=== PATIENT | male | born 1960 | race Caucasian/White ===

== ENCOUNTER 2020-06-18 01:13 | Outpatient (CLI) | payer BC, SELFPAY ==
[2020-06-18 18:11] LABS: SARS-CoV-2 RNA PCR Negative
== END 2020-06-18 01:14 | disposition home or self-care (01) ==
LOC: ANHCOVIDDT 01:14
PROVIDERS: PCP Internal Medicine; Visit Provider Otolaryngology
DX: Z01.812 Encounter for preprocedural laboratory examination (principal); Z11.59 Encounter for screening for other viral diseases
CPT/HCPCS: 87635; C9803; U0003

== ENCOUNTER 2020-06-18 09:10 | Outpatient (CLI) | payer BC, SELFPAY ==
--- NOTE | 2020-06-18 09:20 | ECG_ITS ---
Measurements Intervals Catherine Rate: 89 P: 84 NJ: 152 QRS: 43 QRSD: 92 T: 60 QT: 353 QTc: 432 Interpretive Statements SINUS RHYTHM INCOMPLETE RIGHT BUNDLE BRANCH BLOCK BASELINE ARTIFACT- I, II, III BORDERLINE ECG Electronically Signed On 06-18-2020 10:27:20 CDT by Alireza Hill D.O.
[2020-06-18 09:58] LABS: Anion Gap 9 mmol/L (8-16); Blood Urea Nitrogen 8 mg/dL (9-20); Calcium 9.2 mg/dL (8.4-10.2); Carbon Dioxide 26 mmol/L (22-30); Chloride 100 mmol/L (98-107); Estimated Glomerular Filt Rate > 60; Glucose 115 mg/dL (75-110); Potassium 4.3 mmol/L (3.4-5.0); Sodium 135 mmol/L (137-145)
== END 2020-06-18 09:11 | disposition home or self-care (01) ==
PROVIDERS: PCP Internal Medicine; Visit Provider Anesthesiology
DX: Z01.818 Encounter for other preprocedural examination (principal); I10 Essential (primary) hypertension; Z79.899 Other long term (current) drug therapy
CPT/HCPCS: 36415; 80048; 93005

== ENCOUNTER 2020-06-21 01:46 | Day surgery (SDC) | payer BC, SELFPAY ==
[2020-06-13 11:32] VITALS: BMI 35.7
--- NOTE | 2020-06-20 10:11 | WPDANESEPP ---
Anes - Eval Pre Procedure Procedure: Operation Date: 06/21/20 07:30 Proposed Procedures p Removal Left Myringotomy Tube - Reilly Reyes MD Date/Time: 06/20/20 10:11 Pre Op Diagnosis: left chronic otitis media Patient Data Age: 60 Gender: M Height: 1.65 m Weight: 97.52 kg Allergies Allergy/AdvReac Type Severity Reaction Status Date / Time No Known Allergies Allergy Verified 06/13/20 11:33 Home Medications Medication Instructions Recorded Confirmed Type acetaminophen 300 mg-codeine 30 mg 1 tablet PO Q4-6H PRN #30 tablet 06/13/20 06/13/20 Rx tablet atorvastatin 20 mg PO DAILY 06/13/20 06/13/20 History clindamycin HCl 300 mg capsule 300 mg PO Q8H #30 cap 06/13/20 06/13/20 Rx furosemide 40 mg PO DAILY PRN 06/13/20 06/13/20 History lisinopril 20 mg PO DAILY 06/13/20 06/13/20 History ofloxacin 0.3 % ear drops 5 drop EACH EAR BID 10 Days #10 ml 06/13/20 06/13/20 Rx Patient hx anesthesia problems: none Family hx anesthesia problems: none PMFSH Past Medical History Medical History (Updated 06/20/20 @ 10:13 by Aaliyah Pimentel CRNA) COPD (chronic obstructive pulmonary disease) H/O opioid abuse Hyperlipidemia Hypertension Surgical History Surgical History (Updated 06/20/20 @ 10:13 by Aaliyah Pimentel CRNA) H/O knee surgery H/O shoulder surgery Social History Social History Smoking packs per day: 1 Smoking cigarettes per day: 20.0 Years smoked: 47 Smoking pack-years: 47.00 Smoking status: Current some day smoker Tobacco type: cigarettes Alcohol intake: current Drinks per week: 12 Substance use: former Substance use type: former substance user Other substance usage details: PER EMR- PATIENT HAS FORMER HISTORY OF COCAINE/NARCOTIC ABUSE Spiritual care concerns: No Exam Day of Procedure 06/20/20 10:11
--- NOTE | 2020-06-21 06:04 | PM.HPGS ---
History of Present Illness History of Present Illness Consent: Risks, benefits, and alternatives have been discussed and questions answered. Patient agrees to proceed with procedure. Chief complaint: left chronic otitis media Narrative: Baljit Green is a 60 year old male He has a persistent left tube has been persistently draining unresponsive to antibiotics and drops he is admitted now for elective removal left t Review of Systems Review of Systems: All systems reviewed & are unremarkable except as noted in HPI and below PMFSH Past Medical History Medical History (Updated 06/20/20 @ 10:13 by Aaliyah Pimentel CRNA) COPD (chronic obstructive pulmonary disease) H/O opioid abuse Hyperlipidemia Hypertension Surgical History Surgical History (Updated 06/20/20 @ 10:13 by Aaliyah Pimentel CRNA) H/O knee surgery H/O shoulder surgery Social History Social History Smoking packs per day: 1 Smoking cigarettes per day: 20.0 Years smoked: 47 Smoking pack-years: 47.00 Smoking status: Current some day smoker Tobacco type: cigarettes Alcohol intake: current Drinks per week: 12 Alcohol use details: PER EMR- PATIENT HAS HISTORY OF ALCOHOL ABUSE- 12-16 DRINKS/DAY Substance use: former Substance use type: former substance user Other substance usage details: PER EMR- PATIENT HAS FORMER HISTORY OF COCAINE/NARCOTIC ABUSE Spiritual care concerns: No Meds Home Medications and Allergies Home Medications Medication Instructions Recorded Confirmed Type acetaminophen 300 mg-codeine 30 mg 1 tablet PO Q4-6H PRN #30 tablet 06/13/20 06/13/20 Rx tablet atorvastatin 20 mg PO DAILY 06/13/20 06/13/20 History clindamycin HCl 300 mg capsule 300 mg PO Q8H #30 cap 06/13/20 06/13/20 Rx furosemide 40 mg PO DAILY PRN 06/13/20 06/13/20 History lisinopril 20 mg PO DAILY 06/13/20 06/13/20 History ofloxacin 0.3 % ear drops 5 drop EACH EAR BID 10 Days #10 ml 06/13/20 06/13/20 Rx Allergies Allergy/AdvReac Type Severity Reaction Status Date / Time No Known Allergies Allergy Verified 06/13/20 11:33
--- NOTE | 2020-06-21 06:06 | WPDHPUPDATE1 ---
History and Physical Update Update Date/Time: 06/21/20 06:06 History and Physical has been reviewed, including an updated exam of the patient. There are NO changes in the patient's condition. Risks, benefits, and alternatives have been discussed and questions answered. Patient agrees to proceed with procedure.
[2020-06-21] MEDS: ACETAMINOPHEN 500 MG TABLET 1000 MG PO (06:11)
[2020-06-21 06:12] VITALS: BP 141/105; PULSE 97; RESP 24; TEMP 36.2; O2SAT 98
[2020-06-21] MEDS: LACTATED RINGERS 1,000 ML 30 ML IV CONT (06:20)
--- NOTE | 2020-06-21 06:27 | WPDANESEFPP ---
Anes - Eval Final PreProcedure Day of Procedure 06/21/20 06:27 Patient weight: obese Heart: regular rate and rhythm Lungs: clear to auscultation Airway: Mallampati scale class III Neurological: alert and oriented ASA classification: III Emergent: no Anesthetic plan: proceed Anesthesia type and monitoring: general and standard monitoring Informed Consent: The patient's anesthetic plan and its attendant risks and benefits were discussed with the patient/family/POA. Questions were solicited and answers provided to the satisfaction of the patient/family/POA.
[2020-06-21] MEDS: CIPROFLOXACIN HCL 0.3% OP SOLN 2.5 ML BTL 4 DROP EACH EAR (07:22)
[2020-06-21 07:24] VITALS: BP 110/65; PULSE 96; RESP 12; O2SAT 96
--- NOTE | 2020-06-21 07:24 | PM.PROC ---
Procedure Note - Detailed Date of procedure: 06/21/20 Pre-op diagnosis: left chronic otitis media Post-op diagnosis: same Procedure performed: Removal left T-tube Description of procedure: patient prepped and draped in fashion all seizure the left ear was inspected debris suctioned from the ear canal a T-tube was removed drops placed in ear canal procedure terminated anesthesia general postop diagnosis same Anesthesia: GLMA Surgeon: Reilly Reyes MD Estimated blood loss (mL): 0 Drains: No Packing: No Pathology: none sent Complications: No immediate complications Condition: stable Disposition: PACU Findings: left myringotomy tube removed
[2020-06-21 07:45] VITALS: BP 114/67; PULSE 79; RESP 12
[2020-06-21 08:10] VITALS: BP 141/94; PULSE 81; RESP 12
== END 2020-06-21 08:28 | disposition home or self-care (01) ==
PROVIDERS: PCP Internal Medicine; Visit Provider Otolaryngology
PROC: (CPT 69424; principal; 2020-06-21 07:30)
DX: Z45.82 Encounter for adjustment or removal of myringotomy device (stent) (tube) (principal); H66.92 Otitis media, unspecified, left ear; I10 Essential (primary) hypertension; E78.5 Hyperlipidemia, unspecified; J44.9 Chronic obstructive pulmonary disease, unspecified; F17.210 Nicotine dependence, cigarettes, uncomplicated; F10.10 Alcohol abuse, uncomplicated
CPT/HCPCS: 69424; A9270; J2704; J7120

== ENCOUNTER 2022-04-19 03:38 | Observation (INO) | payer SELFPAY ==
[2022-04-19] VITALS (19 sets, daily range): BP systolic 121–189; BP diastolic 72–147; PULSE 75–100; RESP 16–25; TEMP 36.1–36.7; O2SAT 96–100; BMI 31.0
--- NOTE | ~2022-04-19 | US_ITS ---
EXAMINATION: US carotid duplex BI DATE: 04/19/2022 15:00 INDICATION: Syncope TECHNIQUE: Grayscale, color Doppler, and pulsed Doppler images of the cervical carotid arteries were obtained. The degree of vessel stenosis is placed in one of the following categories: normal, <50%, 5 0-69%, >=70% but less than near-occlusion, near-occlusion, or total occlusion. Note that percent sten osis relative to normal distal artery lumen diameter is indirectly measured from velocity measurement s as described by Gregory, et al. Radiology 2003; 229:340-346. Notes: Normal: Peak systolic velocity <125 centimeters/sec and no plaque <50%. Peak systolic velocity <125 ( EDV <40; ICA/CCA PSV ratio <2.0; used these factors only a tandem lesions or low cardiac output or co ntralateral disease) 50-69 %: PSV 125-230 (EDV 40-100; ratio 2-4) >= 70% but less than near occlusion: PSV greater than 230 (EDV > 100; ratio> 4.0) Near Occlusion: PSV that is variable; markedly narrowed lumen Occlusion: Absent flow on color/spectral Doppler and no lumen on rea scale. COMPARISON: None. FINDINGS: RIGHT: The right common carotid artery (CCA) peak systolic velocity (PSV) is 79 cm/s. The right internal car otid artery (ICA) PSV is 68 cm/s. The right ICA end-diastolic velocity (EDV) is 14 cm/s. The right IC A/CCA PSV ratio is 0.9. The external carotid artery (ECA) PSV is 114 cm/s. There is antegrade flow in the right vertebral artery. LEFT: The left CCA PSV is 81 cm/s. The left ICA PSV is 52 cm/s. The left ICA EDV is 17 cm/s. The left ICA/C CA PSV ratio is 0.6. The ECA PSV is 119 cm/s. There is antegrade flow in the left vertebral artery. IMPRESSION: 1. Less than 50% stenosis in the right internal carotid artery by sonographic criteria. 2. Less than 50% stenosis in the left internal carotid artery by sonographic criteria. Reviewed, dictated and finalized at location B. IMPRESSION: 1. Less than 50% stenosis in the right internal carotid artery by sonographic anthony ferrer. 2. Less than 50% stenosis in the left internal carotid artery by sonographic malcolm lucas.
--- NOTE | ~2022-04-19 | US_ITS ---
US abdomen limited INDICATION: Elevated liver function tests PROCEDURE: Realtime right upper abdominal ultrasound. COMPARISON: No prior studies for comparison. FINDINGS: The pancreas is normal without focal mass or pancreatic ductal dilation. Liver echotexture is increased, consistent with fatty infiltration. There is normal directional flow in the portal ve in. The gallbladder is normal without stones, gallbladder wall thickening or pericholecystic fluid. Comm on bile duct measures 4 mm. No sonographic Rivera's sign. IMPRESSION: 1: Hepatic steatosis. Reviewed, dictated and finalized at location B. IMPRESSION: 1: Hepatic steatosis.
--- NOTE | ~2022-04-19 | CT_ITS ---
EXAMINATION: CT brain wo con DATE: 04/19/2022 05:44 INDICATION: Transient alteration of awareness. Visual change in right eye. TECHNIQUE: Computed tomography (CT) of the head was performed without intravenous contrast. The mA wa s adjusted according to patient size. Iterative reconstruction technique was employed. The dose-lengt h product was 681.00 mGy-cm. COMPARISON: None FINDINGS: There are scattered areas of low attenuation in the cerebral white matter. There is no intr acranial hemorrhage, acute infarction, or abnormal intracranial mass lesion. The ventricles are lani l in size. There is mild mucosal thickening in the paranasal sinuses. There are small bilateral masto id effusions. The orbits are normal. IMPRESSION: 1. Mild nonspecific cerebral white matter disease, which likely represents chronic small vessel ische cat disease. Reviewed, dictated and finalized at location A. IMPRESSION: 1. Mild nonspecific cerebral white matter disease, which likely represents senior major gifts officer ricardo small vessel ischemic disease.
--- NOTE | ~2022-04-19 | XR_ITS ---
EXAMINATION: XR chest 1V portable DATE: 04/19/2022 04:18 INDICATION: Cough. TECHNIQUE: A single frontal view of the chest was obtained. COMPARISON: Chest single view 05/18/2019, chest CT 05/18/2019 FINDINGS: There is mild atelectasis in left lower lung zone. No pleural effusion or pneumothorax. The heart size is normal. There are suture anchors in right scapula. IMPRESSION: 1. Mild atelectasis in left lower lung zone. Reviewed, dictated and finalized at location A.
--- NOTE | 2022-04-19 03:46 | ECG_ITS ---
Measurements Intervals Echo Rate: 94 P: 82 UT: 149 QRS: 30 QRSD: 100 T: 59 QT: 357 QTc: 448 Interpretive Statements SINUS RHYTHM COMPARED TO ECG 06/18/2020 09:27:29 NO SIGNIFICANT CHANGES Electronically Signed On 04-19-2022 20:32:20 CDT by Sarah Lechuga M.D.
[2022-04-19] MEDS: predniSONE 20 MG TABLET 40 MG PO (03:58)
--- NOTE | 2022-04-19 04:01 | ED.SOB ---
HPI - SOB/Dyspnea General Chief Complaint: Shortness of Breath/Dyspnea Stated Complaint: SOB Time Seen by Provider: 04/19/22 03:46 History of Present Illness HPI Narrative: 61-year-old male presents here with increasing difficulty breathing over the last few weeks to months, worse on exertion. Per she has also found him slumped over most recently in his car yesterday, drooling and unresponsive, and when he wakes up seems as in confused for about 1 to 2 minutes before being completely back to baseline. She has also found him in this state slumped in the bathroom over the past few months but he didn't want to come to the hospital. She also states that this morning when he woke up he thought he saw something filmy over his right eye, and when he rubbed his eye he could see again. He is denying any chest pain or difficulty breathing. states that over the past few years he seems to be getting more forgetful, and will have bursts of emotion/crying. Denies any chest pain at this time, nausea or vomiting. No headache. No focal numbness or weakness. Related Data Home Medications Medication Instructions Recorded Confirmed furosemide 40 mg tablet 40 mg PO DAILY PRN Edema 06/13/20 06/21/20 lisinopril 20 mg tablet 20 mg PO DAILY 06/13/20 06/21/20 Allergies Allergy/AdvReac Type Severity Reaction Status Date / Time No Known Allergies Allergy Verified 04/19/22 03:53 Review of Systems Review of Systems: CONST: No fever. HEENT: No sore throat C/V: No chest pain RESP: Difficulty breathing GI: No nausea or vomiting : No dysuria. M/S: No joint pain. SKIN: No rash. NEURO: [No headache or focal numbness or weakness] PSYCH: Increased forgetfulness PMFSH Past Medical History Medical History COPD (chronic obstructive pulmonary disease) H/O opioid abuse Hyperlipidemia Hypertension Surgical History Surgical History H/O knee surgery H/O shoulder surgery Social History Social History Smoking packs per day: 1 Smoking cigarettes per day: 20.0 Years smoked: 47 Smoking pack-years: 47.00 Smoking status: Current some day smoker Tobacco type: cigarettes Alcohol intake: current Drinks per week: 12 Alcohol use details: PER EMR- PATIENT HAS HISTORY OF ALCOHOL ABUSE- 12-16 DRINKS/DAY Substance use: former Substance use type: former substance user Other substance usage details: PER EMR- PATIENT HAS FORMER HISTORY OF COCAINE/NARCOTIC ABUSE Spiritual care concerns: No Exam Narrative: EXAMINATION OF ORGAN SYSTEMS/BODY AREAS: Constitutional: Vital signs per nursing GENERAL: Dyspneic HEAD: Normal with no signs of head trauma. EYES: EOMI, conjunctiva normal, VA 20/30 OD and 20/25 OS, dried crust/discharge around right eye ENT: Hearing grossly intact LUNGS: Tachypneic, prolonged end expiratory phase with wheezing HEART: [Regular rate and rhythm] ABD: [Soft], [nontender to palpation] EXT: Normal range of motion SKIN: [No rashes or lesions.] NEURO: [Alert and oriented x 3. No gross focal sensory or strength deficits.] PSYCH: Slightly anxious/labile affect Course Vital Signs Vital signs: Vital Signs Temperature 98.1 F 04/19/22 03:48 Pulse Rate 98 04/19/22 03:48 Respiratory Rate 25 H 04/19/22 03:48 Blood Pressure 189/108 H 04/19/22 03:48 Pulse Oximetry 97 04/19/22 03:48 Oxygen Delivery Room Air 04/19/22 03:48 Temperature 98.1 F 04/19/22 03:48 Pulse Rate 99 04/19/22 05:20 Respiratory Rate 20 04/19/22 05:16 Blood Pressure 143/97 H 04/19/22 05:16 Pulse Oximetry 100 04/19/22 05:17 Oxygen Delivery Room Air 04/19/22 05:17 MDM - SOB/Dyspnea MDM Narrative Medical decision making narrative: 61-year-old male presents with multiple episodes of syncope, dyspnea on exertion, which has been worsening over the last
[2022-04-19] MEDS: ALBUTEROL SULFATE NEB 2.5 MG/3 ML INH 15 MG INHALATION (04:04)
[2022-04-19] MEDS: IPRATROPIUM BR 0.02% INH SOLN 0.5 MG/2.5 ML VIAL 1 MG INHALATION (04:04)
[2022-04-19 04:09] LABS: Basophils Absolute Auto 0.1 K/mm3 (0.0-0.1); Basophils Percent Auto 0.9 % (0.2-1.2); Eosinophils Absolute Auto 0.1 K/mm3 (0-0.3); Immature Granulocyte Absolute 0.02 K/mm3 (0.00-0.031); Immature Granulocyte Percent A 0.3 % (0-0.5); Lymphocytes Absolute Auto 2.23 K/mm3 (0.9-3.2); Lymphocytes Percent Auto 38.6 % (18.3-44.2); Mean Corpuscular HGB Conc 34.1 g/dl (32-36); Mean Corpuscular Hemoglobin 34.2 pg (26-34); Mean Corpuscular Volume 100.5 fl (80-100); Monocytes Absolute Auto 0.8 K/mm3 (0.1-0.6); Neutrophils Absolute Auto 2.7 K/mm3 (1.3-6.7); Neutrophils Percent Auto 46.2 % (45.5-73.1); Platelet Count Result 209 k/mm3 (150-375); Red Blood Count 4.38 M/mm3 (4.6-6.20); Red Cell Distribution Width 12.2 % (11.5-14.5); White Blood Count 5.8 K/mm3 (4.5-10.0)
[2022-04-19] MEDS: ONDANSETRON INJ 4 MG/2 ML VIAL IV PUSH (04:28)
[2022-04-19 04:31] LABS: NT Pro B Type Natriuretic Pept 104 pg/mL (5-100); Troponin I < 0.012 ng/mL (0.000-0.034)
[2022-04-19 04:35] LABS: Alanine Aminotransferase 161 U/L (6-50); Alkaline Phosphatase 117 U/L (38-126); Anion Gap 5 mmol/L (8-16); Aspartate Amino Transferase 123 U/L (17-59); Bilirubin,Total 0.4 mg/dL (0.2-1.3); Blood Urea Nitrogen 3 mg/dL (9-20); Calcium 9.1 mg/dL (8.4-10.2); Carbon Dioxide 27 mmol/L (22-30); Chloride 99 mmol/L (98-107); Estimated CRCL calculation 121 ml/min; Estimated Glomerular Filt Rate > 60; Glucose 114 mg/dL (65-110); Magnesium 2.1 mg/dL (1.6-2.3); Potassium 3.8 mmol/L (3.4-5.0); Sodium 131 mmol/L (137-145)
[2022-04-19 04:42] LABS: SARS-CoV-2 RNA PCR Negative
[2022-04-19] MEDS: LACTATED RINGERS 1,000 ML 999 ML IV CONT (04:49)
[2022-04-19] MEDS: chlordiazePOXIDE (*CRX) 25 MG CAPSULE PO ×4 (04:50→23:03)
[2022-04-19] MEDS: THIAMINE HCL 100 MG TABLET PO (05:07)
[2022-04-19 05:19] LABS: Ethanol < 10 mg/dL (<10)
[2022-04-19 05:23] LABS: Alveolar/Arterial O2 Gradient 37.6 mmHg; Base Excess ABG 1.4 mEq/l (+/-2.0); Fractional Inspired Oxygen 21 %; Oxygen Content ABG 19.8 %vol (16.0-22.0); Oxygen Saturation ABG 94.6 % (95.0-100.0); Oxyhemoglobin 92.3 % THb (90.0-100.0); PCO2 ABG 36.4 mmHg (35.0-45.0); PO2 ABG 68.5 mmHg (80.0-100.0); PO2 FiO2 Ratio Arterial Blood 3.26 %; Total Hemoglobin 15.3 g/dL (12.0-18.0); pH ABG 7.454 (7.350-7.450)
[2022-04-19] MEDS: FOLIC ACID 1 MG TABLET PO (05:23)
[2022-04-19 05:24] LABS: Device ROOM AIR; Modified Allen's Test Pass; Site Drawn RIGHT RADIAL
[2022-04-19 06:22] LABS: Amphetamine Screen Urine Negative (Negative); Barbiturate Screen Urine Negative (Negative); Benzodiazepines Screen Urine Negative (Negative); Cannabinoid Screen Urine Negative (Negative); Cocaine Screen Urine Positive (Negative); Methadone Screen Urine Negative (Negative); Opiate Screen Urine Negative (Negative); Phencyclidine Screen Urine Negative (Negative)
--- NOTE | 2022-04-19 06:40 | ADMGEN ---
This patient, Baljit Green, was admitted to [facility] Surg Room 331-01. Patient/family oriented to hospital policies and general routines including ID bracelet, bed and alarms, visiting hours, pain management, procedures, bathroom and other care routines, personal items, smoking policy, room service/diet, and visiting hours. Information on how to activate the Rapid Response Team has been discussed. Patient/Family are encouraged to report perceived risks to care and to ask questions if they do not understand what they are told or what they should do.
--- NOTE | 2022-04-19 09:12 | PM.IMHP ---
H&P: HPI History of Present Illness Date/Time: 04/19/22 09:12 Chief Complaint: Syncope Narrative: 61yo male with HTN, alcoholism, untreated MICHELL and COPD with continued tobacco abuse here for syncopal episodes. Patient has had 3 episodes of syncope over the past 2-3 months. Twice occurred in the bathroom. Patient states he is confused for few seconds when he comes around before becoming oriented. He is weak all over which lasts about 10-15 minutes. No urine incontinence. It occurs when he is having bowel movements. He denies constipation or diarrhea. He denies that he bears down. He denies abdominal pain. Patient does drink 8-9 alcohol drinks per day. He has a sedentary lifestyle where he ?sits all day outside?.Patient has a history of opioid abuse that he was taking for chronic back shoulder pain. He was weaned off opioids about 2 years ago. He denies any history of other drug use and no history of IV drug use. His urine is positive for cocaine but patient states he has no idea how this be positive since he never leaves the house. He does smoke tobacco 1 pack per day the past 50 years. Patient has sleep apnea that is untreated. He wear the CPAP for about a month but stopped using it because he could not tolerated greater than 2 years ago. He also has a history of nausea vomiting with dry heaves every morning around 4:00 a.m.. He wakes up gagging. He denies that his has told he has apneic spells. He denies any hematemesis or coffee-ground emesis. No fever or chills. He has a chronic headache. He denies any odynophagia or dysphagia. He has a nonproductive cough use a worse in the morning. He denies any chest pain or palpitations. He does state that he flunked a stress test about 5 years ago. He never had a heart catheterization for unclear reasons. He has dyspnea on exertion with even minimal exertion. He has not seen his primary care doctor for about a year due to insurance. He has nocturia 3-4 times a night which is chronic. He sleeps flat in the bed. No orthopnea or PND. He does void and she was in small volumes. Denies any prostate problems. He has never had DTs or withdrawal symptoms but has only stop drinking at most for a day. Did have seizures as a baby. He has never been in alcohol rehab. Patient drove his to the pharmacy to steel pickler the medication and when she returned to the car she found the patient drooling and unresponsive. He was confused for 1-2 minutes before return to baseline. He refused to come to the hospital at that time. Around 3:00 a.m. this morning, patient complain of right eye blurriness that was better when he rub the eye. Due to his vision change, patient presented emergency room for evaluation. In the emergency room, blood pressure was 189/108. Sodium is 131, AST 123 and ALT 161. Urine drug screen was positive for cocaine. Alcohol level was less than 10. COVID test was negative. ABG 7.45/36/68 on room air. EKG was normal. Brain CT showed mild nonspecific cerebral white matter disease which. No acute findings. Chest x-ray showed mild atelectasis in left lower lung. There was crusting noted by the ED physician and the area was cleaned and patient states his vision has returned to normal. Patient was admitted for further care. Patient gave permission to speak to his significant other but no answer at phone number listed. Review of Systems Review of Systems: All systems reviewed & are unremarkable except as noted in HPI and below PMFSH Past Medical History Medical History (Updated 04/19/22 @ 10:46 by Davonte Godwin MD) COPD (chronic obstructive pulmonary disease) H/O opioid abuse Hyperlipidemia Hypertension MICHELL (obstructive sleep apnea) Surgical History Surgical History H/O knee surgery H/O shoulder surgery Family History Family History (Updated 04/19/22 @ 10:40 by Davonte Godwin MD) Father
[2022-04-19] MEDS: ENOXAPARIN 40 MG/0.4 ML SYRINGE SUB-Q (12:14)
[2022-04-19] MEDS: lisinopriL 20 MG TABLET PO (12:15)
[2022-04-19] MEDS: PANTOPRAZOLE 40 MG TABLET PO (12:15)
[2022-04-19] MEDS: THIAMINE HCL 200 MG/2 ML VIAL 100 MG IV PUSH (12:15)
[2022-04-19] MEDS: FOLIC ACID 1 MG/0.2 ML INJ IV PUSH (12:18)
[2022-04-19] MEDS: IPRATROPIUM BR 0.02% INH SOLN 0.5 MG/2.5 ML VIAL INHALATION ×2 (13:09→20:42)
[2022-04-19] MEDS: ALBUTEROL SULFATE NEB 2.5 MG/3 ML INH 5 MG INHALATION ×2 (13:09→20:42)
[2022-04-19] MEDS: LORazepam INJ (*CRX) 2 MG/ML VIAL 1 MG IV PUSH (14:06)
[2022-04-19] MEDS: ACETAMINOPHEN 325 MG TABLET 650 MG PO (23:03)
[2022-04-20] VITALS (8 sets, daily range): BP systolic 115; BP diastolic 85; PULSE 67–97; RESP 16–18; TEMP 36.6; O2SAT 97–98
[2022-04-20] MEDS: ALBUTEROL SULFATE NEB 2.5 MG/3 ML INH 5 MG INHALATION ×2 (03:06→07:41)
[2022-04-20] MEDS: IPRATROPIUM BR 0.02% INH SOLN 0.5 MG/2.5 ML VIAL INHALATION ×2 (03:06→07:40)
[2022-04-20] MEDS: ACETAMINOPHEN 325 MG TABLET 650 MG PO (04:59)
[2022-04-20] MEDS: chlordiazePOXIDE (*CRX) 25 MG CAPSULE PO (05:00)
[2022-04-20 05:40] LABS: Ammonia < 9 umol/L (9-30)
[2022-04-20 05:53] LABS: Alanine Aminotransferase 99 U/L (6-50); Albumin Level 3.4 g/dL (3.5-5.1); Alkaline Phosphatase 75 U/L (38-126); Anion Gap 4 mmol/L (8-16); Aspartate Amino Transferase 58 U/L (17-59); Bilirubin,Total 0.4 mg/dL (0.2-1.3); Blood Urea Nitrogen 3 mg/dL (9-20); Calcium 8.7 mg/dL (8.4-10.2); Carbon Dioxide 26 mmol/L (22-30); Chloride 104 mmol/L (98-107); Estimated CRCL calculation 121 ml/min; Estimated Glomerular Filt Rate > 60; Glucose 136 mg/dL (65-110); Magnesium 2.2 mg/dL (1.6-2.3); Phosphorus 3.7 mg/dL (2.5-4.5); Potassium 3.3 mmol/L (3.4-5.0); Sodium 134 mmol/L (137-145)
--- NOTE | 2022-04-20 06:00 | ECHO_ITS ---
Patient Info Name: Baljit Green Age: 61 years : 1960 Gender: Male Ht: 68 in Wt: 204 lbs BSA: 2.13 m2 HR: 97 bpm BP: 115 / 85 mmHg Heart Rhythm: Sinus Rhythm Technical Quality: Fair Exam Date: 04/20/2022 8:52 AM Exam Location: [facility] Pulmonary Patient Status: Outpatient Admit Date: 04/19/2022 Staff Ordering Physician: Madina Rosario MD Soft Work Wrapper Examiner: Yanelis Noonan RDCS Attending Provider: Jes Sanchez DO Exam Type: CA echo doppler color flow Study Info Indications - syncope, rosas Complete two-dimensional, color flow and Doppler transthoracic echocardiogram is performed. Summary 1. Complete two-dimensional, color flow and Doppler transthoracic echocardiogram is performed. 2. Left ventricular systolic function is hyperdynamic, estimated at >70%. 3. Left ventricular chamber dimension is normal. 4. No significant valve abnormality. Left Ventricle Left ventricular chamber dimension is normal. Left ventricular systolic function is hyperdynamic, estimated at >70%. The left ventricular diastolic function is normal. Right Ventricle Right ventricular chamber dimension is normal. Left Atria Left atrial chamber dimension is normal. Right Atria Right atrial chamber dimension is normal. Aortic Valve The aortic valve is normal. Pulmonic Valve The pulmonic valve is not well visualized. Mitral Valve The mitral valve has normal leaflets. Tricuspid Valve The tricuspid valve leaflets are normal. Pericardium/Pleural The pericardium appears normal. Aorta The aortic root size at the sinus of Valsalva is normal. Left Ventricular Outflow Tract Name Value Normal LVOT 2D LVOT Diameter 2.0 cm LVOT Doppler LVOT Peak Gradient 9 mmHg LVOT Mean Gradient 4 mmHg LVOT VTI 24 cm LVOT VTI/AV VTI Ratio 0.8 LVOT Stroke Volume 72 ml LVOT CO 6.1 l/min LVOT CI 2.8 l/min/m2 Pulmonic Valve Name Value Normal RVOT Doppler RVOT Peak Gradient 4 mmHg PV Doppler PV Peak Gradient 6 mmHg Mitral Valve Name Value Normal MV Doppler MV Decel Callahan 430 cm/s2 MV PHT 63 ms MV Area (PHT) 3.5 cm2 4.0-5.0 MV Diastolic Function
[2022-04-20 06:18] LABS: Basophils Percent Auto 0.6 % (0.2-1.2); Eosinophils Percent Auto 0.6 % (0-4.4); Hematocrit 40.8 % (42.0-52.0); Hemoglobin 13.3 g/dL (14.0-18.0); Immature Granulocyte Absolute 0.02 K/mm3 (0.00-0.031); Immature Granulocyte Percent A 0.4 % (0-0.5); Lymphocytes Absolute Auto 2.21 K/mm3 (0.9-3.2); Lymphocytes Percent Auto 40.8 % (18.3-44.2); Mean Corpuscular HGB Conc 32.6 g/dl (32-36); Mean Corpuscular Hemoglobin 34.4 pg (26-34); Mean Corpuscular Volume 105.4 fl (80-100); Mean Platelet Volume 10.5 fl (7.4-10.4); Monocytes Absolute Auto 0.4 K/mm3 (0.1-0.6); Monocytes Percent Auto 6.8 % (2.6-8.5); Neutrophils Absolute Auto 2.8 K/mm3 (1.3-6.7); Neutrophils Percent Auto 50.8 % (45.5-73.1); Platelet Count Result 201 k/mm3 (150-375); Red Blood Count 3.87 M/mm3 (4.6-6.20); Red Cell Distribution Width 12.4 % (11.5-14.5); White Blood Count 5.4 K/mm3 (4.5-10.0)
[2022-04-20 07:29] LABS: Iron 104 ug/dL (49-181)
[2022-04-20 07:39] LABS: Percent Iron Saturation 57 % (20-50)
[2022-04-20 07:57] LABS: HIV 1/2 Ab P24 Ag Result Negative (Negative)
--- NOTE | 2022-04-20 09:31 | PCPTNOTE ---
Spoke with Dr. Godwin, per nursing staff pt has been IND in his room. Dr. Godwin agreed for orders to be cancelled.
--- NOTE | 2022-04-20 09:31 | WPDNEURCNPN ---
Assessment and Plan Assessment and plan (1) Syncope: Code(s): R55 - Syncope and collapse Status: Acute Plan recurrent episodes of passing out as per the history with normal gross neurological examination will benefit from the EEG to rule out the possibility of seizures echocardiogram is being done further recommendation will be accordingly consideration to the possibility of use of drugs should be kept in mind Consult date: 04/20/22 Time Seen: 09:00 HPI: Baljit Green is a 61 year old male Admitted to the hospital through the emergency room for the complaints of increasing difficulties in breathing over the last several weeks patient's found him slumped over in his car yesterday drooling and unresponsive and when he woke up he appeared somewhat confused for about couple of minutes before being completely back to baseline she has also found him in this state slumped in the bathroom over the past few months but he was reluctant to come to the hospital he gave no history of any other associated symptoms such as chest pain or difficulties in breathing and his mention in the emergency room that he is becoming increasingly forgetful and he will have the burst of emotional crying he has been taking furosemide 40 mg daily lisinopril 20 mg daily he is not allergic to any medication. He carries the diagnosis of COPD in addition to history of hypertension hyperlipidemia and opioid abuse and has also undergone knee surgery and shoulder surgery, he has smoked for 47 years his smoking pack-years 47 currently some day smoker and drinks at least 12 drinks per week his initial vital signs were stable except his blood pressure was 189/108 he was admitted to the hospital with these particular complaints and initial lab was normal so as the EKG without evidence of atrial fibrillation, routine lab was normal, initial CT scan was normal except the chronic small-vessel ischemic changes carotid study was normal so as the x-ray of the chest except mild atelectasis in the left lower lung zones hepatic ultrasound documented steatosis carotid study was with less than 50% stenosis bilaterally Review of Systems Review of Systems: All systems reviewed & are unremarkable except as noted in HPI and below [facility] Past Medical History Medical History (Updated 04/20/22 @ 09:46 by Abiel Bazzi MD) COPD (chronic obstructive pulmonary disease) H/O opioid abuse Hyperlipidemia Hypertension MICHELL (obstructive sleep apnea) Surgical History Surgical History H/O knee surgery H/O shoulder surgery Family History Family History Father Diverticulitis Father from complications Social History Social History Social History: patient drinks 8-9 alcohol drinks per day. He smokes a pack a day for past 50 years. History of opioid use in the past. Positive drug screen this admission. Lives at home with his signif other. He is a full code. He nominates his significant other to be the individual would make medical decisions for him if he is unable Smoking packs per day: 1 Smoking cigarettes per day: 20.0 Years smoked: 47 Smoking pack-years: 47.00 Smoking status: Current some day smoker Alcohol intake: current Drinks per week: 12 Alcohol use details: PER EMR- PATIENT HAS HISTORY OF ALCOHOL ABUSE- 12-16 DRINKS/DAY Substance use: former Substance use type: former substance user Spiritual care concerns: No Meds Home Medications and Allergies Home Medications Medication Instructions Recorded Confirmed Type furosemide 40 mg tablet 40 mg PO DAILY PRN Edema 06/13/20 04/19/22 History lisinopril 20 mg tablet 20 mg PO DAILY 06/13/20 04/19/22 History Allergies Allergy/AdvReac Type Severity Reaction Status Date / Time No Known Allergies Allergy Verified 04/19/22 03:53 Karina
--- NOTE | 2022-04-20 09:40 | PCOTNOTE ---
Addendum entered by Marilee Ricketts, OT 04/20/22 09:42: Canceled orders for evaluation Original Note: Spoke with hospitalist, Dr. Godwin, who agreed that pt. is not appropriate for therapy services, as he has been ambulating and participating without assist from nursing while in room
[2022-04-20] MEDS: POTASSIUM CHLORIDE 20 MEQ TABLET 40 MEQ PO (10:16)
[2022-04-20] MEDS: lisinopriL 20 MG TABLET PO (10:16)
[2022-04-20] MEDS: THIAMINE HCL 200 MG/2 ML VIAL 100 MG IV PUSH (10:16)
[2022-04-20] MEDS: FOLIC ACID 1 MG/0.2 ML INJ IV PUSH (10:16)
[2022-04-20] MEDS: PANTOPRAZOLE 40 MG TABLET PO (10:16)
[2022-04-20 10:42] LABS: Hepatitis B Surface Antigen Negative (Negative)
[2022-04-20 10:47] LABS: HAV RESULT Negative (Negative)
--- NOTE | 2022-04-20 10:56 | PM.DS ---
DS: Admitting Diagnosis Discharge Date 04/20/22 Admitting Diagnosis Syncope DS: Discharge Diagnosis Discharge Diagnosis (1) Syncope: Code(s): R55 - Syncope and collapse Status: Acute (2) Alcohol use disorder: Status: Acute (3) Positive urine drug screen: Code(s): R82.5 - Elevated urine levels of drugs, medicaments and biological substances Status: Acute (4) Elevated LFTs: Code(s): R79.89 - Other specified abnormal findings of blood chemistry Status: Acute (5) MICHELL (obstructive sleep apnea): Code(s): G47.33 - Obstructive sleep apnea (adult) (pediatric) Status: Acute (6) Hypertension: Code(s): I10 - Essential (primary) hypertension Status: Acute (7) COPD (chronic obstructive pulmonary disease): Code(s): J44.9 - Chronic obstructive pulmonary disease, unspecified Status: Acute DS: Summary Hospital Course Reason for hospitalization: 61yo male Hospital Course: Patient presents with complaints of syncopal episode. ABG 7.45/36/68. LFTs mildly elevated felt related to alcohol use. This improved with abstaining from alcohol. Alcohol level was negative. Hepatitis panel was negative except for hepatitis B surface antibody probably related to a vaccine. COVID was negative. Brain CT showed mild nonspecific cerebral white matter disease. Chest x-ray was consistent with atelectasis. No fevers here. White count remained normal making pneumonia less likely. Carotid Doppler showed less than 50% stenosis in the bilateral internal carotid arteries. Abdominal ultrasound showed hepatic steatosis. Patient is having syncopal episodes that is concerning for withdrawal seizures. He also is an alcoholic and had a positive drug screen so consider patient passing out. He did state he eats very little and can go days without eating contributing to his symptoms. Urine drug screen is positive for cocaine. He denied drug use but later states he smokes marijuana with a friend that may have been laced with cocaine. Abstaining from alcohol and drug use is a must. Patient was educated about the benefits of abstain from alcohol, drug and tobacco use. Care coordination provided information about alcohol/drug rehab. He was started on thiamine, folate and Librium. He ws monitored with CIWA protocol. Ativan was available as needed for elevated CIWA score. Neuro consulted and appreciate their input. Echocardiogram performed and is pending. Patient up ambulating in the room without difficulty. He feels much better. Eating normally. He is requesting discharge. Neurology felt patient could be discharged home. No driving. Patient did well was able to discharge home on 04/20/2022. Status at Discharge Cognitive/behavioral status at discharge: Stable Time Spent with Patient Time attestation: Total time spent providing and/or coordinating discharge services: 35 minutes Time spent: Greater than 30 minutes Exam Narrative: AF 97.8 115/85 72 18 98% ra Gen - NARD Chest - CTA bilaterally CV - RRR S1/S2 Abd - abdomen was soft. Obese. Nontender. Positive bowel sounds. Ext - no pedal edema. Neuro - nonfocal Psych - normal mood and affect. no tremors Skin - warm and dry. No diaphoresis DS: Data Data Completed and Pending Labs on day of discharge: Labs from last 24 hours 04/20/22 04/20/22 04/20/22 05:22 05:22 05:22 WBC RBC Hgb Hct MCV MCH MCHC RDW Plt Count MPV Immature Gran % (Auto) Neut % (Auto) Lymph % (Auto) Dickson % (Auto) Eos % (Auto) Baso % (Auto) Lymph # (Auto) Dickson # (Auto) Eos # (Auto) Baso # (Auto) Abs Immat Gran (auto) Absolute Neuts (auto) Absolute Nucleated RBC Nucleated RBC % Sodium Potassium Chloride Carbon Dioxide Anion Gap BUN Creatinine Estim Creat Clear Calc Estimated GFR Glucose Calcium Phosphorus
[2022-04-20 11:00] LABS: Hepatitis B Surface Anti Res Positive; Hepatitis C Virus Antibody Negative (Negative)
[2022-04-24 03:09] LABS: Hepatitis B Core Ab Total Nonreactive (Nonreactive)
--- NOTE | 2022-04-24 08:18 | PC.NURSE ---
HEP B core is non-reactive. Dr. Tato ivory.
== END 2022-04-20 11:49 | disposition home or self-care (01) ==
LOC: ANHED 04:05 → ANH3MEDSUR 05:58
PROVIDERS: Internal Medicine; Admitting Provider Internal Medicine; Emergency Provider Emergency Medicine; PCP Internal Medicine; Visit Provider Internal Medicine
DX: R55 Syncope and collapse (principal); R06.02 Shortness of breath; R82.5 Elevated urine levels of drugs, medicaments and biological substances; R79.89 Other specified abnormal findings of blood chemistry; J44.9 Chronic obstructive pulmonary disease, unspecified; I65.23 Occlusion and stenosis of bilateral carotid arteries; I10 Essential (primary) hypertension; E78.5 Hyperlipidemia, unspecified; F17.210 Nicotine dependence, cigarettes, uncomplicated; G47.33 Obstructive sleep apnea (adult) (pediatric); F10.20 Alcohol dependence, uncomplicated; Z11.4 Encounter for screening for human immunodeficiency virus [HIV]; Z20.822 Contact with and (suspected) exposure to COVID-19
CPT/HCPCS: 36415; 36600; 70450; 71045; 76705; 80053; 80307; 82140; 82607; 82728; 82746; 82805; 83540; 83550; 83735; 83880; 84100; 84443; 84484; 85025; 86703; 86704; 86706; 86709; 86803; 87340; 93005; 93306; 93880; 94640; 96361; 96372; 96374; 96375; 99285; A9270; C9803; G0378; G0379; G0432; J1650; J2060; J2405; J3411; J7120; J7512; U0003; U0005

== ENCOUNTER 2023-07-28 17:22 | Emergency (ER) | payer SELFPAY ==
[2023-07-28] VITALS (23 sets, daily range): BP systolic 126–178; BP diastolic 77–126; PULSE 95–115; RESP 12–33; TEMP 36.4; O2SAT 94–100
--- NOTE | ~2023-07-28 | XR_ITS ---
EXAMINATION: XR chest 2V DATE: 07/28/2023 17:53 INDICATION: Left sided chest pain and abdominal pain with weakness TECHNIQUE: frontal and lateral views of the chest were obtained. COMPARISON: Chest radiograph dated 04/29/[address] dated 05/18/2019 FINDINGS: Chronic pleural parenchymal scarring at the lingula along side a small left paracardial fat pad. Michael tional chronic pleural thickening at the posterior left mid and lower lung zone. No new airspace opac ities, pulmonary edema, pleural effusion or pneumothorax. The cardiomediastinal silhouette is normal. Chronic T6 compression fracture with 40% anterior vertebral body height loss and with minimal anteri or wedging at a few lower thoracic levels. Postoperative change at the right glenoid. IMPRESSION: 1. Chronic pleural parenchymal scarring at the left mid and lower lung zones. No acute cardiopulmonar y disease. Reviewed, dictated and finalized at location A. IMPRESSION: 1. Chronic pleural parenchymal scarring at the left mid and lower lung zones. N o acute cardiopulmonary disease.
--- NOTE | 2023-07-28 17:23 | ECG_ITS ---
Measurements Intervals [place] Rate: 108 P: 90 KS: 133 QRS: 45 QRSD: 92 T: 87 QT: 336 QTc: 452 Interpretive Statements SINUS TACHYCARDIA BORDERLINE ST-T WAVE ABNORMALITY- ANTEROLAT/INF LEADS BASELINE ARTIFACT- I, II, III, AVR, AVL, AVF, V1-V6 ABNORMAL ECG COMPARED TO ECG 04/19/2022 03:53:[address] NOW PRESENT [address] (T WAVE) DEVIATION NOW PRESENT Electronically Signed On 07-28-2023 19:56:04 CDT by Alireza Hill D.O.
[2023-07-28 17:43] LABS: Basophils Percent Auto 0.5 % (0.2-1.2); Eosinophils Percent Auto 0.2 % (0-4.4); Hematocrit 44.3 % (42.0-52.0); Hemoglobin 15.3 g/dL (14.0-18.0); Immature Granulocyte Absolute 0.03 K/mm3 (0.00-0.031); Immature Granulocyte Percent A 0.3 % (0-0.5); Lymphocytes Absolute Auto 4.79 K/mm3 (0.9-3.2); Lymphocytes Percent Auto 54.7 % (18.3-44.2); Mean Corpuscular HGB Conc 34.5 g/dl (32-36); Mean Corpuscular Hemoglobin 35.7 pg (26-34); Mean Corpuscular Volume 103.5 fl (80-100); Mean Platelet Volume 9.8 fl (7.4-10.4); Monocytes Absolute Auto 0.8 K/mm3 (0.1-0.6); Monocytes Percent Auto 9.5 % (2.6-8.5); Neutrophils Absolute Auto 3.1 K/mm3 (1.3-6.7); Neutrophils Percent Auto 34.8 % (45.5-73.1); Platelet Count Result 243 k/mm3 (150-375); Red Blood Count 4.28 M/mm3 (4.6-6.20); Red Cell Distribution Width 12.3 % (11.5-14.5); White Blood Count 8.8 K/mm3 (4.5-10.0)
[2023-07-28 17:53] LABS: Alanine Aminotransferase 52 U/L (6-50); Albumin Level 3.8 g/dL (3.5-5.1); Alkaline Phosphatase 151 U/L (38-126); Anion Gap 10 mmol/L (8-16); Aspartate Amino Transferase 104 U/L (17-59); Bilirubin,Total 0.6 mg/dL (0.2-1.3); Calcium 8.7 mg/dL (8.4-10.2); Carbon Dioxide 22 mmol/L (22-30); Chloride 98 mmol/L (98-107); Estimated CRCL calculation 122 ml/min; Estimated Glomerular Filt Rate > 60; Glucose 104 mg/dL (65-110); Lipase 82 U/L (23-300); Potassium 4.2 mmol/L (3.4-5.0); Sodium 130 mmol/L (137-145)
[2023-07-28 17:55] LABS: Prothrombin Time 13.7 Seconds (11.1-14.7)
[2023-07-28 17:56] LABS: Partial Thromboplastin Time 34.4 SECONDS (22.3-36.8)
[2023-07-28 18:04] LABS: Troponin I < 0.012 ng/mL (0.000-0.034)
[2023-07-28 18:38] LABS: Blood Urea Nitrogen < 2 mg/dL (9-20)
--- NOTE | 2023-07-28 19:38 | ED.CHESTPAIN ---
HPI - Chest Pain General Chief Complaint: Chest Pain Stated Complaint: CP/abd pain Time Seen by Provider: 07/28/23 19:02 History of Present Illness HPI narrative: Patient is a 63-year-old male presenting with chest pain, abdominal pain, shortness of breath, fatigue. States the symptoms are chronic. States that all he does is drinks alcohol and smokes cigarettes. His is at bedside and confirms. States that he has had increasingly decreased appetite and barely eats anymore. Patient states that he cannot stop drinking because when he starts to shake. He has not seen his primary in many years due to insurance problems. States that today he felt lightheaded so he came in for evaluation. He complains of chronic lower abdominal pain. Also complains of intermittent chest pain that is unchanged. States that it is hard for him to breathe but he continues to smoke. No fevers or chills, headache, focal numbness or weakness, palpitations, vomiting, diarrhea, dysuria, leg swelling. Related Data Home Medications Medication Instructions Recorded Confirmed furosemide 40 mg tablet 40 mg PO DAILY PRN Edema 06/13/20 04/19/22 lisinopril 20 mg tablet 20 mg PO DAILY 06/13/20 04/19/22 Allergies Allergy/AdvReac Type Severity Reaction Status Date / Time No Known Allergies Allergy Verified 04/19/22 03:53 Review of Systems Review of Systems: All systems reviewed & are unremarkable except as noted in HPI and below PMFSH Past Medical History Medical History COPD (chronic obstructive pulmonary disease) H/O opioid abuse Hyperlipidemia Hypertension MICHELL (obstructive sleep apnea) Surgical History Surgical History H/O knee surgery H/O shoulder surgery Family History Family History Father Diverticulitis Father from complications Social History Social History Social History: patient drinks 8-9 alcohol drinks per day. He smokes a pack a day for past 50 years. History of opioid use in the past. Positive drug screen this admission. Lives at home with his signif other. He is a full code. He nominates his significant other to be the individual would make medical decisions for him if he is unable Smoking packs per day: 1 Smoking cigarettes per day: 20.0 Years smoked: 47 Smoking pack-years: 47.00 Smoking status: Current some day smoker Alcohol intake: current Drinks per week: 12 Alcohol use details: PER EMR- PATIENT HAS HISTORY OF ALCOHOL ABUSE- 12-16 DRINKS/DAY Substance use: former Substance use type: former substance user Spiritual care concerns: No Exam Narrative: GENERAL: Chronically ill-appearing, nontoxic, no acute distress HEAD: Normocephalic, atraumatic. EYES: PERRLA and EOMI. ENT: Mucous membranes moist. NECK: Supple. CHEST: Diminished breath sounds bilaterally, no respiratory distress HEART: Regular rate and rhythm ABDOMEN: Soft, very mild tenderness with palpation in lower abdomen, no focal tenderness, no guarding or rebound EXTREMITIES: Normal range of motion. No edema. SKIN: Warm, dry, scattered ecchymoses on extremities NEURO: No focal deficits. Alert and oriented x3. PSYCH: Normal mood and affect. Course Vital Signs Vital signs: Vital Signs Temperature 97.6 F 07/28/23 17:24 Pulse Rate 115 H 07/28/23 17:24 Respiratory Rate 22 H 07/28/23 17:24 Blood Pressure 164/96 H 07/28/23 17:24 Pulse Oximetry 100 07/28/23 17:24 Oxygen Delivery Room Air 07/28/23 17:24 Temperature 97.6 F 07/28/23 17:24 Pulse Rate 97 07/28/23 22:17 Respiratory Rate 17 07/28/23 22:17 Blood Pressure 126/89 07/28/23 22:31 Pulse Oximetry 97 07/28/23 22:17 Oxygen Delivery Room Air 07/28/23 17:24 MDM - Chest Pain MDM Narrative Med
[2023-07-28 19:55] LABS: Appearance Urine Clear (Clear); Bilirubin Urine Negative (Negative); Blood Urine Negative (Negative); Color Urine Yellow (Yellow); Glucose Urine UA Negative (Negative); Ketones Urine Negative (Negative); Leukocyte Esterase Ur Negative LEU/UL (Negative); Nitrate Urine Negative (Negative); Protein Urine Negative (Negative); Specific Grav Ur 1.005 (1.001-1.035); Urobilinogen Urine 0.2 mg/dL (<2.0)
[2023-07-28] MEDS: ASPIRIN 81 MG CHEWABLE TABLET 324 MG PO (19:58)
[2023-07-28] MEDS: MORPHINE SULFATE (*CRX) 4 MG/ML INJ IV PUSH (19:58)
[2023-07-28] MEDS: SODIUM CHLORIDE 0.9% IV 1,000 ML 999 ML IV CONT ×2 (19:58)
[2023-07-28] MEDS: FAMOTIDINE 20 MG/2 ML VIAL IV PUSH (19:58)
[2023-07-28 20:02] LABS: Add Urine Microscopic? NO
[2023-07-28] MEDS: ALBUTEROL SULFATE NEB 2.5 MG/3 ML INH 5 MG INHALATION (20:06)
[2023-07-28] MEDS: IPRATROPIUM BR 0.02% INH SOLN 0.5 MG/2.5 ML VIAL INHALATION (20:06)
[2023-07-28] MEDS: LORazepam INJ (*CRX) 2 MG/ML VIAL 1 MG IV PUSH (20:54)
[2023-07-28 21:03] LABS: Troponin I < 0.012 ng/mL (0.000-0.034)
== END 2023-07-28 22:41 | disposition home or self-care (01) ==
PROVIDERS: Emergency Provider Emergency Medicine; PCP Internal Medicine
DX: R07.89 Other chest pain (principal); F10.10 Alcohol abuse, uncomplicated; R10.9 Unspecified abdominal pain; J44.9 Chronic obstructive pulmonary disease, unspecified; I10 Essential (primary) hypertension; E78.5 Hyperlipidemia, unspecified; G47.33 Obstructive sleep apnea (adult) (pediatric); F17.210 Nicotine dependence, cigarettes, uncomplicated
CPT/HCPCS: 36415; 71046; 80053; 81003; 83690; 84484; 85025; 85610; 85730; 93005; 94640; 96361; 96374; 96375; 99284; A9270; J2060; J2270; J7030

== ENCOUNTER 2023-08-16 13:58 | Observation (INO) | payer SELFPAY ==
[2023-08-16] VITALS (21 sets, daily range): BP systolic 90–113; BP diastolic 50–84; PULSE 84–118; RESP 14–28; TEMP 36.1–36.8; O2SAT 97–99; BMI 27.0
--- NOTE | ~2023-08-16 | US_ITS ---
EXAMINATION: US carotid duplex BI DATE: 08/17/2023 09:23 INDICATION: Syncope TECHNIQUE: Grayscale, color Doppler, and pulsed Doppler images of the cervical carotid arteries were obtained. The degree of vessel stenosis is placed in one of the following categories: normal, <50%, 5 0-69%, >=70% but less than near-occlusion, near-occlusion, or total occlusion. Note that percent sten osis relative to normal distal artery lumen diameter is indirectly measured from velocity measurement s as described by Gregory, et al. Radiology 2003; 229:340-346. COMPARISON: 04/19/2022 carotid duplex examination FINDINGS: RIGHT: The right common carotid artery (CCA) peak systolic velocity (PSV) is 61.7 cm/s. The right internal c arotid artery (ICA) PSV is 41.0 cm/s. The right ICA end-diastolic velocity (EDV) is 15.9 cm/s. The ri ght ICA/CCA PSV ratio is 0.7. Grayscale and color Doppler images yield an estimate of less than 50% d iameter reduction from plaque in the ICA. The external carotid artery (ECA) PSV is 90.9 cm/s. There i s antegrade flow in the right vertebral artery. LEFT: The left CCA PSV is 59.4 cm/s. The left ICA PSV is 56.8 cm/s. The left ICA EDV is 19.2 cm/s. The left ICA/CCA PSV ratio is 1.0. Grayscale and color Doppler images yield an estimate of less than 50% diam eter reduction from plaque in the ICA. The ECA PSV is 51.4 cm/s. There is antegrade flow in the left vertebral artery. IMPRESSION: 1. Less than 50% stenosis in the right internal carotid artery. 2. Less than 50% stenosis in the left internal carotid artery. Reviewed, dictated and finalized at [facility]. Reviewed, dictated and finalized at location [facility].
--- NOTE | ~2023-08-16 | XR_ITS ---
EXAMINATION: XR chest 1V portable INDICATION: Shortness of breath and weakness TECHNIQUE: Portable AP chest at 1430 hours COMPARISON: 07/28/2023 FINDINGS: Chronic scarring is again noted at the left costophrenic angle. The lungs are free of acute opacities. No pleural effusion or pneumothorax. The cardiomediastinal silhouette is normal. IMPRESSION: 1. No acute cardiopulmonary abnormality. Reviewed, dictated and finalized at location A.
--- NOTE | ~2023-08-16 | CT_ITS ---
EXAMINATION: CTA chest abdomen pelvis DATE: 08/16/2023 14:59 INDICATION: Chest and back pain. Shortness of breath. TECHNIQUE: Computed tomographic angiography (CTA) of the chest, abdomen, and pelvis was performed wit h 100 mL Omnipaque-350 intravenous contrast. Automated exposure control and iterative reconstruction technique were employed. The dose-length product was 1185.84 mGy-cm. Maximum intensity projection 3D- reconstructions of the aorta and other arteries were constructed by the technologist on a separate wo rkstation. COMPARISON: Chest CT 05/18/2019 FINDINGS: CHEST CTA: There is mild emphysema. There is mild atelectasis bilaterally. There is chronic pleural thickening w ith pleural calcifications on the left. No pleural effusion. The heart size is normal. There are danny nary artery calcifications. No pericardial effusion. There is ectasia of ascending aorta measuring 4. 0 cm. There is mild aortic atherosclerosis. There is no pulmonary embolus. There is a chronic burst f racture of T6. There is mild chronic wedging of multiple vertebral bodies. ABDOMEN AND PELVIS CTA: There is diffuse hepatic steatosis. There are gallstones in the gallbladder, which is normal in size. There is a small sliding hiatal hernia. The spleen, pancreas, and adrenal glands are normal. There i s mild atrophy of the kidneys. There is mild aortic atherosclerosis. There are bilateral inguinal her nias containing fat. The prostate is mildly enlarged. There is diverticulosis of the colon without ev idence of diverticulitis. The appendix is normal. There are no pathologically enlarged lymph nodes. T here is no free intraperitoneal fluid. There is mild lumbar spondylosis. IMPRESSION: 1. Ectasia of ascending aorta measuring 4.0 cm. 2. Mild emphysema. 3. Small sliding hiatal hernia. Reviewed, dictated and finalized at location E.
--- NOTE | ~2023-08-16 | CT_ITS ---
EXAMINATION: CT brain wo con DATE: 08/16/2023 14:57 INDICATION: Unresponsive. TECHNIQUE: Computed tomography (CT) of the head was performed without intravenous contrast. Sagittal and coronal reconstructions were performed. The mA was adjusted according to patient size. Iterative reconstruction technique was employed. The dose-length product was 681.00 mGy-cm. COMPARISON: head CT dated 04/19/2022 FINDINGS: No acute intracranial hemorrhage, acute infarction or abnormal extra axial fluid collection. There is mild scattered white matter hypoattenuation consistent with chronic small vessel ischemic disease. V entricles are normal and symmetric. No mass/mass effect. Small right mastoid effusion. The orbits are normal. Mild mucosal thickening in the anterior left ethmoid sinus. IMPRESSION: 1. Stable appearance of mild nonstenotic cerebral white matter hypoattenuation consistent with chroni c small vessel ischemic disease. No acute intracranial process. Reviewed, dictated and finalized at location A. IMPRESSION: 1. Stable appearance of mild nonstenotic cerebral white matter hypoattenuation consistent with chronic small vessel ischemic disease. No acute intracranial pr ocess.
--- NOTE | 2023-08-16 13:59 | ECG_ITS ---
Measurements Intervals [place] Rate: 116 P: 68 TN: 145 QRS: 49 QRSD: 82 T: 64 QT: 334 QTc: 465 Interpretive Statements SINUS TACHYCARDIA MINIMAL ST DEPRESSION [0.025+ mV ST DEPRESSION] ABNORMAL RHYTHM ECG COMPARED TO ECG 07/28/2023 17:35:26 NO SIGNIFICANT CHANGES Electronically Signed On 08-16-2023 14:36:55 CDT by Elisha Hayden M.D.
[2023-08-16 14:19] LABS: Basophils Percent Auto 0.4 % (0.2-1.2); Eosinophils Percent Auto 0.1 % (0-4.4); Hematocrit 44.1 % (42.0-52.0); Hemoglobin 15.8 g/dL (14.0-18.0); Immature Granulocyte Absolute 0.04 K/mm3 (0.00-0.031); Immature Granulocyte Percent A 0.5 % (0-0.5); Lymphocytes Absolute Auto 3.03 K/mm3 (0.9-3.2); Mean Corpuscular HGB Conc 35.8 g/dl (32-36); Mean Corpuscular Hemoglobin 36.1 pg (26-34); Mean Corpuscular Volume 100.7 fl (80-100); Mean Platelet Volume 10.2 fl (7.4-10.4); Monocytes Absolute Auto 0.7 K/mm3 (0.1-0.6); Monocytes Percent Auto 9.5 % (2.6-8.5); Neutrophils Absolute Auto 3.9 K/mm3 (1.3-6.7); Neutrophils Percent Auto 50.5 % (45.5-73.1); Platelet Count Result 177 k/mm3 (150-375); Red Blood Count 4.38 M/mm3 (4.6-6.20); Red Cell Distribution Width 11.7 % (11.5-14.5); White Blood Count 7.8 K/mm3 (4.5-10.0)
--- NOTE | 2023-08-16 14:19 | ED.CHESTPAIN ---
HPI - Chest Pain General Chief Complaint: Chest Pain Stated Complaint: cp Time Seen by Provider: 08/16/23 14:04 Source: patient, RN notes reviewed and old records reviewed Mode of arrival: ambulatory Limitations: no limitations History of Present Illness HPI narrative: This is a 63 year old male with history of alcohol abuse, smoking, cOPD who presents for evaluation of weakness and chest pain. PAtient states he has been laying in bed for 4 days due to weakness. He reports diffuse abdominal pain, back pain, nausea, vomiting and diarrhea for 4 days. He states 2 days ago he was weak and this caused him to fall . He reports he was stuck in between bed and wall for 2 hours. He thinks he passed out. He reports he developed pain across his lower chest around noon today. Related Data Home Medications Medication Instructions Recorded Confirmed furosemide 40 mg tablet 40 mg PO DAILY PRN Edema 06/13/20 08/16/23 lisinopril 20 mg tablet 20 mg PO DAILY 06/13/20 08/16/23 buspirone 15 mg tablet 15 mg PO BID 08/16/23 08/16/23 Allergies Allergy/AdvReac Type Severity Reaction Status Date / Time No Known Allergies Allergy Verified 08/16/23 14:39 Review of Systems Constitutional: Constitutional: Reports weakness Cardiovascular: Cardiovascular: Reports chest pain, Reports syncope, Denies rapid heart rate, Denies irregular heart rhythm, Denies leg edema and Reports dyspnea Respiratory: Respiratory: Denies chest congestion, Denies hemoptysis, Denies excessive phlegm production and Reports dyspnea Gastrointestinal: Gastrointestinal: Reports abdominal pain, Denies hematochezia, Reports diarrhea, Reports nausea and Reports vomiting Genitourinary: Genitourinary: Denies hematuria, Denies dysuria, Denies penile discharge and Denies testicular pain Musculoskeletal: Musculoskeletal: Reports back pain, Denies joint swelling, Denies loss of height and Denies muscle weakness Neurologic: Denies syncope, Denies focal weakness and Reports weakness PMFSH Past Medical History Medical History (Updated 08/17/23 @ 08:15 by Asia Garcia MD) Alcohol abuse COPD (chronic obstructive pulmonary disease) H/O opioid abuse Hyperlipidemia Hypertension Nicotine dependence MICHELL (obstructive sleep apnea) Surgical History Surgical History H/O knee surgery H/O shoulder surgery Family History Family History Father Diverticulitis Father from complications Social History Social History Social History: patient drinks 8-9 alcohol drinks per day. He smokes a pack a day for past 50 years. History of opioid use in the past. Positive drug screen this admission. Lives at home with his signif other. He is a full code. He nominates his significant other to be the individual would make medical decisions for him if he is unable Smoking packs per day: 2 Smoking cigarettes per day: 40.0 Years smoked: 40 Smoking pack-years: 80.00 Smoking status: Current every day smoker Alcohol intake: current Drinks per week: 70 Alcohol use details: PER EMR- PATIENT HAS HISTORY OF ALCOHOL ABUSE- 12-16 DRINKS/DAY Substance use: never Substance use type: former substance user Lack of Transportation: No Lack of Food: Never True Current Housing: I Have Housing Concerned About Future Housing: No Difficulty Paying Gas/Electric Bills: No Difficulty Paying for Meds: No Currently Unemployed: No Education: Trade/Vocational Certificate Difficulty w/ Childcare or Family Care: No Spiritual care concerns: No Exam Const: General: alert and ill appearing Orientation/consciousness: patient oriented x3 HENMT: Head: normal to inspection Mouth: Yes Normal oral and palatal mucosa present, Yes lip normal and Yes moist mucous membranes Throat: posterior oropharynx lani
[2023-08-16] MEDS: SODIUM CHLORIDE 0.9% IV 1,000 ML 999 ML IV CONT ×3 (14:23→15:50)
[2023-08-16] MEDS: ONDANSETRON INJ 4 MG/2 ML VIAL IV PUSH ×2 (14:24→16:35)
[2023-08-16 14:26] LABS: Alanine Aminotransferase 80 U/L (6-50); Albumin Level 3.8 g/dL (3.5-5.1); Alkaline Phosphatase 147 U/L (38-126); Anion Gap 14 mmol/L (8-16); Aspartate Amino Transferase 161 U/L (17-59); Bilirubin,Total 1.1 mg/dL (0.2-1.3); Blood Urea Nitrogen 3 mg/dL (9-20); Calcium 8.6 mg/dL (8.4-10.2); Carbon Dioxide 20 mmol/L (22-30); Chloride 91 mmol/L (98-107); Estimated CRCL calculation 100 ml/min; Estimated Glomerular Filt Rate > 60; Glucose 121 mg/dL (65-110); Lipase 90 U/L (23-300); Potassium 3.8 mmol/L (3.4-5.0); Sodium 125 mmol/L (137-145)
[2023-08-16 14:29] LABS: Partial Thromboplastin Time 34.4 SECONDS (22.3-36.8)
[2023-08-16 14:33] LABS: Glucose Point of Care 111 mg/dl (65-105)
[2023-08-16 14:38] LABS: Troponin I 0.012 ng/mL (0.000-0.034)
--- NOTE | 2023-08-16 14:41 | PC.NURSE ---
Pt to CT via stretcher at this time on monitor
[2023-08-16 14:53] LABS: Lactic Acid Reflex 4.6 mmol/L (0.7-2.0)
[2023-08-16 14:59] LABS: NT Pro B Type Natriuretic Pept 260 pg/mL (19.9-100)
[2023-08-16 16:05] LABS: Appearance Urine Clear (Clear); Bilirubin Urine Negative (Negative); Blood Urine Negative (Negative); Color Urine Yellow (Yellow); Glucose Urine UA Negative (Negative); Ketones Urine Negative (Negative); Leukocyte Esterase Ur Negative LEU/UL (Negative); Nitrate Urine Negative (Negative); Protein Urine Negative (Negative); Specific Grav Ur 1.027 (1.001-1.035); Urobilinogen Urine 0.2 mg/dL (<2.0); pH Urine 7.5 (5.0-9.0)
[2023-08-16 16:23] LABS: Add Urine Microscopic? NO
[2023-08-16] MEDS: MORPHINE SULFATE (*CRX) 2 MG/ML INJ IV PUSH (16:35)
[2023-08-16 17:31] LABS: Troponin I < 0.012 ng/mL (0.000-0.034)
[2023-08-16 17:31] LABS: Reflex Lactic Acid Yes or No Add Lactic
--- NOTE | 2023-08-16 18:10 | ADMGEN ---
This patient, Baljit Green, was admitted to IMU Room 211-01. Patient/family oriented to hospital policies and general routines including ID bracelet, bed and alarms, visiting hours, pain management, procedures, bathroom and other care routines, personal items, smoking policy, room service/diet, and visiting hours. Information on how to activate the Rapid Response Team has been discussed. Patient/Family are encouraged to report perceived risks to care and to ask questions if they do not understand what they are told or what they should do.
[2023-08-16] MEDS: SODIUM CHLORIDE 0.9% IV 1,000 ML 150 ML IV CONT (18:12)
[2023-08-16 18:15] LABS: Lactic Acid 2.5 mmol/L (0.7-2.0)
--- NOTE | 2023-08-16 18:44 | PM.IMHP ---
H&P: HPI History of Present Illness Date/Time: 08/16/23 18:30 Chief Complaint: Multiple complaints. Narrative: This is a 63-year-old male smoker with longstanding history of alcohol abuse who presented to the emergency department via private vehicle from home for evaluation of multiple complaints. The patient provides the following history. His Jennifer provides additional information, with the patient's permission. He is retired and he admits that he does not do much and his tells me that he just ?lays around all day.? He has apparently been in bed for the last 4 days due to weakness and any time he tries to get up he feels weak and lightheaded and he has had several falls recently. Today he got a bit to try to turn the light on when he fell onto the ground between the bed and the wall and was unable to get himself up. He remained there for couple of hours before his found him. He thinks he may have lost consciousness but cannot say for sure. He complained of some nondescript chest and abdominal pain in the ED however is not having discomfort at the time my evaluation. He also reports poor oral intake and admits that most of his calories come in the form of alcohol. He gets hungry however feels nauseated a time he eats and he frequently vomits thereafter. He has had diarrhea and occasionally notices small amounts of bright red blood in his underwear. He denies fever, chills, sweats vertigo, focal weakness, paresthesias sinus congestion, sore throat, cough sensations of racing heart resting shortness of breath, melena, hematochezia, hematemesis, and dysuria. Last beer was about 10:00. He does have some mild anxiety and tremors at this time. He denies history of alcohol withdrawal seizures. In the ED: He was afebrile on arrival. Blood pressures have been soft at the low end of normal. Heart rate has been anywhere between the 90s to low 100s, sinus tachycardia. Labs were significant for a WBC count of 7.8, hemoglobin 15.8, MCV 100.7, platelets 177, INR 1.0, sodium 125, potassium 3.8, chloride 91, carbon dioxide 20, BUN 3, creatinine 0.60, lactic acid 4.6, AST 161, ALT 80, alk phosphatase 147, total bilirubin 1.1, troponin 0.012, proBNP 260. Urine was unremarkable. Brain CT showed no acute findings. CT of the chest, abdomen, and pelvis showed diffuse hepatic steatosis, ectasia of the ascending aorta measuring 4.0 cm, mild emphysema, and small sliding hiatal hernia. EKG did not show any acute ST segment changes or changes compared to prior tracings. While in the emergency department he had a near syncopal or syncopal episode. ED physician found him bradycardic, diaphoretic, and pale. He was hypotensive and responded to IV fluids. He is being admitted in this setting for close monitoring. Review of Systems Review of Systems: Twelve systems were reviewed and are negative except for as per HPI. [facility] Past Medical History Medical History (Updated 08/18/23 @ 14:17 by Lana Figueroa PA-C) Alcohol abuse Chronic obstructive pulmonary disease Hyperlipidemia Hypertension Nicotine dependence Obstructive sleep apnea Surgical History Surgical History (Updated 08/18/23 @ 14:17 by Lana Figueroa PA-C) History of orthopedic surgery Bilateral shoulder arthroscopy. Bilateral knee arthroscopy. Wrist surgery. Family History Family History Father Diverticulitis Father from complications Social History Social History (Updated 08/18/23 @ 14:18 by Lana Figueroa PA-C) Social History: Surrogate medical decision maker: Jennifer Jj, spouse. Code status: Full code. Smoking packs per day: 2 Smoking cigarettes per day: 40.0 Years smoked: 40 Smoking pack-years: 80.00 Smoking status: Current every day smoker Alcohol intake: current Drinks per week: 70 Alcohol use details: Drinks at least 10 to 12 beers a day. Substance use: never Substan
[2023-08-16 20:13] LABS: Troponin I < 0.012 ng/mL (0.000-0.034)
[2023-08-16 20:37] LABS: Glucose Point of Care 129 mg/dl (65-105)
[2023-08-16] MEDS: LORazepam INJ (*CRX) 2 MG/ML VIAL 1 MG IV PUSH (20:38)
[2023-08-17] VITALS (15 sets, daily range): BP systolic 102–151; BP diastolic 70–104; PULSE 75–98; RESP 16–20; TEMP 36.2–36.7; O2SAT 95–100
[2023-08-17] MEDS: busPIRone HCL 5 MG TABLET 15 MG PO ×3 (00:17→17:34)
[2023-08-17] MEDS: chlordiazePOXIDE (*CRX) 25 MG CAPSULE PO ×4 (00:17→17:34)
[2023-08-17] MEDS: THIAMINE HCL 200 MG/2 ML VIAL 100 MG IV PUSH (00:19)
[2023-08-17 00:27] LABS: Anion Gap 1 mmol/L (8-16); Blood Urea Nitrogen 3 mg/dL (9-20); Calcium 7.7 mg/dL (8.4-10.2); Carbon Dioxide 26 mmol/L (22-30); Chloride 101 mmol/L (98-107); Estimated CRCL calculation 114 ml/min; Estimated Glomerular Filt Rate > 60; Glucose 103 mg/dL (65-110); Magnesium 1.7 mg/dL (1.6-2.3); Potassium 3.5 mmol/L (3.4-5.0); Sodium 128 mmol/L (137-145)
--- NOTE | 2023-08-17 01:25 | ECHO_ITS ---
Patient Info Name: Baljit Green Age: 63 years : 1960 Gender: Male Ht: 65 in Wt: 167 lbs BSA: 1.88 m2 HR: 76 bpm BP: 102 / 78 mmHg Heart Rhythm: Sinus Rhythm Technical Quality: Good Exam Date: 08/17/2023 10:18 AM Exam Location: [facility] Pulmonary Patient Status: Outpatient Admit Date: 08/16/2023 Staff Ordering Physician: Lana Figueroa PA-C Kitchen Bath Designer: Molly Ortega RDCS Attending Provider: Karen Mosley DO Referring Physician: Henry LEBLANC; Exam Type: CA echo doppler color flow Study Info Complete two-dimensional, color flow and Doppler transthoracic echocardiogram is performed. Summary 1. Complete two-dimensional, color flow and Doppler transthoracic echocardiogram is performed. 2. Left ventricular chamber dimension is normal. 3. Left ventricular systolic function is normal, estimated at 65-70%. 4. There is moderately increased left ventricular wall thickness with more severe basal septal hypertrophy. 5. The left ventricular diastolic function is grade I diastolic dysfunction. 6. The aortic root size at the sinus of Valsalva is borderline dilated. Left Ventricle Left ventricular chamber dimension is normal. Left ventricular systolic function is normal, estimated at 65-70%. There is moderately increased left ventricular wall thickness with more severe basal septal hypertrophy. The left ventricular diastolic function is grade I diastolic dysfunction. Right Ventricle Right ventricular chamber dimension is normal. Right ventricular systolic function is normal. Left Atria Left atrial chamber dimension is normal. Right Atria Right atrial chamber dimension is normal. Atrial Septum Intact interatrial septum visualized by color flow imaging. Aortic Valve The aortic valve is trileaflet. There is mild aortic valve sclerosis. There is no aortic valve stenosis. There is trace aortic valve regurgitation. Pulmonic Valve The pulmonic valve is normal. There is no pulmonic valve stenosis. There is trace pulmonic regurgitation. Mitral Valve The mitral valve has normal leaflets. There is no mitral valve stenosis. There is trace mitral valve regurgitation. Tricuspid Valve The tricuspid valve leaflets are normal. There is no significant tricuspid valve stenosis. There is trace tricuspid valve regurgitation. No pulmonary hypertension, estimated pulmonary arterial systolic pressure is 12 mmHg. Pericardium/Pleural The pericardium appears normal. There is no pericardial effusion. Inferior Vena Cava Normal inferior vena cava with >50% collapse upon inspiration consistent with normal right atrial pressure, 8 mmHg. Aorta The aortic root size at the sinus of Valsalva is borderline dilated. Left Ventricular Outflow Tract Name Value Normal LVOT 2D LVOT Diameter 2.3 cm LVOT Doppler LVOT Peak Gradient 4 mmHg LVOT Mean Gradient 2 mmHg LVOT VTI 26 cm LVOT VTI/AV VTI Ratio 0.8 LVOT Stroke Volume 110 ml LVOT CO 6.6 l/min LVOT CI 3.5 l/min/m2 Pulmonic Valve
[2023-08-17 05:10] LABS: Basophils Percent Auto 0.6 % (0.2-1.2); Eosinophils Percent Auto 0.2 % (0-4.4); Hematocrit 36.2 % (42.0-52.0); Hemoglobin 12.6 g/dL (14.0-18.0); Immature Granulocyte Absolute 0.01 K/mm3 (0.00-0.031); Immature Granulocyte Percent A 0.2 % (0-0.5); Lymphocytes Absolute Auto 2.04 K/mm3 (0.9-3.2); Lymphocytes Percent Auto 42.9 % (18.3-44.2); Mean Corpuscular HGB Conc 34.8 g/dl (32-36); Mean Corpuscular Hemoglobin 36.4 pg (26-34); Mean Corpuscular Volume 104.6 fl (80-100); Mean Platelet Volume 10.3 fl (7.4-10.4); Monocytes Absolute Auto 0.5 K/mm3 (0.1-0.6); Monocytes Percent Auto 10.1 % (2.6-8.5); Neutrophils Absolute Auto 2.2 K/mm3 (1.3-6.7); Platelet Count Result 144 k/mm3 (150-375); Red Blood Count 3.46 M/mm3 (4.6-6.20); White Blood Count 4.8 K/mm3 (4.5-10.0)
[2023-08-17 05:27] LABS: Alanine Aminotransferase 57 U/L (6-50); Albumin Level 2.8 g/dL (3.5-5.1); Alkaline Phosphatase 110 U/L (38-126); Anion Gap 3 mmol/L (8-16); Aspartate Amino Transferase 107 U/L (17-59); Bilirubin,Total 1.5 mg/dL (0.2-1.3); Blood Urea Nitrogen 3 mg/dL (9-20); Calcium 8.3 mg/dL (8.4-10.2); Carbon Dioxide 26 mmol/L (22-30); Chloride 101 mmol/L (98-107); Estimated CRCL calculation 114 ml/min; Estimated Glomerular Filt Rate > 60; Glucose 93 mg/dL (65-110); Lactic Acid Reflex 0.8 mmol/L (0.7-2.0); Magnesium 1.9 mg/dL (1.6-2.3); Potassium 3.5 mmol/L (3.4-5.0); Sodium 130 mmol/L (137-145)
[2023-08-17 09:10] LABS: Glucose Point of Care 93 mg/dl (65-105)
[2023-08-17] MEDS: NICOTINE (*PBKC) 21 MG PATCH 1 PATCH TRANSDERM (10:28)
[2023-08-17] MEDS: PANTOPRAZOLE SODIUM IV 40 MG VIAL IV PUSH (10:30)
[2023-08-17] MEDS: THIAMINE HCL 100 MG TABLET PO (10:30)
[2023-08-17] MEDS: FOLIC ACID 1 MG TABLET PO (10:30)
--- NOTE | 2023-08-17 12:35 | PM.IMPN ---
Progress Note: A&P Assessment and Plan (1) Syncope: Code(s): R55 - Syncope and collapse Status: Acute (2) Hyponatremia: Code(s): E87.1 - Hypo-osmolality and hyponatremia Status: Acute (3) Alcoholic hepatitis: Code(s): K70.10 - Alcoholic hepatitis without ascites Status: Acute (4) Lactic acidosis: Code(s): E87.20 - Acidosis, unspecified Status: Acute (5) Alcohol abuse: Code(s): F10.10 - Alcohol abuse, uncomplicated Status: Acute (6) Nicotine dependence: Code(s): F17.200 - Nicotine dependence, unspecified, uncomplicated Status: Acute Plan The patient presented to the emergency department for evaluation of multiple complaints including chest and abdominal pain (not currently having issues at this time my evaluation), fall, and syncope/near-syncope as detailed in HPI. Labs, imaging, EKG, and all reports were personally reviewed. Syncope is most likely related to either orthostatic hypotension or vasovagal response. He will be monitored on telemetry to rule out cardiac dysrhythmia. Echocardiogram has been ordered and is pending. Monitor orthostatic vital signs. Initiate fall precautions. Sodium was 125 but has improved to 128 with IV fluids. Likely due to a combination of dehydration and low solute intake as he drinks a majority of his calories. Lactic acid was 4.6 on arrival but has almost normalized with fluids. He does not appear toxic and sepsis and infection seem less likely by history. It is likely that the lactic acid level as elevated in the setting of episodes of hypotension and probably poor hepatic clearance given alcoholic hepatitis. Blood cultures have been ordered. Repeat lactic acid in a.m.. No indication for antibiotics at this time. Initiate CIWA protocol. He has been started on scheduled Librium. Nicotine patch available if needed. His home medications will be reviewed and resumed as appropriate. Subjective Date/time seen: 08/17/23 12:35 Interval history: No new complaints. Exam Const: Other: Chronically ill-appearing gentleman in the semi-Wiley position in bed. Weight: 76 kg. BMI: 27.0. HENMT: Other: Normocephalic, atraumatic. Nares patent. Tacky mucous membranes. Crowded oropharynx. Eyes: Other: Pupils are reactive. Extraocular motions intact. Sclerae anicteric. Conjunctiva moderately injected. Neck: Other: Supple. No JVD. No cervical spine tenderness. Chest: Other: No tenderness to palpation over the chest wall. Resp: Other: Respirations are nonlabored. Lung sounds are a bit diminished but are otherwise clear to auscultation. Cardio: Other: Tachycardic with normal S1-S2. Monitor shows sinus tachycardia. GI: Other: Abdomen is soft, protuberant, and nontender with positive bowel sounds. No CVA tenderness. Skin: Other: Warm and dry. Scattered bruising on the upper extremities. Neuro: Other: Alert and oriented x4. Cranial nerves 2-12 are grossly intact. Faint tremors of the hands. Generalized weakness without focal deficits. Psych: Other: Cooperative. Appropriate mood and flat affect. Objective Data Vital Signs Vital Signs: Vital Signs - 24 hr 08/16/23 14:05 08/16/23 14:39 08/16/23 14:44 Temperature 97.5 F L Pulse Rate 118 H 89 95 Pulse Rate [Monitor] Respiratory Rate 15 19 17 Blood Pressure 100/70 96/84 L 103/81 Pulse Oximetry 99 99 97 Oxygen Delivery Room Air 08/16/23 15:23 08/16/23 14:11 08/16/23 14:15 Temperature Pulse Rate 96 112 H 110 H Pulse Rate [Monitor] Respiratory Rate 17 24 H 28 H Blood Pressure 111/83 Pulse Oximetry 98 98 98 Oxygen Delivery 08/16/23 14:35 08/16/23 14:39 08/16/23 14:55 Temperature Pulse Rate 94 93 87 Pulse Rate [Monitor] Respiratory Rate 23 H 14 24 H Blood Pressure 96/84 L Pulse Oximetry 97 Oxygen Delivery 08/16/23 15:51 08/16/23 16:00 08/16/23 16:0
--- NOTE | 2023-08-17 14:44 | PCPTNOTE ---
Attempted PT evaluation. Pt transferring rooms at this time. Will follow.
[2023-08-17] MEDS: IBUPROFEN 400 MG TABLET PO (17:34)
[2023-08-17] MEDS: ONDANSETRON INJ 4 MG/2 ML VIAL IV PUSH (18:31)
[2023-08-17 21:03] LABS: Glucose Point of Care 102 mg/dl (65-105)
[2023-08-18] MEDS: chlordiazePOXIDE (*CRX) 25 MG CAPSULE PO ×3 (00:41→11:34)
[2023-08-18] MEDS: IBUPROFEN 400 MG TABLET PO (04:23)
[2023-08-18 06:00] VITALS: BP 142/85; PULSE 83; RESP 16; TEMP 36.4; O2SAT 98
[2023-08-18 07:00] LABS: Basophils Percent Auto 0.5 % (0.2-1.2); Eosinophils Percent Auto 0.2 % (0-4.4); Hematocrit 37.1 % (42.0-52.0); Hemoglobin 12.7 g/dL (14.0-18.0); Immature Platelet Fraction Pct 4.8 % (0.9-11.2); Lymphocytes Absolute Auto 1.87 K/mm3 (0.9-3.2); Lymphocytes Percent Auto 46.1 % (18.3-44.2); Mean Corpuscular HGB Conc 34.2 g/dl (32-36); Mean Corpuscular Hemoglobin 35.9 pg (26-34); Mean Corpuscular Volume 104.8 fl (80-100); Mean Platelet Volume 10.9 fl (7.4-10.4); Monocytes Absolute Auto 0.4 K/mm3 (0.1-0.6); Monocytes Percent Auto 10.8 % (2.6-8.5); Neutrophils Absolute Auto 1.7 K/mm3 (1.3-6.7); Neutrophils Percent Auto 42.4 % (45.5-73.1); Platelet Count Result 119 k/mm3 (150-375); Red Blood Count 3.54 M/mm3 (4.6-6.20); Red Cell Distribution Width 11.5 % (11.5-14.5); White Blood Count 4.1 K/mm3 (4.5-10.0)
[2023-08-18 07:12] LABS: Anion Gap 3 mmol/L (8-16); Blood Urea Nitrogen 3 mg/dL (9-20); Calcium 8.4 mg/dL (8.4-10.2); Carbon Dioxide 27 mmol/L (22-30); Chloride 102 mmol/L (98-107); Estimated CRCL calculation 114 ml/min; Estimated Glomerular Filt Rate > 60; Glucose 96 mg/dL (65-110); Potassium 3.4 mmol/L (3.4-5.0); Sodium 132 mmol/L (137-145)
[2023-08-18] MEDS: NICOTINE (*PBKC) 21 MG PATCH 1 PATCH TRANSDERM (10:30)
[2023-08-18] MEDS: FOLIC ACID 1 MG TABLET PO (10:31)
[2023-08-18] MEDS: THIAMINE HCL 100 MG TABLET PO (10:31)
[2023-08-18] MEDS: PANTOPRAZOLE SODIUM IV 40 MG VIAL IV PUSH (10:31)
[2023-08-18] MEDS: busPIRone HCL 5 MG TABLET 15 MG PO (10:31)
--- NOTE | 2023-08-18 10:40 | PM.DS ---
DS: Admitting Diagnosis Discharge Date August 18, 2023 Admitting Diagnosis Syncope DS: Discharge Diagnosis Discharge Diagnosis (1) Syncope: Code(s): R55 - Syncope and collapse Status: Acute (2) Hyponatremia: Code(s): E87.1 - Hypo-osmolality and hyponatremia Status: Acute (3) Alcoholic hepatitis: Code(s): K70.10 - Alcoholic hepatitis without ascites Status: Acute (4) Lactic acidosis: Code(s): E87.20 - Acidosis, unspecified Status: Acute (5) Alcohol abuse: Code(s): F10.10 - Alcohol abuse, uncomplicated Status: Acute (6) Nicotine dependence: Code(s): F17.200 - Nicotine dependence, unspecified, uncomplicated Status: Acute DS: Summary Hospital Course Hospital Course: 63-year-old history of chronic alcohol abuse and came in with diagnosis of syncope. Likely vasovagal. Workup was unrevealing. Patient can be discharged home. Time Spent with Patient Time attestation: Total time spent providing and/or coordinating discharge services: Exam Const: Other: Chronically ill-appearing gentleman in the semi-Wiley position in bed. Weight: 76 kg. BMI: 27.0. HENMT: Other: Normocephalic, atraumatic. Nares patent. Tacky mucous membranes. Crowded oropharynx. Eyes: Other: Pupils are reactive. Extraocular motions intact. Sclerae anicteric. Conjunctiva moderately injected. Neck: Other: Supple. No JVD. No cervical spine tenderness. Chest: Other: No tenderness to palpation over the chest wall. Resp: Other: Respirations are nonlabored. Lung sounds are a bit diminished but are otherwise clear to auscultation. Cardio: Other: Tachycardic with normal S1-S2. Monitor shows sinus tachycardia. GI: Other: Abdomen is soft, protuberant, and nontender with positive bowel sounds. No CVA tenderness. Skin: Other: Warm and dry. Scattered bruising on the upper extremities. Neuro: Other: Alert and oriented x4. Cranial nerves 2-12 are grossly intact. Faint tremors of the hands. Generalized weakness without focal deficits. Psych: Other: Cooperative. Appropriate mood and flat affect. DS: Data Data Completed and Pending Labs on day of discharge: Labs from last 24 hours 08/18/23 08/17/23 06:27 20:23 WBC 4.1 L RBC 3.54 L Hgb 12.7 L Hct 37.1 L MCV 104.8 H MCH 35.9 H MCHC 34.2 RDW 11.5 Plt Count 119 L MPV 10.9 H Immature Gran % (Auto) 0.0 Neut % (Auto) 42.4 L Lymph % (Auto) 46.1 H [place] % (Auto) 10.8 H Eos % (Auto) 0.2 Baso % (Auto) 0.5 Lymph # (Auto) 1.87 [place] # (Auto) 0.4 Eos # (Auto) 0.0 Baso # (Auto) 0.0 Abs Immat Gran (auto) 0.00 Absolute Neuts (auto) 1.7 Absolute Nucleated RBC 0.0 Nucleated RBC % 0.0 % Immature Plt Fraction 4.8 Sodium 132 L Potassium 3.4 Chloride 102 Carbon Dioxide 27 Anion Gap 3 L BUN 3 L Creatinine 0.50 L Estim Creat Clear Calc 114 Estimated GFR > 60 Glucose 96 POC Capillary Glucose 102 Calcium 8.4 Preliminary micro results at discharge 08/17/23 05:02 Blood Culture - Preliminary Blood 08/17/23 05:02 Blood Culture - Preliminary Blood Discharge Plan Discharge Attending physician on discharge: Kingsley Reilly Discharging Clinician: Kingsley Reilly Patient Disposition: Home, Self-Care Activity: as tolerated Diet: as tolerated Patient Instructions: Antibiotic Form, How to Stop Smoking (DC) Stand Alone Forms: General Discharge Information Follow-up/Referrals: Jonathan,Kam Handy MD [Primary Care Provider] - Discharge Medications: Continued furosemide 40 mg tablet 40 mg PO DAILY PRN (Reason: Edema) lisinopril 20 mg tablet 20 mg PO DAILY thiamine HCl (vitamin B1) 100 mg tablet 100 mg PO DAILY Qty: 30 0RF buspirone 15 mg tablet 15 mg PO BID Date of admission: 08/16/23 17:05 Primary Ca
== END 2023-08-18 12:23 | disposition home or self-care (01) ==
LOC: ANHED 14:20 → ANHIMU 19:01 → ANH3MEDSUR 08-18 10:40 → ANHIMU 08-19 07:47
PROVIDERS: Physician Assistant; Preventive Medicine Aerospace Medicine; Admitting Provider Student in an Organized Health Care Education/Training Program; Emergency Provider General Practice; PCP Internal Medicine; Visit Provider Chiropractor
DX: R55 Syncope and collapse (principal); E87.1 Hypo-osmolality and hyponatremia; K70.10 Alcoholic hepatitis without ascites; E87.20 Acidosis, unspecified; R07.9 Chest pain, unspecified; E86.0 Dehydration; R00.0 Tachycardia, unspecified; R29.6 Repeated falls; J43.9 Emphysema, unspecified; K44.9 Diaphragmatic hernia without obstruction or gangrene; I77.819 Aortic ectasia, unspecified site; G47.33 Obstructive sleep apnea (adult) (pediatric); R45.1 Restlessness and agitation; I08.3 Combined rheumatic disorders of mitral, aortic and tricuspid valves; I95.9 Hypotension, unspecified; J44.9 Chronic obstructive pulmonary disease, unspecified; R10.9 Unspecified abdominal pain; M54.9 Dorsalgia, unspecified; E78.5 Hyperlipidemia, unspecified; I11.9 Hypertensive heart disease without heart failure; R11.2 Nausea with vomiting, unspecified; F10.10 Alcohol abuse, uncomplicated; R19.7 Diarrhea, unspecified; F11.11 Opioid abuse, in remission; F17.210 Nicotine dependence, cigarettes, uncomplicated; Z79.899 Other long term (current) drug therapy
CPT/HCPCS: 36415; 70450; 71045; 71275; 74174; 80048; 80053; 81003; 82948; 83605; 83690; 83735; 83880; 84484; 85025; 85055; 85610; 85730; 87040; 93005; 93306; 93880; 96361; 96374; 96375; 97161; 97165; 99285; A9270; C9113; G0378; J2060; J2270; J2405; J3411; J7030; Q9967

== ENCOUNTER 2023-12-27 19:58 | Observation (INO) | payer SELFPAY ==
--- NOTE | ~2023-12-27 | CT_ITS ---
EXAMINATION: CT brain wo con DATE: 12/27/2023 21:35 INDICATION: AMS . TECHNIQUE: Computed tomography (CT) of the head was performed without intravenous contrast. The mA wa s adjusted according to patient size. Iterative reconstruction technique was employed. The dose-lengt h product was 681.00 mGy-cm. COMPARISON: 08/16/2023. FINDINGS: No acute intracranial hemorrhage or extra-axial fluid collection. No hydrocephalus, mass, or herniation. No acute ischemic infarct. Unremarkable dural venous sinus attenuation. No acute osseous abnormality. Bilateral mastoid fluid, greater on the left, with middle ear fluid on the left. Moderate mucosal thi ckening affecting all paranasal sinuses. Mild atrophy and chronic white matter change. Atherosclerotic intracranial calcification. IMPRESSION: No acute intracranial process. Left mastoid air cell and middle ear space opacification, correlate for clinical findings of otomasto iditis. Pansinus mucoperiosteal disease. Reviewed, dictated and finalized at location K. LEWARE ARCHITECT IMPRESSION: No acute intracranial process. Left mastoid air cell and middle ear space opacification, correlate for clinica l findings of otomastoiditis. Pansinus mucoperiosteal disease.
--- NOTE | ~2023-12-27 | CT_ITS ---
EXAMINATION: CTA chest abdomen pelvis DATE: 12/27/2023 23:06 INDICATION: Chest/Abdomen/Back pain . TECHNIQUE: Computed tomography (CT) of the chest, abdomen, and pelvis was performed with 100 mL Omnip aque-350 intravenous contrast in the arterial phase. Automated exposure control and iterative reconst ruction technique were employed. The dose-length product was 500.17 mGy-cm. COMPARISON: 08/16/2023 FINDINGS: CHEST: Thoracic aorta: Mild arch ectasia. Mild atherosclerotic calcification. No dissection. Lung parenchyma and airways: Mild emphysematous change. Bibasilar atelectasis. Bibasilar scar. Thoracic inlet, axillae and chest wall: Symmetric bilateral gynecomastia. No thyroid mass. No axillar y lymphadenopathy. Mediastinum: No mass or lymphadenopathy. Heart and pericardium: Normal heart size. No pericardial effusion. Coronary artery calcifications: Mild. Pleura: Small bilateral pleural fluid collections. Pleural calcifications and chronic pleural thicken ing on the left. Thoracic bones: No acute osseous finding in the chest. Stable moderate burst fracture at T6. Stable m ultilevel mild anterior wedge deformity at the thoracolumbar junction ABDOMEN/PELVIS: Liver: Diffusely low density parenchyma. Biliary/Gallbladder: Gallbladder is normal. No bile duct dilation. Pancreas: No mass or duct dilation. Spleen: Normal. Adrenals:No mass. Kidneys: No suspicious mass, obstructing stone, or hydronephrosis. Bilateral renal scarring. GI tract: Mild distal esophageal and gastric wall edema. No small or large bowel dilation. Normal rayray endix. Diverticulosis without diverticulitis. Mesentery/Peritoneum: No ascites, mass, or free air. Retroperitoneum: No mass Atherosclerotic abdominal aortic and/or arterial calcifications. No aneurysm , dissection, or severe stenosis in the abdominopelvic arteries. Pelvis: Mild prostatomegaly with calcification. Gas within the urinary bladder. Focal bladder wall th ickening at the bladder dome. Soft Tissues: Soft tissues and body wall unremarkable. Abdominopelvic bones: No acute osseous finding in the abdomen/pelvis. IMPRESSION: Small bilateral pleural effusions, with chronic pleural thickening and calcification on the left, sli ghtly increased since the prior study. Mild esophagitis/gastritis. Possible hepatic steatosis. Gas within the urinary bladder, correlate with urinalysis and any history of recent catheterization o r instrumentation. Focal wall thickening near the bladder dome, consider urology referral for cystoscopy to evaluate for mass. Otherwise, no acute abdominopelvic process detected. Reviewed, dictated and finalized at location K. RACT MODELER IMPRESSION: Small bilateral pleural effusions, with chronic pleural thickening and calcific ation on the left, slightly increased since the prior study. Mild esophagitis/gastritis. Possible hepatic steatosis. Gas within the urinary bladder, correlate with urinalysis and any history of re cent catheterization or instrumentation. Focal wall thickening near the bladder dome, consider urology referral for cyst oscopy to evaluate for mass. Otherwise, no acute abdominopelvic process detected.
--- NOTE | ~2023-12-27 | XR_ITS ---
EXAMINATION: XR chest 1V portable Exam Date/Time: 12/27/2023 20:35 MANAGER DIABETES HISTORY: AMS Comparison: 08/16/2023. RESULT: Lines, tubes, and devices: None. Lungs and pleura: Left basilar scar, otherwise clear. Cardiomediastinal silhouette: Stable. Other: No acute osseous or upper abdominal finding. IMPRESSION: No acute cardiopulmonary process. Reviewed, dictated and finalized at location K. GER DIABETES
[2023-12-27 20:05] VITALS: BP 129/101; PULSE 83; RESP 12; O2SAT 100
--- NOTE | 2023-12-27 20:27 | ECG_ITS ---
Measurements Intervals [place] Rate: 80 P: 28 VA: 122 QRS: 42 QRSD: 97 T: 57 QT: 404 QTc: 467 Interpretive Statements SINUS RHYTHM WITHIN NORMAL LIMITS COMPARED TO ECG 08/16/2023 14:02:58 ST SEGMENT DEPRESSION HAS RESOLVED Electronically Signed On 12-28-2023 8:24:25 PROGRAM WRITER by Kingsley Daly M.D.
[2023-12-27 21:14] LABS: Basophils Percent Auto 0.5 % (0.2-1.2); Eosinophils Absolute Auto 0.1 K/mm3 (0-0.3); Eosinophils Percent Auto 3.1 % (0-4.4); Hematocrit 38.6 % (42.0-52.0); Hemoglobin 12.8 g/dL (14.0-18.0); Immature Granulocyte Absolute 0.01 K/mm3 (0.00-0.031); Immature Granulocyte Percent A 0.3 % (0-0.5); Immature Platelet Fraction Pct 8.7 % (0.9-11.2); Lymphocytes Absolute Auto 2.34 K/mm3 (0.9-3.2); Lymphocytes Percent Auto 59.7 % (18.3-44.2); Mean Corpuscular HGB Conc 33.2 g/dl (32-36); Mean Corpuscular Hemoglobin 34.6 pg (26-34); Mean Corpuscular Volume 104.3 fl (80-100); Monocytes Absolute Auto 0.6 K/mm3 (0.1-0.6); Monocytes Percent Auto 15.8 % (2.6-8.5); Neutrophils Absolute Auto 0.8 K/mm3 (1.3-6.7); Neutrophils Percent Auto 20.6 % (45.5-73.1); Platelet Count Result 119 k/mm3 (150-375); Red Cell Distribution Width 13.2 % (11.5-14.5); White Blood Count 3.9 K/mm3 (4.5-10.0)
[2023-12-27 21:16] LABS: Appearance Urine Clear (Clear); Bacteria Urine None Seen /hpf; Bilirubin Urine Negative (Negative); Blood Urine Negative (Negative); Color Urine Yellow (Yellow); Glucose Urine UA Negative (Negative); Ketones Urine Negative (Negative); Leukocyte Esterase Ur Trace LEU/UL (Negative); Nitrate Urine Negative (Negative); Non Pathogenic Casts 0-2; Protein Urine Negative (Negative); RBC Urine 0-2 /hpf (0-2); Specific Grav Ur 1.004 (1.001-1.035); Squamous Epithelial Cell Urine None seen /hpf (Few); Urobilinogen Urine 0.2 mg/dL (<2.0); WBC Urine 0-5 /hpf; pH Urine 6.5 (5.0-9.0)
[2023-12-27 21:19] LABS: Add Urine Microscopic? YES
[2023-12-27 21:23] LABS: Ethanol 12 mg/dL (<10); Lactic Acid Reflex 1.1 mmol/L (0.7-2.0)
[2023-12-27 21:23] LABS: Ammonia < 9 umol/L (9-30)
[2023-12-27 21:24] LABS: Alanine Aminotransferase 50 U/L (6-50); Albumin Level 2.7 g/dL (3.5-5.1); Alkaline Phosphatase 94 U/L (38-126); Anion Gap 4 mmol/L (8-16); Aspartate Amino Transferase 97 U/L (17-59); Bilirubin,Total 0.6 mg/dL (0.2-1.3); Calcium 8.3 mg/dL (8.4-10.2); Carbon Dioxide 25 mmol/L (22-30); Chloride 108 mmol/L (98-107); Estimated CRCL calculation 138 ml/min; Estimated Glomerular Filt Rate > 60; Glucose 76 mg/dL (65-110); Lipase 29 U/L (23-300); Magnesium 1.9 mg/dL (1.6-2.3); Phosphorus 3.5 mg/dL (2.5-4.5); Potassium 3.5 mmol/L (3.4-5.0); Sodium 137 mmol/L (137-145)
[2023-12-27 21:25] LABS: Blood Urea Nitrogen < 2 mg/dL (9-20)
[2023-12-27 21:28] LABS: Amphetamine Screen Urine Negative (Negative); Barbiturate Screen Urine Negative (Negative); Benzodiazepines Screen Urine Positive (Negative); Cannabinoid Screen Urine Negative (Negative); Cocaine Screen Urine Negative (Negative); Methadone Screen Urine Negative (Negative); Opiate Screen Urine Negative (Negative); Phencyclidine Screen Urine Negative (Negative)
[2023-12-27 21:35] LABS: Troponin I 0.014 ng/mL (0.000-0.034)
[2023-12-27 21:45] LABS: INR 1.1; Prothrombin Time 14.6 Seconds (11.1-14.7)
[2023-12-27 21:48] LABS: Influenza A QL RT-PCR Negative (Negative); Influenza B QL RT-PCR Negative (Negative); RSV RNA, RT-PCR Negative (Negative); SARS-CoV-2 RNA PCR Positive (Negative)
[2023-12-27 21:56] VITALS: PULSE 81; O2SAT 98
[2023-12-27 22:06] VITALS: BP 122/83; PULSE 80; RESP 18; O2SAT 97
[2023-12-27 22:16] VITALS: BP 116/86; PULSE 83; RESP 18; O2SAT 97
[2023-12-27 22:31] VITALS: BP 115/100; PULSE 89; RESP 16; O2SAT 99
[2023-12-27 22:47] VITALS: BP 112/97; PULSE 90; RESP 19; O2SAT 99
[2023-12-28] VITALS (20 sets, daily range): BP systolic 100–163; BP diastolic 71–101; PULSE 64–101; RESP 14–20; TEMP 36.4–36.9; O2SAT 94–100
--- NOTE | 2023-12-28 00:56 | ED.GENADULT ---
HPI - General Adult General Chief complaint: Altered Mental Status Stated complaint: altered mental status Time Seen by Provider: 12/27/23 20:21 History of Present Illness HPI narrative: this is a 63-year-old alcoholic presenting ED for weakness. Patient was just discharged from [facility] 2 days ago after a 5 day stay for alcohol withdrawal. Since he came back home he has been too weak to walk. He has had multiple falls. His no longer feels she is capable of taking care of him. Patient is complaining generalized body pain. Patient drink 2 beers today. He has also been taking Librium. Related Data Home Medications Medication Instructions Recorded Confirmed furosemide 40 mg tablet 40 mg PO DAILY PRN Edema 06/13/20 08/16/23 lisinopril 20 mg tablet 20 mg PO DAILY 06/13/20 08/16/23 buspirone 15 mg tablet 15 mg PO BID 08/16/23 08/16/23 Allergies Allergy/AdvReac Type Severity Reaction Status Date / Time No Known Allergies Allergy Verified 08/16/23 14:39 [facility] Past Medical History Medical History Alcohol abuse Chronic obstructive pulmonary disease Hyperlipidemia Hypertension Nicotine dependence Obstructive sleep apnea Surgical History Surgical History History of orthopedic surgery Bilateral shoulder arthroscopy. Bilateral knee arthroscopy. Wrist surgery. Family History Family History Father Diverticulitis Father from complications Social History Social History Social History: Surrogate medical decision maker: Jennifer Gardner, spouse. Code status: Full code. Smoking packs per day: 2 Smoking cigarettes per day: 40.0 Years smoked: 40 Smoking pack-years: 80.00 Smoking status: Current every day smoker Alcohol intake: current Drinks per week: 70 Alcohol use details: Drinks at least 10 to 12 beers a day. Substance use: never Substance use type: former substance user Lack of Transportation: No Lack of Food: Never True Current Housing: I Have Housing Concerned About Future Housing: No Difficulty Paying Gas/Electric Bills: No Difficulty Paying for Meds: No Currently Unemployed: No Education: Trade/Vocational Certificate Difficulty w/ Childcare or Family Care: No Additional living arrangements comments: Lives with spouse in [place]. 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 Spiritual care concerns: No Exam Narrative: APPEARANCE: Patient appears chronically unwell Head: atraumatic. EYES: EOMI, NOSE: Atraumatic NECK: Trachea midline RESPIRATORY: No increased rate of breathing, clear to auscultation CARDIOVASCULAR: RRR, no peripheral edema ABDOMINAL: soft no guarding or rebound but reported tenderness MUSCULOSKELETAl: No obvious deformities NEURO: Alert. generalized weakness all extremities cranial nerves 2-12 intact SKIN:: rosacea PSYCHIATRIC: normal, Course Vital Signs Vital signs: Vital Signs Pulse Rate 83 12/27/23 20:05 Respiratory Rate 12 12/27/23 20:05 Blood Pressure 129/101 H 12/27/23 20:05 Pulse Oximetry 100 12/27/23 20:05 Oxygen Delivery Room Air 12/27/23 20:05 Pulse Rate 90 12/27/23 22:47 Respiratory Rate 19 12/27/23 22:47 Blood Pressure 112/97 H 12/27/23 22:47 Pulse Oximetry 99 12/27/23 22:47 Oxygen Delivery Room Air 12/27/23 21:56 Medical Decision Making MDM Narrative Medical decision making narrative: -Course: 63-year-old male history of alcohol use disorder presenting for generalized weakness. patient is unable to communicate his symptoms clearly so a broad workup was ordered. Workup was positive for COVID-19. Family is unable to care for the patient in his current state. Patient be admitted hospital for PT/O
[2023-12-28 01:08] LABS: Troponin I 0.014 ng/mL (0.000-0.034)
--- NOTE | 2023-12-28 02:28 | PM.IMHP ---
H&P: HPI History of Present Illness Date/Time: 12/28/23 02:28 Chief Complaint: AMS, generalized weakness Narrative: A 63-year-old alcoholic presenting ED for weakness.? Patient was just discharged from [place] 2 days ago after a 5 day stay for alcohol withdrawal.? Since he came back home he has been too weak to walk.? He has had multiple falls. His no longer feels she is capable of taking care of him. ? ? Patient is complaining generalized body pain.? Patient drink 2 beers today.? He has also been taking Librium. patient stated that he would sign AMA if anyone \tries to send him to alf, stated that he has been weak and he does not know why. Review of Systems Review of Systems: All systems reviewed & are unremarkable except as noted in HPI and below PMFSH Past Medical History Medical History Alcohol abuse Chronic obstructive pulmonary disease Hyperlipidemia Hypertension Nicotine dependence Obstructive sleep apnea Surgical History Surgical History History of orthopedic surgery Bilateral shoulder arthroscopy. Bilateral knee arthroscopy. Wrist surgery. Family History Family History Father Diverticulitis Father from complications Social History Social History Social History: Surrogate medical decision maker: Jennifer Gardner, spouse. Code status: Full code. Smoking packs per day: 2 Smoking cigarettes per day: 40.0 Years smoked: 40 Smoking pack-years: 80.00 Smoking status: Current every day smoker Alcohol intake: current Drinks per week: 70 Alcohol use details: Drinks at least 10 to 12 beers a day. Substance use: never Substance use type: former substance user Lack of Transportation: No Lack of Food: Never True Current Housing: I Have Housing Concerned About Future Housing: No Difficulty Paying Gas/Electric Bills: No Difficulty Paying for Meds: No Currently Unemployed: No Education: Trade/Vocational Certificate Difficulty w/ Childcare or Family Care: No Additional living arrangements comments: Lives with spouse in [place]. 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 Spiritual care concerns: No Meds Home Medications and Allergies Home Medications Medication Instructions Recorded Confirmed Type furosemide 40 mg tablet 40 mg PO DAILY PRN Edema 06/13/20 08/16/23 History lisinopril 20 mg tablet 20 mg PO DAILY 06/13/20 08/16/23 History thiamine HCl (vitamin B1) 100 mg 100 mg PO DAILY #30 tabs 04/20/22 08/16/23 Rx tablet buspirone 15 mg tablet 15 mg PO BID 08/16/23 08/16/23 History chlordiazepoxide HCl 25 mg capsule 25 mg PO BID PRN agitation #14 caps 08/18/23 Rx Allergies Allergy/AdvReac Type Severity Reaction Status Date / Time No Known Allergies Allergy Verified 08/16/23 14:39 Vital Signs Vital Signs - 24 hr 12/27/23 20:05 12/27/23 21:56 12/27/23 21:56 Pulse Rate 83 81 Respiratory Rate 12 Blood Pressure 129/101 H Pulse Oximetry 100 98 Oxygen Delivery Room Air Room Air 12/27/23 22:06 12/27/23 22:16 12/27/23 22:31 Pulse Rate 80 83 89 Respiratory Rate 18 18 16 Blood Pressure 122/83 116/86 115/100 H Pulse Oximetry 97 97 99 Oxygen Delivery 12/27/23 22:47 Pulse Rate 90 Respiratory Rate 19 Blood Pressure 112/97 H Pulse Oximetry 99 Oxygen Delivery Exam Narrative: APPEARANCE:? Patient appears frail, unkempt Head: atraumatic. EYES:? EOMI, NOSE: Atraumatic NECK: Trachea midline RESPIRATORY: No increased rate of breathing, clear to auscultation CARDIOVASCULAR: RRR, no peripheral edema ABDOMINAL:? soft no guarding or rebound but reported tenderness MUSCULOSKELETAl: No obvious deformities NEURO: Alert.? generalized weakness all extremiti
--- NOTE | 2023-12-28 02:40 | PC.NURSE ---
Pt belligerent with staff in room as well as . left for evening.
--- NOTE | 2023-12-28 03:30 | PC.NURSE ---
Pt apologetic about verbal aggression earlier. Calm and cooperative at this time. States he thinks he has dementia. Explained probable intermediate card tender alcohol use on neuro. Pt also reports that he is seeing birds in the room. Pt aware that these were likely hallucinations. Pt adjusted and pulled up in bed for comfort. New IV obtained d/t infiltration in CT of original IV.
[2023-12-28] MEDS: LORazepam INJ (*CRX) 2 MG/ML VIAL IV PUSH (04:19)
[2023-12-28] MEDS: SODIUM CHLORIDE 0.9% IV 1,000 ML 100 ML IV CONT ×2 (04:48→16:55)
[2023-12-28] MEDS: chlordiazePOXIDE (*CRX) 25 MG CAPSULE PO ×4 (07:17→23:22)
--- NOTE | 2023-12-28 07:31 | PC.NURSE ---
Report to MONALISA Maldonado. Pt boosted in bed and repositioned. Took Librium and remains cooperative.
[2023-12-28 07:47] LABS: Glucose Point of Care 83 mg/dl (65-105)
[2023-12-28] MEDS: THIAMINE HCL 200 MG/2 ML VIAL 100 MG IV PUSH (10:44)
--- NOTE | 2023-12-28 11:11 | PC.NURSE ---
pt wants to leave states I'm walking out of here. on cell phone and tells him she is not able to take care of him at home anymore
--- NOTE | 2023-12-28 11:11 | PC.NURSE ---
pulls leads, monitor and cuff off, will not leave on
--- NOTE | 2023-12-28 11:38 | ECG_ITS ---
Measurements Intervals [place] Rate: 86 P: 35 [place]: 123 QRS: 55 QRSD: 91 T: 50 QT: 378 QTc: 455 Interpretive Statements BASELINE ARTIFACT NOTED SINUS RHYTHM WITHIN NORMAL LIMITS COMPARED TO ECG 12/27/2023 22:01:29 NO OBVIOUS CHANGE ALTHOUGH HE ECG QUALITY IS SUBOPTIMAL Electronically Signed On 12-28-2023 19:09:33 HYDROPULPER by Kingsley Daly M.D.
--- NOTE | 2023-12-28 11:49 | PC.NURSE ---
heart healthy lunch tray ordered
--- NOTE | 2023-12-28 12:27 | ADMGEN ---
This patient, Baljit Green, was admitted to [facility] Surg Room 316-01 @1227. Patient/family oriented to hospital policies and general routines including ID bracelet, bed and alarms, visiting hours, pain management, procedures, bathroom and other care routines, personal items, smoking policy, room service/diet, and visiting hours. Information on how to activate the Rapid Response Team has been discussed. Patient/Family are encouraged to report perceived risks to care and to ask questions if they do not understand what they are told or what they should do.
[2023-12-28 13:05] LABS: Glucose Point of Care 74 mg/dl (65-105)
--- NOTE | 2023-12-28 14:15 | PM.IMPN ---
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 Patient was just discharged from [place] 2 days ago after a 5 day stay for alcohol withdrawal.? Since he came back home he has been too weak to walk.? He has had multiple falls. His no longer feels she is capable of taking care of him. Patient is complaining generalized body pain.? Patient drink 2 beers today.? He has also been taking Librium. patient stated that he would sign AMA if anyone \tries to send him to assisted, stated that he has been weak and he does not know why. Interval Hx;12/28/2023 pt seen today he is awake, in no acute distress, he reports ongoing weakness relates it to his left knee pain and weakness. He states he has had multiple falls in the past few weeks. He denies any dizziness, chest pain, n/v, fever or chills. He admits to drinking daily. Pt has reported that he is not interested in going to a subacute facility for rehab at this time. Labs, Covid+ Review of Systems Review of Systems: All systems reviewed & are unremarkable except as noted in HPI and below Exam Narrative: APPEARANCE:? Patient appears frail, unkempt Head: atraumatic. EYES:? EOMI, NOSE: Atraumatic NECK: Trachea midline RESPIRATORY: No increased rate of breathing, clear to auscultation CARDIOVASCULAR: RRR, no peripheral edema ABDOMINAL:? soft no guarding or rebound but reported tenderness MUSCULOSKELETAl: No obvious deformities NEURO: Alert.? generalized weakness all extremities cranial nerves 2-12 intact SKIN::? rosacea, multiple bruising on extremities. PSYCHIATRIC: normal, ? Objective Data Vital Signs Vital Signs: Vital Signs - 24 hr 12/27/23 20:05 12/27/23 21:56 12/27/23 21:56 Temperature Pulse Rate 83 81 Respiratory Rate 12 Blood Pressure 129/101 H Pulse Oximetry 100 98 Oxygen Delivery Room Air Room Air 12/27/23 22:06 12/27/23 22:16 12/27/23 22:31 Temperature Pulse Rate 80 83 89 Respiratory Rate 18 18 16 Blood Pressure 122/83 116/86 115/100 H Pulse Oximetry 97 97 99 Oxygen Delivery 12/27/23 22:47 12/28/23 00:46 12/28/23 02:32 Temperature Pulse Rate 90 89 93 Respiratory Rate 19 14 19 Blood Pressure 112/97 H 148/100 H 132/92 H Pulse Oximetry 99 100 100 Oxygen Delivery 12/28/23 04:22 12/28/23 04:31 12/28/23 05:46 Temperature Pulse Rate 101 H 88 85 Respiratory Rate 17 20 19 Blood Pressure 147/100 H 133/90 111/80 Pulse Oximetry 98 96 98 Oxygen Delivery 12/28/23 06:01 12/28/23 06:32 12/28/23 06:47 Temperature Pulse Rate 80 92 99 Respiratory Rate 19 16 15 Blood Pressure 100/71 141/101 H 163/90 H Pulse Oximetry 97 Oxygen Delivery 12/28/23 07:24 12/28/23 07:47 12/28/23 08:18 Temperature 97.6 F Pulse Rate 93 91 89 Respiratory Rate 18 18 18 Blood Pressure 117/80 115/82 114/85 Pulse Oximetry 99 97 Oxygen Delivery 12/28/23 09:01 12/28/23
[2023-12-28] MEDS: ACETAMINOPHEN 325 MG TABLET 650 MG PO (16:55)
[2023-12-28 18:16] LABS: Glucose Point of Care 138 mg/dl (65-105)
[2023-12-29] VITALS: PULSE 79
[2023-12-29] MEDS: SODIUM CHLORIDE 0.9% IV 1,000 ML 100 ML IV CONT (04:42)
[2023-12-29] MEDS: chlordiazePOXIDE (*CRX) 25 MG CAPSULE PO (05:40)
[2023-12-29 06:24] LABS: Basophils Percent Auto 0.7 % (0.2-1.2); Eosinophils Absolute Auto 0.2 K/mm3 (0-0.3); Eosinophils Percent Auto 4.2 % (0-4.4); Hematocrit 36.6 % (42.0-52.0); Hemoglobin 12.2 g/dL (14.0-18.0); Immature Granulocyte Absolute 0.01 K/mm3 (0.00-0.031); Immature Granulocyte Percent A 0.2 % (0-0.5); Immature Platelet Fraction Pct 9.4 % (0.9-11.2); Lymphocytes Absolute Auto 1.96 K/mm3 (0.9-3.2); Mean Corpuscular HGB Conc 33.3 g/dl (32-36); Mean Corpuscular Hemoglobin 35.1 pg (26-34); Mean Corpuscular Volume 105.2 fl (80-100); Mean Platelet Volume 11.6 fl (7.4-10.4); Monocytes Absolute Auto 0.6 K/mm3 (0.1-0.6); Monocytes Percent Auto 15.7 % (2.6-8.5); Neutrophils Absolute Auto 1.3 K/mm3 (1.3-6.7); Neutrophils Percent Auto 31.2 % (45.5-73.1); Platelet Count Result 121 k/mm3 (150-375); Red Blood Count 3.48 M/mm3 (4.6-6.20); White Blood Count 4.1 K/mm3 (4.5-10.0)
[2023-12-29 06:28] LABS: INR 1.1; Prothrombin Time 14.5 Seconds (11.1-14.7)
[2023-12-29 06:57] LABS: Alanine Aminotransferase 40 U/L (6-50); Albumin Level 2.6 g/dL (3.5-5.1); Alkaline Phosphatase 77 U/L (38-126); Anion Gap 5 mmol/L (8-16); Aspartate Amino Transferase 65 U/L (17-59); Bilirubin,Total 0.8 mg/dL (0.2-1.3); Calcium 8.3 mg/dL (8.4-10.2); Carbon Dioxide 21 mmol/L (22-30); Chloride 111 mmol/L (98-107); Estimated CRCL calculation 138 ml/min; Estimated Glomerular Filt Rate > 60; Glucose 98 mg/dL (65-110); Potassium 3.3 mmol/L (3.4-5.0); Sodium 137 mmol/L (137-145)
[2023-12-29 07:10] LABS: Blood Urea Nitrogen < 2 mg/dL (9-20)
[2023-12-29 09:07] VITALS: O2SAT 95
--- NOTE | 2023-12-29 11:41 | PM.DS ---
DS: Admitting Diagnosis Discharge Date 12/29/23 Admitting Diagnosis Physical deconditioning Alcoholic myopathy Alcohol withdrawal Pancytopenia DS: Discharge Diagnosis Discharge Diagnosis (1) COVID-19: Code(s): U07.1 - COVID-19 Status: Acute Assessment and Plan: viral pcr +,unsure when s/s started, will not start remdesivir, no indication for steroids pt not requiring 02 pt not requiring O2, vitals are 135/90, 86PP, RR 16, SPO2 100% vitals q 4 hrs (2) Adult failure to thrive: Code(s): R62.7 - Adult failure to thrive Status: Acute Assessment and Plan: -consult care coordination -PT/OT eval and treat (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 Status: Acute Assessment and Plan: -patient has history of alcohol abuse, recently discharged from [facility] [place] for alcohol abuse Presents with proximal muscle weakness left knee -reports multiple recent falls at home -initiate CIWA protocol -consult care coordination -patient reports he does not want to go to subacute facility for any rehabilitation (4) Nicotine dependence: Code(s): F17.200 - Nicotine dependence, unspecified, uncomplicated Status: Acute (5) Alcohol abuse: Code(s): F10.10 - Alcohol abuse, uncomplicated Status: Acute Plan 12/29/23: Patient left AMA, after being advised of the possible risks and complications. DS: Summary Hospital Course Reason for hospitalization: Physical deconditioning Alcoholic myopathy Alcohol withdrawal Pancytopenia Hospital Course: Interval history: Chief Complaint: AMS, generalized weakness Narrative: A 63-year-old alcoholic presenting ED for weakness.? Patient was just discharged from [place] 2 days ago after a 5 day stay for alcohol withdrawal.? Since he came back home he has been too weak to walk.? He has had multiple falls. His no longer feels she is capable of taking care of him. Patient is complaining generalized body pain.? Patient drink 2 beers today.? He has also been taking Librium. patient stated that he would sign AMA if anyone \tries to send him to [facility], stated that he has been weak and he does not know why. Interval Hx;12/28/2023 pt seen today he is awake, in no acute distress, he reports ongoing weakness relates it to his left knee pain and weakness. He states he has had multiple falls in the past few weeks. He denies any dizziness, chest pain, n/v, fever or chills. He admits to drinking daily. Pt has reported that he is not interested in going to a subacute facility for rehab at this time. Labs, Covid+ Significant findings: CT head: No acute intracranial process.Left mastoid air cell and middle ear space opacification, correlate for clinical findings of otomastoiditis.Pansinus mucoperiosteal disease. Pancytopenia: Hb 12.8, WBC 3.9; PLT 119 AST 97, ALT 50, ALP 94, T. Bili 0.6 UA: unremarkable Procedures performed: None Treatment rendered: CIWA triggered benzodiazepine Rx, Thiamine, IVFs; PT/OT eval and Rx Time Spent with Patient Time attestation: Total time spent providing and/or coordinating discharge services: Exam Narrative: APPEARANCE:? Patient appears frail, unkempt Head: atraumatic. EYES:? EOMI, NOSE: Atraumatic NECK: Trachea midline RESPIRATORY: No increased rate of breathing, clear to auscultation CARDIOVASCULAR: RRR, no peripheral edema ABDOMINAL:? soft no guarding or rebound but reported tenderness MUSCULOSKELETAl: No obvious deformities NEURO: Alert.? generalized weakness all extremities cranial nerves 2-12 intact SKIN::? rosacea, multiple bruising on extremities. PSYCHIATRIC: normal, ? DS: Data Data Completed and Pending Labs on day of discharge: Labs from last 24 hours 12/29/23 12/28/23 12/28/23 06:06 18:12 13:01 WBC 4.1 L RBC 3.48 L Hgb 12.2 L Hct 36.6 L MCV 105.2 H MCH 35.1 H MCHC 33.3 RDW 13.0 Plt Count 121 L MPV 11.6 H
== END 2023-12-29 10:30 | disposition left against medical advice (07) ==
LOC: ANHED 12-28 01:07 → ANH3MEDSUR 12-28 13:23
PROVIDERS: Nurse Practitioner; Admitting Provider Student in an Organized Health Care Education/Training Program; Emergency Provider Emergency Medicine; PCP Internal Medicine; Visit Provider Internal Medicine
DX: U07.1 COVID-19 (principal); R62.7 Adult failure to thrive; G72.1 Alcoholic myopathy; J44.9 Chronic obstructive pulmonary disease, unspecified; R29.6 Repeated falls; E78.5 Hyperlipidemia, unspecified; I10 Essential (primary) hypertension; Z53.29 Procedure and treatment not carried out because of patient's decision for other reasons; F13.20 Sedative, hypnotic or anxiolytic dependence, uncomplicated; G47.33 Obstructive sleep apnea (adult) (pediatric); F17.210 Nicotine dependence, cigarettes, uncomplicated; F10.10 Alcohol abuse, uncomplicated; Y90.0 Blood alcohol level of less than 20 mg/100 ml; Z79.899 Other long term (current) drug therapy
CPT/HCPCS: 36415; 70450; 71045; 71275; 74174; 80053; 80307; 81001; 82140; 82607; 82948; 83605; 83690; 83735; 84100; 84443; 84484; 85025; 85055; 85610; 85730; 87040; 87637; 93005; 96360; 96361; 96374; 96375; 99285; A9270; G0378; J2060; J3411; J7030; Q9967

== ENCOUNTER 2023-12-29 12:04 | Emergency (ER) | payer SELFPAY ==
[2023-12-29 12:46] VITALS: BP 134/75; PULSE 101; RESP 18; TEMP 36.4; O2SAT 99
--- NOTE | 2023-12-29 16:28 | PC.NURSE ---
pt has asked to leave many times, from waiting room. pt does not appear able to care for self. pt is a/o, is able to answer orientation questions. pt earlier in day was able to sign out AMA from floor
--- NOTE | 2023-12-29 18:21 | PC.NURSE ---
Pt A&Ox4 and refused to be seen by doctor. Pt wouldnt allow staff to change him. Pt refused to be triaged and was picked up by .
== END 2023-12-29 18:52 | disposition left against medical advice (07) ==
PROVIDERS: PCP Internal Medicine
DX: S39.92XA Unspecified injury of lower back, initial encounter (principal)
CPT/HCPCS: 99199

== ENCOUNTER 2024-06-02 17:22 | Inpatient (IN) | payer SELFPAY ==
--- NOTE | ~2024-06-02 | XR_ITS ---
EXAMINATION: SACRUM/COCCYX DATE: 06/05/2024 12:34 INDICATION: Low back pain TECHNIQUE: Three views sacrum/coccyx FINDINGS: Comparison to CT dated 06/02/2024 There is no displaced fracture of the sacrum. The coccyx demonstrates overall normal morphology with out acute angulation. IMPRESSION: 1. No acute displaced osseous abnormality of the sacrum. Suspicion for occult or nondisplaced sacral fracture can either be evaluated with CT or MRI. 2. Grossly normal morphology to the coccyx without acute angulation. However, due to the wide range of normal variation of the coccyx, acute injury would be best evaluated by clinical examination and patient's symptoms. Reviewed, dictated and finalized at location B.
--- NOTE | ~2024-06-02 | CT_ITS ---
EXAMINATION: CT abdomen pelvis w con DATE: 06/02/2024 19:27 INDICATION: lower back, lower abd pain TECHNIQUE: Computed tomography (CT) of the abdomen and pelvis was performed with 100 mL Omnipaque-350 intravenous contrast. Automated exposure control and iterative reconstruction technique were employe d. The dose-length product was 501.95 mGy-cm. COMPARISON: 12/27/2023. FINDINGS: Lower thorax: Trace left pleural fluid. Left basilar scar. Left pleural calcification. Liver: Diffuse fatty infiltration. Biliary/Gallbladder: Gallbladder is normal. No bile duct dilation. Pancreas: No mass or duct dilation. Spleen: Normal. Adrenals:No mass. Kidneys: No suspicious mass, obstructing stone, or hydronephrosis bilateral cortical scarring. GI tract: No small or large bowel dilation. Normal appendix. Diverticulosis without diverticulitis. Mesentery/Peritoneum: No ascites, mass, or free air. Retroperitoneum: No mass. Atherosclerotic abdominal aortic and/or arterial calcifications. Pelvis: Partially distended urinary bladder with mild wall thickening. The focal thickening in the bl adder dome described on the prior study is no longer appreciated. Mild prostatomegaly with calcificat ions. Soft Tissues: Soft tissues and body wall unremarkable. Bones: No acute osseous finding. IMPRESSION: Resolved right pleural effusion, improving left pleural effusion. Stable left basilar scar and pleura l calcification. Hepatic steatosis. Otherwise, no acute abdominopelvic process detected. Reviewed, dictated and finalized at location K. IMPRESSION: Resolved right pleural effusion, improving left pleural effusion. Stable left b asilar scar and pleural calcification. Hepatic steatosis. Otherwise, no acute abdominopelvic process detected.
--- NOTE | ~2024-06-02 | CT_ITS ---
CTA brain carotid Ordering provider: Juan F Vigil MD History: . headache . Comparison: December 27, 2023 Technique: CT angiogram head and neck was performed following timed intravenous injection of contrast . Thin slice axial images and reformatted coronal images were obtained. Three dimensional reformatted images of the brain were also obtained using a [employer] workstation. The dose-length product was 173 5.92 mGy-cm. 100 mL Omnipaque 350 was given IV. FINDINGS: HEAD: --ANTERIOR AND MIDDLE CEREBRAL ARTERIES AND BRANCHES: Normal caliber and contour. --INTERNAL CAROTID ARTERIES: Mild atheromatous disease but no significant stenosis. No occlusion. --BASILAR ARTERY AND BRANCHES: Normal caliber and contour. No atheromatous disease. --POSTERIOR CEREBRAL ARTERIES: Normal caliber and contour. --POSTERIOR COMMUNICATING ARTERIES: Not visualized which is probably related to congenital absence or small size. --ANEURYSM: None visualized. --BRAIN: No acute intracranial process. Brain atrophy with deep white matter ischemic changes. --BONES AND SUPERFICIAL SOFT TISSUES: Please refer to report of CT head performed the same day. --PARANASAL SINUSES AND MASTOIDS: Bilateral frontal sinus disease. Mucosal thickening of the left ost iomeatal complex. NECK: --RIGHT CERVICAL CAROTID SYSTEM: Mild atheromatous disease of the carotid bulb and proximal internal carotid artery without significant stenosis. Percent stenosis per NASCET criteria is 0%. No carotid d issection. Otherwise, no significant atheromatous disease or stenosis of the cervical carotid system. --LEFT CERVICAL CAROTID SYSTEM: Mild atheromatous disease of the carotid bulb and proximal internal c arotid artery without significant stenosis. Percent stenosis per NASCET criteria is 20%. No carotid dissection. Otherwise, no significant atheromatous disease or stenosis of the cervical carotid system . --VERTEBRAL ARTERIES: Normal caliber and contour. --VISUALIZED AORTIC ARCH AND BRANCHING VESSELS: Mild atheromatous disease but no significant stenosis . Ascending aorta measures 4.5 cm. --SOFT TISSUES: Normal. --CERVICAL SPINE: Age appropriate degenerative changes. IMPRESSION: 1. CTA head and neck. Percent stenosis per NASCET criteria is 20% on the left. Reviewed, dictated and finalized at location A. IMPRESSION: 1. CTA head and neck. Percent stenosis per NASCET criteria is 20% on the left .
--- NOTE | ~2024-06-02 | XR_ITS ---
3 VIEWS LUMBAR SPINE Ordering provider: Juan F Vigil History: . Pain . Comparison: None. FINDINGS: VERTEBRAL BODIES: No visible fracture or subluxation. Degenerative changes of the spine. DISK SPACES: Narrowing of the disc space L4-L5. Facet joint disease at the level of L4-L5 and L5-S1. SOFT TISSUES: Vascular calcifications. IMPRESSION: No acute osseous abnormality lumbar spine. Consider follow up MRI lumbar spine if there is concern for spinal stenosis/neural impingement. Reviewed, dictated and finalized at location A. IMPRESSION: No acute osseous abnormality lumbar spine. Consider follow up MRI lumbar spine if there is concern for spinal stenosis/lois ral impingement.
--- NOTE | ~2024-06-02 | XR_ITS ---
EXAMINATION: XR chest 1V portable Exam Date/Time: 06/02/2024 17:50 CDT HISTORY: chest pain Comparison: 12/27/2023. RESULT: Lines, tubes, and devices: Soft tissue anchors in the right glenoid. Lungs and pleura: Left basilar scar/atelectasis, otherwise clear. Cardiomediastinal silhouette: Stable. Other: No acute osseous or upper abdominal finding. Old right posterolateral fifth rib fracture. IMPRESSION: No acute cardiopulmonary process. Reviewed, dictated and finalized at location K.
--- NOTE | ~2024-06-02 | XR_ITS ---
XR chest 1V 06/05/2024 12:35 Indication: Cough Procedure: AP view of the chest Comparison: Comparison to multiple prior studies sequentially, with oldest reviewed study dated 07/28. Findings: There is left basilar atelectasis/scarring. There is mild pulmonary vascular congestion. He art size normal. There is chronic left pleural thickening at the costophrenic recess. Impression: 1: Mild pulmonary vascular congestion. 2: Left basilar atelectasis/scarring. Reviewed, dictated and finalized at location B. Impression: 1: Mild pulmonary vascular congestion. 2: Left basilar atelectasis/scarring.
--- NOTE | ~2024-06-02 | CT_ITS ---
CT chest abdomen pelvis wo con Ordering provider: Juan F Vigil MD History: . Chills/elevated liver enzymes/cough . Comparison: June 02, 2024 Technique: CT chest without IV contrast. CT abdomen and pelvis without oral and IV contrast. The dose -length product was 1317.13 mGy-cm. FINDINGS: The study is limited due to lack of IV contrast. CHEST: --VISUALIZED THORACIC INLET: Normal as visualized. --MEDIASTINUM: Aorta/coronary arteries: Mild atheromatous disease. Ascending aorta measures 4.2 cm. Heart/other: The heart is not enlarged. Trace pericardial effusion. Lymph nodes: No mediastinal or hilar adenopathy. --LUNGS: Atelectatic changes in the left lung base. Possibility of nodule cannot be excluded measurin g 2 x 1.2 cm and is unchanged from previous examination. No No infiltrates or effusions. No pneumoth orax. --MUSCULOSKELETAL: Soft tissues: The superficial soft tissues are normal. Bones: Age appropriate degenerative changes of the spine. T7 compression fractures. ABDOMEN/PELVIS: --MUSCULOSKELETAL: Bones: Age appropriate degenerative changes of the spine. Defect in the left iliac bone most likely p ostbiopsy. Superficial soft tissues: Bilateral fat containing inguinal hernias larger on the left side. The supe rficial soft tissues are normal. --UPPER ABDOMINAL ORGANS: Liver: Normal. Gallbladder: Cholelithiasis. Spleen: Normal. Stomach/duodenum: Small sliding hiatus hernia. Pancreas: Normal. Adrenals: Normal. Kidneys: Tiny stone in the left kidney lower pole. 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 --PELVIC ORGANS: The bladder is underfilled with slightly thickened wall. No bladder stones. Prostat ic calcifications. Prostatic enlargement. --BOWEL AND MESENTERY: Colon: Mild diverticulosis without diverticulitis sigmoid colon. Normal appendix. Small Bowel: Normal. No obstruction. Peritoneum/mesentery: No free air or free fluid. No mesenteric lymphadenopathy. --RETROPERITONEUM: Mild atheromatous disease of the abdominal aorta. No retroperitoneal lymphadenop athy. IMPRESSION: CHEST: 1. Ascending aorta measures 4.2 cm. 2. Atelectatic changes in the left lung bases with possible nodule unchanged from previous examinati on. 3. No acute lung lesion. 4. Trace of pericardial effusion. 5. Compression fracture of T7 most likely old ABDOMEN/PELVIS: 1. Cholelithiasis. 2. Tiny stone in the left kidney lower pole. 3. Prostatic enlargement with calcification 4. Small sliding hiatus hernia. Reviewed, dictated and finalized at location A. IMPRESSION: CHEST: 1. Ascending aorta measures 4.2 cm. 2. Atelectatic changes in the left lung bases with possible nodule unchanged f rom previous examination. 3. No acute lung lesion. 4. Trace of pericardial effusion. 5. Compression fracture of T7 most likely old ABDOMEN/PELVIS: 1. Cholelithiasis. 2. Tiny stone in the left kidney lower pole. 3. Prostatic enlargement with calcification 4. Small sliding hiatus hernia.
--- NOTE | 2024-06-02 17:25 | ECG_ITS ---
Test Date: 2024-06-02 17:31:07 Measurements Intervals [place] Rate: 86 P: 63 VT: 142 QRS: 48 QRSD: 96 T: 62 QT: 381 QTc: 456 Interpretive Statements SINUS RHYTHM INCOMPLETE RIGHT BUNDLE BRANCH BLOCK BASELINE ARTIFACT- I, II, III, AVR, AVL, AVF, V1-V6 BORDERLINE ECG No previous ECG available for comparison Electronically Signed On 06-02-2024 19:24:49 CDT by Alireza Hill D.O.
[2024-06-02 17:37] VITALS: BP 151/102; PULSE 85; RESP 16; TEMP 36.7; O2SAT 100
--- NOTE | 2024-06-02 18:08 | ED.NAVMDI ---
HPI - Nausea/Vomiting/Diarrhea General Chief complaint: Nausea/Vomiting/Diarrhea Stated complaint: ETOH withdrawal Time Seen by Provider: 06/02/24 17:33 Source: patient and old records reviewed Mode of arrival: EMS Limitations: no limitations History of Present Illness HPI Narrative: Patient is a 64 y/o male who presents to the ED via EMS with report of alcohol withdrawal. Patient is a poor historian. Has multiple complaints. He reports a long history of alcoholism. States he had been clean from alcohol for 6 months, but began drinking again on his birthday this year. He has been drinking anywhere from a 6 pack to a 30 pack of beer per day. He last drank last night. He states he woke up this morning feeling very unwell. He complains of shakes/tremulousness, nausea, dry heaving, right lower abdominal pain, lower back pain, kidney pain, headache, anxiety. EMS was contacted. Per EMS report, patient had what sounds like a near syncopal episode upon EMS's arrival where he reportedly became bradycardic and lethargic. He then began c/o CP. Patient does admit to having persistent chest pain currently. He states he does not know what is going on with him. Has been admitted for alcohol withdrawal in the past per records. Related Data Home Medications Medication Instructions Recorded Confirmed apixaban 5 mg tablet (Eliquis) 5 mg PO Q12H 06/02/24 06/02/24 Allergies Allergy/AdvReac Type Severity Reaction Status Date / Time No Known Allergies Allergy Verified 08/16/23 14:39 Review of Systems Review of Systems: CONSTITUTIONAL: Denies fever, chills, or sweats. ENT: Denies rhinorrhea, congestion, sore throat. CARDIOVASCULAR: See HPI RESPIRATORY: Denies cough or dyspnea. GASTROINTESTINAL: See HPI MUSCULOSKELETAL: See HPI NEUROLOGIC: See HPI PSYCHIATRIC: See HPI All systems reviewed & are unremarkable except as noted in HPI and below PMFSH Past Medical History Medical History Alcohol abuse Chronic obstructive pulmonary disease Hyperlipidemia Hypertension Nicotine dependence Obstructive sleep apnea Surgical History Surgical History History of orthopedic surgery Bilateral shoulder arthroscopy. Bilateral knee arthroscopy. Wrist surgery. Family History Family History Father Diverticulitis Father from complications Social History Social History Social History: Surrogate medical decision maker: Jennifer Gardner, spouse. Code status: Full code. Smoking packs per day: 2 Smoking cigarettes per day: 40.0 Years smoked: 50 Smoking pack-years: 100.00 Smoking status: Current every day smoker Tobacco type: cigarettes Alcohol intake: current Drinks per week: 90 Alcohol use details: Drinks at least 10 to 12 beers a day. Substance use: never Substance use type: former substance user Do You Feel Safe in your Home?: Yes Lack of Transportation: No Lack of Food: Sometimes True Current Housing: I Have Housing Concerned About Future Housing: No Difficulty Paying Gas/Electric Bills: YES Difficulty Paying for Meds: YES Currently Unemployed: No Education: High School Diploma/GED Difficulty w/ Childcare or Family Care: No Additional living arrangements comments: Lives with spouse in [place]. 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 Spiritual care concerns: No Exam Narrative: GENERAL: Appears older than stated age, mildly disheveled, in mild acute distress. HEAD: Normocephalic, atraumatic. RESPIRATORY: Airway patent, respirations nonlabored. Clear to auscultation bilaterally, no rales, rhonchi, wheezing. CARDIOVASCULAR: Regular rate and rhythm without murmurs, rubs, or gallops. ABD
[2024-06-02 18:10] LABS: Basophils Percent Auto 0.9 % (0.2-1.2); Eosinophils Percent Auto 0.2 % (0-4.4); Hematocrit 47.2 % (42.0-52.0); Hemoglobin 16.2 g/dL (14.0-18.0); Immature Granulocyte Absolute 0.01 K/mm3 (0.00-0.031); Immature Granulocyte Percent A 0.2 % (0-0.5); Lymphocytes Absolute Auto 2.05 K/mm3 (0.9-3.2); Lymphocytes Percent Auto 44.3 % (18.3-44.2); Mean Corpuscular HGB Conc 34.3 g/dl (32-36); Mean Corpuscular Hemoglobin 32.2 pg (26-34); Mean Corpuscular Volume 93.8 fl (80-100); Mean Platelet Volume 10.7 fl (7.4-10.4); Monocytes Absolute Auto 0.5 K/mm3 (0.1-0.6); Monocytes Percent Auto 9.9 % (2.6-8.5); Neutrophils Absolute Auto 2.1 K/mm3 (1.3-6.7); Neutrophils Percent Auto 44.5 % (45.5-73.1); Platelet Count Result 144 k/mm3 (150-375); Red Blood Count 5.03 M/mm3 (4.6-6.20); Red Cell Distribution Width 15.1 % (11.5-14.5); White Blood Count 4.6 K/mm3 (4.5-10.0)
[2024-06-02] MEDS: THIAMINE HCL 200 MG/2 ML VIAL 100 MG IV PUSH (18:15)
[2024-06-02] MEDS: SODIUM CHLORIDE 0.9% IV 1,000 ML 999 ML IV CONT (18:15)
[2024-06-02 18:19] LABS: Alanine Aminotransferase 33 U/L (6-50); Albumin Level 4.9 g/dL (3.5-5.1); Alkaline Phosphatase 141 U/L (38-126); Anion Gap 15 mmol/L (4-12); Aspartate Amino Transferase 50 U/L (17-59); Bilirubin,Total 1.2 mg/dL (0.2-1.3); Blood Urea Nitrogen 6 mg/dL (9-20); Calcium 9.1 mg/dL (8.4-10.2); Carbon Dioxide 25 mmol/L (22-30); Chloride 95 mmol/L (98-107); Estimated CRCL calculation 99 ml/min; Estimated Glomerular Filt Rate > 60; Glucose 107 mg/dL (65-110); INR 1.3; Lipase 71 U/L (23-300); Potassium 4.1 mmol/L (3.4-5.0); Sodium 135 mmol/L (137-145)
[2024-06-02 18:30] LABS: Ethanol < 10 mg/dL (<10)
[2024-06-02 18:31] LABS: Troponin I 0.014 ng/mL (0.000-0.034)
[2024-06-02] MEDS: ACETAMINOPHEN 500 MG TABLET 1000 MG PO (18:40)
[2024-06-02] MEDS: LORazepam INJ (*CRX) 2 MG/ML VIAL IV PUSH ×2 (18:40→20:43)
[2024-06-02 18:41] LABS: Lactic Acid Reflex 2.1 mmol/L (0.7-2.0)
[2024-06-02] MEDS: NICOTINE (*PBKC) 21 MG PATCH 1 PATCH TRANSDERM (18:41)
[2024-06-02 18:45] VITALS: BP 152/119; PULSE 84; RESP 17; O2SAT 99
--- NOTE | 2024-06-02 20:25 | PM.IMHP ---
H&P: HPI History of Present Illness Date/Time: 06/02/24 20:25 Chief Complaint: Alcohol withdrawal and chest pain. Narrative: This is a 64-year-old male smoker with longstanding history of alcohol abuse, hypertension, hyperlipidemia, chronic obstructive pulmonary disease, and sleep apnea who presented to the emergency department via EMS from home for evaluation of alcohol withdrawal symptoms and chest pain. The patient provides the following history. He began drinking again last month after being sober for at least 4 months and he consumes admits to drinking at least a 12 pack of beer each day. He saw Dr. Castillo several weeks ago because he wanted quit drinking and he was given a prescription for clonazepam. He has cut back on his drinking and has been taking the clonazepam however he has run out. Yesterday he drank at least a six-pack of beer with his last drink being sometime in the evening. This morning he was feeling anxious and a bit tremulous and though symptoms have progressed as the day has gone on. He also complains of nonradiating heaviness in the mid chest which has been constant without aggravating or alleviating factors. He denies syncope, near syncope, seizure activity, pleuritic pain, palpitations, abdominal pain, epigastric pain, nausea, vomiting, sweats, edema, and calf pain. In the ED: He was afebrile on arrival with blood pressures as high as 152/119. He is in a sinus rhythm with rates in the 80s low 90s. EKG showed sinus rhythm with incomplete right bundle-branch block. Labs were significant for WBC count 4.6, hemoglobin 16.2, platelet 144, sodium 135, chloride 95, BUN 6, creatinine 0.60, lactic acid 2.1, troponin 0.014, ethyl alcohol level less than 10. Urine drug screen was negative UA was positive for 1+ protein and 1+ ketones. CT of the abdomen and pelvis showed hepatic steatosis and improving left-sided pleural effusion. Chest x-ray showed no acute cardiopulmonary disease. He was given lorazepam 2 mg, thiamine 100 mg, and a L normal saline bolus and he is being admitted in this setting for further treatment of alcohol withdrawal and close monitoring given reports of chest pain. Review of Systems Review of Systems: 12 systems were reviewed and are negative except for as per HPI. [facility] Past Medical History Medical History (Updated 06/02/24 @ 21:58 by Lana Figueroa PA-C) Alcohol abuse Chronic obstructive pulmonary disease Hyperlipidemia Hypertension Nicotine dependence Obstructive sleep apnea Surgical History Surgical History History of orthopedic surgery Bilateral shoulder arthroscopy. Bilateral knee arthroscopy. Wrist surgery. Family History Family History Father Diverticulitis Father from complications Social History Social History Social History: Surrogate medical decision maker: Jennifer Gardner, spouse. Code status: Full code. Smoking packs per day: 2.5 Smoking cigarettes per day: 50.0 Years smoked: 40 Smoking pack-years: 100.00 Smoking status: Current every day smoker Tobacco type: cigarettes Alcohol intake: current Drinks per week: 70 Alcohol use details: Drinks at least 10 to 12 beers a day. Substance use: never Substance use type: former substance user Do You Feel Safe in your Home?: Yes Lack of Transportation: No Lack of Food: Never True Current Housing: I Have Housing Concerned About Future Housing: No Difficulty Paying Gas/Electric Bills: No Difficulty Paying for Meds: No Currently Unemployed: No Education: Decline to Answer Difficulty w/ Childcare or Family Care: No Additional living arrangements comments: Lives with spouse in [place]. 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 Spiritual care concerns: No
--- NOTE | 2024-06-02 20:30 | ECG_ITS ---
Test Date: 2024-06-02 20:40:07 Measurements Intervals [place] Rate: 82 P: 68 [place]: 144 QRS: 38 QRSD: 90 T: 51 QT: 382 QTc: 449 Interpretive Statements SINUS RHYTHM INCOMPLETE RIGHT BUNDLE BRANCH BLOCK BASELINE ARTIFACT- I, II, III, AVR, AVL, AVF, V1-V6 BORDERLINE ECG Compared to ECG 06/02/2024 17:31:07 NO SIGNIFICANT CHANGE Electronically Signed On 06-03-2024 06:38:35 CDT by Alireza Hill D.O.
[2024-06-02] MEDS: NITROGLYCERIN SL 0.4 MG TABLET SUBLINGUAL (20:38)
[2024-06-02 20:45] VITALS: BP 148/88; PULSE 102; RESP 15; O2SAT 96
[2024-06-02 21:02] LABS: Appearance Urine Clear (Clear); Bacteria Urine None Seen /hpf; Bilirubin Urine Negative (Negative); Blood Urine Negative (Negative); Color Urine Yellow (Yellow); Glucose Urine UA Negative (Negative); Ketones Urine 1+ mg/dL (Negative); Leukocyte Esterase Ur Negative LEU/UL (Negative); Nitrate Urine Negative (Negative); Non Pathogenic Casts 0-2; Protein Urine 1+ mg/dL (Negative); RBC Urine 0-2 /hpf (0-2); Specific Grav Ur 1.021 (1.001-1.035); Squamous Epithelial Cell Urine None Seen /hpf (Few); WBC Urine 0-5 /hpf (0-3)
[2024-06-02] MEDS: SODIUM CHLORIDE 0.9% IV 1,000 ML 100 ML IV CONT ×2 (21:06→22:50)
[2024-06-02 21:12] LABS: Amphetamine Screen Urine Negative (Negative); Barbiturate Screen Urine Negative (Negative); Benzodiazepines Screen Urine Negative (Negative); Cannabinoid Screen Urine Negative (Negative); Cocaine Screen Urine Negative (Negative); Methadone Screen Urine Negative (Negative); Opiate Screen Urine Negative (Negative); Phencyclidine Screen Urine Negative (Negative)
[2024-06-02 21:13] LABS: Add Urine Microscopic? YES
[2024-06-02 21:18] LABS: Troponin I 0.018 ng/mL (0.000-0.034)
[2024-06-02 21:27] LABS: Reflex Lactic Acid Yes or No Add Lactic
[2024-06-02 21:55] LABS: Lactic Acid 1.5 mmol/L (0.7-2.0)
[2024-06-02 22:55] VITALS: BP 160/86; PULSE 94; RESP 20; TEMP 36.4; O2SAT 99; BMI 26.7
--- NOTE | 2024-06-02 23:02 | ADMGEN ---
This patient, Baljit Green, was admitted to IMU Room 232-01. Patient/family oriented to hospital policies and general routines including ID bracelet, bed and alarms, visiting hours, pain management, procedures, bathroom and other care routines, personal items, smoking policy, room service/diet, and visiting hours. Information on how to activate the Rapid Response Team has been discussed. Patient/Family are encouraged to report perceived risks to care and to ask questions if they do not understand what they are told or what they should do. Pt arrived to the unit at 2255.
[2024-06-02 23:14] VITALS: PULSE 94
[2024-06-02] MEDS: chlordiazePOXIDE (*CRX) 25 MG CAPSULE PO (23:48)
[2024-06-03] VITALS (13 sets, daily range): BP systolic 126–164; BP diastolic 68–96; PULSE 72–95; RESP 16–20; TEMP 36–37.1; O2SAT 96–99; BMI 26.7
[2024-06-03 00:40] LABS: Troponin I 0.017 ng/mL (0.000-0.034)
[2024-06-03 05:00] LABS: Basophils Percent Auto 0.4 % (0.2-1.2); Eosinophils Percent Auto 0.4 % (0-4.4); Hemoglobin 13.8 g/dL (14.0-18.0); Immature Granulocyte Absolute 0.01 K/mm3 (0.00-0.031); Immature Granulocyte Percent A 0.2 % (0-0.5); Lymphocytes Absolute Auto 1.99 K/mm3 (0.9-3.2); Lymphocytes Percent Auto 44.1 % (18.3-44.2); Mean Corpuscular HGB Conc 33.7 g/dl (32-36); Mean Corpuscular Hemoglobin 32.4 pg (26-34); Mean Corpuscular Volume 96.2 fl (80-100); Mean Platelet Volume 11.1 fl (7.4-10.4); Monocytes Absolute Auto 0.5 K/mm3 (0.1-0.6); Monocytes Percent Auto 10.9 % (2.6-8.5); Platelet Count Result 108 k/mm3 (150-375); Red Blood Count 4.26 M/mm3 (4.6-6.20); Red Cell Distribution Width 15.3 % (11.5-14.5); White Blood Count 4.5 K/mm3 (4.5-10.0)
[2024-06-03 05:10] LABS: Alanine Aminotransferase 28 U/L (6-50); Albumin Level 3.9 g/dL (3.5-5.1); Alkaline Phosphatase 108 U/L (38-126); Anion Gap 7 mmol/L (4-12); Aspartate Amino Transferase 42 U/L (17-59); Bilirubin,Total 1.7 mg/dL (0.2-1.3); Blood Urea Nitrogen 9 mg/dL (9-20); Calcium 8.9 mg/dL (8.4-10.2); Carbon Dioxide 28 mmol/L (22-30); Chloride 101 mmol/L (98-107); Estimated CRCL calculation 99 ml/min; Estimated Glomerular Filt Rate > 60; Glucose 93 mg/dL (65-110); Lipase 52 U/L (23-300); Potassium 3.6 mmol/L (3.4-5.0); Sodium 136 mmol/L (137-145)
[2024-06-03] MEDS: chlordiazePOXIDE (*CRX) 25 MG CAPSULE PO ×4 (07:40→23:55)
[2024-06-03] MEDS: FOLIC ACID 1 MG TABLET PO (08:49)
[2024-06-03] MEDS: THIAMINE HCL 100 MG TABLET PO (08:49)
[2024-06-03] MEDS: ENOXAPARIN 40 MG/0.4 ML SYRINGE SUB-Q (08:49)
[2024-06-03] MEDS: HYDROcodone/acetaminophen (*CRX) 5-325 MG TABLET 1 TAB PO ×2 (12:38→18:37)
[2024-06-03 13:29] LABS: Influenza A QL RT-PCR Negative (Negative); Influenza B QL RT-PCR Negative (Negative); RSV RNA, RT-PCR Negative (Negative); SARS-CoV-2 RNA PCR Negative (Negative)
--- NOTE | 2024-06-03 18:11 | PM.IMPN ---
Progress Note: A&P Assessment and Plan (1) Chest pain: Qualifiers: Chest pain type: unspecified Qualified Code(s): R07.9 - Chest pain, unspecified Code(s): R07.9 - Chest pain, unspecified Status: Acute (2) Alcohol withdrawal: Qualifiers: Complication of substance-induced condition: uncomplicated Qualified Code(s): F10.930 - Alcohol use, unspecified with withdrawal, uncomplicated Code(s): F10.939 - Alcohol use, unspecified with withdrawal, unspecified Status: Acute (3) Chronic obstructive pulmonary disease: Code(s): J44.9 - Chronic obstructive pulmonary disease, unspecified Status: Acute (4) Mild dehydration: Code(s): E86.0 - Dehydration Status: Acute (5) Alcohol withdrawal: Code(s): F10.939 - Alcohol use, unspecified with withdrawal, unspecified Status: Acute (6) Thrombocytopenia: Code(s): D69.6 - Thrombocytopenia, unspecified Status: Acute (7) Nicotine dependence: Code(s): F17.200 - Nicotine dependence, unspecified, uncomplicated Status: Acute Plan H&P via Lana Figueroa PA-C This is a 64-year-old male smoker with longstanding history of alcohol abuse, hypertension, hyperlipidemia, chronic obstructive pulmonary disease, and sleep apnea who presented to the emergency department via EMS from home for evaluation of alcohol withdrawal symptoms and chest pain. The patient provides the following history. He began drinking again last month after being sober for at least 4 months and he consumes admits to drinking at least a 12 pack of beer each day. He saw Dr. Castillo several weeks ago because he wanted quit drinking and he was given a prescription for clonazepam. He has cut back on his drinking and has been taking the clonazepam however he has run out. Yesterday he drank at least a six-pack of beer with his last drink being sometime in the evening. This morning he was feeling anxious and a bit tremulous and though symptoms have progressed as the day has gone on. He also complains of nonradiating heaviness in the mid chest which has been constant without aggravating or alleviating factors. He denies syncope, near syncope, seizure activity, pleuritic pain, palpitations, abdominal pain, epigastric pain, nausea, vomiting, sweats, edema, and calf pain. In the ED: He was afebrile on arrival with blood pressures as high as 152/119. He is in a sinus rhythm with rates in the 80s low 90s. EKG showed sinus rhythm with incomplete right bundle-branch block. Labs were significant for WBC count 4.6, hemoglobin 16.2, platelet 144, sodium 135, chloride 95, BUN 6, creatinine 0.60, lactic acid 2.1, troponin 0.014, ethyl alcohol level less than 10. Urine drug screen was negative UA was positive for 1+ protein and 1+ ketones. CT of the abdomen and pelvis showed hepatic steatosis and improving left-sided pleural effusion. Chest x-ray showed no acute cardiopulmonary disease. He was given lorazepam 2 mg, thiamine 100 mg, and a L normal saline bolus and he is being admitted in this setting for further treatment of alcohol withdrawal and close monitoring given reports of chest pain. ----- Lactic acidosis resolved. Patient quite anxious and he believes he is starting to have diarrhea. Continue Librium 25 mg q.6 hours scheduled. Continue CIWA protocol and p.r.n. Ativan. Heavy discussion about the patient's alcohol use disorder and relapse and educated the patient about his likely demise in the next few years if he continues to abuse alcohol. This was done in an empathetic straightforward manner. The patient is very aware and he wants to quit. Coordination has been consulted for acute rehab but he believes he wants to do this on his own at home. Troponins have been normal. Patient more so complains of generalized body aches. This is likely due to alcohol withdrawal. Quad viral screen negative as well. Continue to monitor and give pain medications p.r.n.. The
[2024-06-04] VITALS (10 sets, daily range): BP systolic 100–142; BP diastolic 48–105; PULSE 71–114; RESP 16–20; TEMP 36.2–36.3; O2SAT 94–100
[2024-06-04 05:10] LABS: Basophils Percent Auto 0.6 % (0.2-1.2); Hematocrit 42.7 % (42.0-52.0); Hemoglobin 14.1 g/dL (14.0-18.0); Immature Granulocyte Absolute 0.01 K/mm3 (0.00-0.031); Immature Granulocyte Percent A 0.3 % (0-0.5); Immature Platelet Fraction Pct 7.4 % (0.9-11.2); Lymphocytes Absolute Auto 1.64 K/mm3 (0.9-3.2); Lymphocytes Percent Auto 53.1 % (18.3-44.2); Mean Platelet Volume 10.5 fl (7.4-10.4); Monocytes Absolute Auto 0.3 K/mm3 (0.1-0.6); Neutrophils Absolute Auto 1.1 K/mm3 (1.3-6.7); Platelet Count Result 103 k/mm3 (150-375); Red Cell Distribution Width 14.9 % (11.5-14.5); White Blood Count 3.1 K/mm3 (4.5-10.0)
[2024-06-04 05:17] LABS: Alanine Aminotransferase 26 U/L (6-50); Albumin Level 3.9 g/dL (3.5-5.1); Alkaline Phosphatase 98 U/L (38-126); Anion Gap 7 mmol/L (4-12); Aspartate Amino Transferase 40 U/L (17-59); Blood Urea Nitrogen 6 mg/dL (9-20); Calcium 9.1 mg/dL (8.4-10.2); Carbon Dioxide 30 mmol/L (22-30); Chloride 100 mmol/L (98-107); Estimated CRCL calculation 116 ml/min; Estimated Glomerular Filt Rate > 60; Glucose 104 mg/dL (65-110); Magnesium 1.9 mg/dL (1.6-2.3); Potassium 3.5 mmol/L (3.4-5.0); Sodium 137 mmol/L (137-145)
[2024-06-04] MEDS: chlordiazePOXIDE (*CRX) 25 MG CAPSULE PO ×4 (05:58→23:37)
[2024-06-04] MEDS: THIAMINE HCL 100 MG TABLET PO (08:56)
[2024-06-04] MEDS: ENOXAPARIN 40 MG/0.4 ML SYRINGE SUB-Q (08:56)
[2024-06-04] MEDS: FOLIC ACID 1 MG TABLET PO (08:56)
[2024-06-04] MEDS: NICOTINE (*PBKC) 21 MG PATCH 1 PATCH TRANSDERM (08:56)
[2024-06-04] MEDS: HYDROcodone/acetaminophen (*CRX) 5-325 MG TABLET 1 TAB PO ×2 (09:00→18:13)
--- NOTE | 2024-06-04 10:25 | PM.IMPN ---
Progress Note: A&P Assessment and Plan (1) Chest pain: Qualifiers: Chest pain type: unspecified Qualified Code(s): R07.9 - Chest pain, unspecified Code(s): R07.9 - Chest pain, unspecified Status: Acute (2) Alcohol withdrawal: Qualifiers: Complication of substance-induced condition: uncomplicated Qualified Code(s): F10.930 - Alcohol use, unspecified with withdrawal, uncomplicated Code(s): F10.939 - Alcohol use, unspecified with withdrawal, unspecified Status: Acute (3) Chronic obstructive pulmonary disease: Code(s): J44.9 - Chronic obstructive pulmonary disease, unspecified Status: Acute (4) Mild dehydration: Code(s): E86.0 - Dehydration Status: Acute (5) Thrombocytopenia: Code(s): D69.6 - Thrombocytopenia, unspecified Status: Acute (6) Nicotine dependence: Code(s): F17.200 - Nicotine dependence, unspecified, uncomplicated Status: Acute Plan This is a 64-year-old male smoker with longstanding history of alcohol abuse, hypertension, hyperlipidemia, chronic obstructive pulmonary disease, and sleep apnea who presented to the emergency department via EMS from home for evaluation of alcohol withdrawal symptoms and chest pain. The patient provides the following history. He began drinking again last month after being sober for at least 4 months and he consumes admits to drinking at least a 12 pack of beer each day. He saw Dr. Castillo several weeks ago because he wanted quit drinking and he was given a prescription for clonazepam. He has cut back on his drinking and has been taking the clonazepam however he has run out. Yesterday he drank at least a six-pack of beer with his last drink being sometime in the evening. This morning he was feeling anxious and a bit tremulous and though symptoms have progressed as the day has gone on. He also complains of nonradiating heaviness in the mid chest which has been constant without aggravating or alleviating factors. He denies syncope, near syncope, seizure activity, pleuritic pain, palpitations, abdominal pain, epigastric pain, nausea, vomiting, sweats, edema, and calf pain. In the ED: He was afebrile on arrival with blood pressures as high as 152/119. He is in a sinus rhythm with rates in the 80s low 90s. EKG showed sinus rhythm with incomplete right bundle-branch block. Labs were significant for WBC count 4.6, hemoglobin 16.2, platelet 144, sodium 135, chloride 95, BUN 6, creatinine 0.60, lactic acid 2.1, troponin 0.014, ethyl alcohol level less than 10. Urine drug screen was negative UA was positive for 1+ protein and 1+ ketones. CT of the abdomen and pelvis showed hepatic steatosis and improving left-sided pleural effusion. Chest x-ray showed no acute cardiopulmonary disease. He was given lorazepam 2 mg, thiamine 100 mg, and a L normal saline bolus and he is being admitted in this setting for further treatment of alcohol withdrawal and close monitoring given reports of chest pain. Since admission, his Lactic acidosis has resolved. Patient quite anxiousand having mild withdrawal symptoms. Continue Librium 25 mg q.6 hours scheduled. Continue CIWA protocol and p.r.n. Ativan. Heavy discussion about the patient's alcohol use disorder and relapse and educated the patient about his likely demise in the next few years if he continues to abuse alcohol. This was done in an empathetic straightforward manner. The patient is very aware and he wants to quit. Coordination has been consulted for acute rehab but he believes he wants to do this on his own at home. Troponins have been normal. Patient more so complains of generalized body aches. This is likely due to alcohol withdrawal. Quad viral screen negative as well. Continue to monitor and give pain medications p.r.n.. The patient has chronic thrombocytopenia and currently is platelets is 108. Likely due to malnutrition/alcoholism. Continue Lovenox for DVT prophylaxis. He is
--- NOTE | 2024-06-04 14:55 | PC.NURSE ---
This patient, Baljit Green, was received from [facility] on 06/04/24 at 1455. Patient/family oriented to unit policies and routines
[2024-06-05] VITALS (9 sets, daily range): BP systolic 105–137; BP diastolic 69–87; PULSE 62–90; RESP 18–20; TEMP 36.3–36.7; O2SAT 94–100
[2024-06-05] MEDS: HYDROcodone/acetaminophen (*CRX) 5-325 MG TABLET 1 TAB PO ×3 (01:23→20:36)
[2024-06-05] MEDS: chlordiazePOXIDE (*CRX) 25 MG CAPSULE PO ×3 (05:06→17:22)
[2024-06-05 06:10] LABS: Basophils Percent Auto 0.7 % (0.2-1.2); Hemoglobin 13.7 g/dL (14.0-18.0); Immature Granulocyte Absolute 0.01 K/mm3 (0.00-0.031); Immature Granulocyte Percent A 0.3 % (0-0.5); Immature Platelet Fraction Pct 8.4 % (0.9-11.2); Lymphocytes Absolute Auto 1.64 K/mm3 (0.9-3.2); Lymphocytes Percent Auto 56.2 % (18.3-44.2); Mean Corpuscular HGB Conc 33.4 g/dl (32-36); Mean Corpuscular Hemoglobin 32.5 pg (26-34); Mean Corpuscular Volume 97.2 fl (80-100); Mean Platelet Volume 10.8 fl (7.4-10.4); Monocytes Absolute Auto 0.3 K/mm3 (0.1-0.6); Monocytes Percent Auto 10.3 % (2.6-8.5); Neutrophils Absolute Auto 0.9 K/mm3 (1.3-6.7); Neutrophils Percent Auto 31.5 % (45.5-73.1); Platelet Count Result 95 k/mm3 (150-375); Red Blood Count 4.22 M/mm3 (4.6-6.20); Red Cell Distribution Width 14.9 % (11.5-14.5); White Blood Count 2.9 K/mm3 (4.5-10.0)
[2024-06-05 06:22] LABS: Alanine Aminotransferase 36 U/L (6-50); Albumin Level 3.8 g/dL (3.5-5.1); Alkaline Phosphatase 99 U/L (38-126); Anion Gap 9 mmol/L (4-12); Aspartate Amino Transferase 56 U/L (17-59); Bilirubin,Total 0.8 mg/dL (0.2-1.3); Blood Urea Nitrogen 7 mg/dL (9-20); Calcium 9.1 mg/dL (8.4-10.2); Carbon Dioxide 27 mmol/L (22-30); Chloride 99 mmol/L (98-107); Estimated CRCL calculation 116 ml/min; Estimated Glomerular Filt Rate > 60; Glucose 113 mg/dL (65-110); Magnesium 1.8 mg/dL (1.6-2.3); Potassium 3.3 mmol/L (3.4-5.0); Sodium 135 mmol/L (137-145)
[2024-06-05 08:17] LABS: Platelet Estimate Slightly Decreased (Adequate)
[2024-06-05 08:18] LABS: Schistocytes None Seen
[2024-06-05] MEDS: POTASSIUM CHLORIDE 20 MEQ ER TABLET 40 MEQ PO (09:34)
[2024-06-05] MEDS: THIAMINE HCL 100 MG TABLET PO (09:34)
[2024-06-05] MEDS: FOLIC ACID 1 MG TABLET PO (09:34)
[2024-06-05] MEDS: NICOTINE (*PBKC) 21 MG PATCH 1 PATCH TRANSDERM (09:35)
[2024-06-05] MEDS: ENOXAPARIN 40 MG/0.4 ML SYRINGE SUB-Q (09:35)
--- NOTE | 2024-06-05 10:57 | PCNFU ---
Nutrition Follow-Up Complete: Inadequate oral intake related to loss of appetite as evidenced by intakes 0-5% since admission Goal: Adequate PO intake at least 75% meals and supplements Patient is progressing towards goal. We will continue current goal. Pt current nutrition is Regular with Ensure Compact BID. Last recorded weight is 78 kg, up from 77.4 kg on admit. Bowel Motility:+BM reported 06/04 Labs Reviewed:Glu 113, Cr 0.5,Na 135, Hgb 13.7,Hct 41.0 Meds Noted:Lovenox,Folic Acid, Thiamine. Skin: WNL Additional Notes: Patient remains on a regular diet with Ensure compact BID. Oral Intake has been fair. Today 20% reported for breakfast. Ensure compact providing an additional 220 kcal and 9 gm protein. PO intake encouraged. Agree with diet orders. Monitoring intakes, weights, labs, supplement tolerance, plan of care Follow up in 3 days.
[2024-06-05] MEDS: FUROSEMIDE INJ 40 MG/4 ML VIAL 20 MG IV PUSH (13:59)
[2024-06-05] MEDS: APIXABAN 5 MG TABLET PO (20:35)
[2024-06-06] VITALS (10 sets, daily range): BP systolic 107–137; BP diastolic 72–94; PULSE 80–120; RESP 19–20; TEMP 36.8–37.1; O2SAT 96–100
[2024-06-06] MEDS: ONDANSETRON INJ 4 MG/2 ML VIAL IV PUSH (01:13)
[2024-06-06] MEDS: chlordiazePOXIDE (*CRX) 25 MG CAPSULE PO ×4 (01:13→17:59)
[2024-06-06] MEDS: LORazepam INJ (*CRX) 2 MG/ML VIAL 1 MG IV PUSH (02:38)
--- NOTE | 2024-06-06 03:51 | PC.NURSE ---
DISCREPANCY NOTED IN [facility] ORDER FOR CIWAS >15. PATIENT CURRENTLY HAS CIWA OF 18; MAR ALLOWS ONLY 1MG DOSING BUT STATES ABLE TO GIVE 2MG PER CIWA SCORE. OLIVER NOTIFIED. ADDITIONAL ORDER PLACED TO COVER CIWAS >15.
[2024-06-06] MEDS: LORazepam INJ (*CRX) 2 MG/ML VIAL IV PUSH (05:12)
[2024-06-06 06:10] LABS: Basophils Percent Auto 0.5 % (0.2-1.2); Hematocrit 44.3 % (42.0-52.0); Hemoglobin 14.8 g/dL (14.0-18.0); Immature Platelet Fraction Pct 10.1 % (0.9-11.2); Lymphocytes Absolute Auto 0.46 K/mm3 (0.9-3.2); Lymphocytes Percent Auto 22.5 % (18.3-44.2); Mean Corpuscular HGB Conc 33.4 g/dl (32-36); Mean Corpuscular Hemoglobin 32.4 pg (26-34); Mean Corpuscular Volume 96.9 fl (80-100); Mean Platelet Volume 11.4 fl (7.4-10.4); Monocytes Absolute Auto 0.2 K/mm3 (0.1-0.6); Monocytes Percent Auto 10.3 % (2.6-8.5); Neutrophils Absolute Auto 1.4 K/mm3 (1.3-6.7); Neutrophils Percent Auto 66.7 % (45.5-73.1); Platelet Count Result 91 k/mm3 (150-375); Red Blood Count 4.57 M/mm3 (4.6-6.20); Red Cell Distribution Width 15.1 % (11.5-14.5)
[2024-06-06 06:17] LABS: Alanine Aminotransferase 78 U/L (6-50); Albumin Level 4.1 g/dL (3.5-5.1); Alkaline Phosphatase 94 U/L (38-126); Anion Gap 8 mmol/L (4-12); Aspartate Amino Transferase 110 U/L (17-59); Blood Urea Nitrogen 8 mg/dL (9-20); Carbon Dioxide 28 mmol/L (22-30); Chloride 97 mmol/L (98-107); Estimated CRCL calculation 86 ml/min; Estimated Glomerular Filt Rate > 60; Glucose 144 mg/dL (65-110); Magnesium 1.6 mg/dL (1.6-2.3); Potassium 3.6 mmol/L (3.4-5.0); Sodium 133 mmol/L (137-145)
[2024-06-06] MEDS: NICOTINE (*PBKC) 21 MG PATCH 1 PATCH TRANSDERM (09:18)
[2024-06-06] MEDS: THIAMINE HCL 100 MG TABLET PO (09:18)
[2024-06-06] MEDS: FOLIC ACID 1 MG TABLET PO (09:18)
[2024-06-06] MEDS: APIXABAN 5 MG TABLET PO ×2 (09:18→20:53)
[2024-06-06] MEDS: SODIUM CHLORIDE 0.9% IV 1,000 ML 75 ML IV CONT (17:40)
[2024-06-06] MEDS: HYDROcodone/acetaminophen (*CRX) 5-325 MG TABLET 1 TAB PO (20:53)
[2024-06-06] MEDS: diphenhydrAMINE HCl CAP 25 MG CAPSULE PO (22:05)
[2024-06-07] VITALS (10 sets, daily range): BP systolic 100–116; BP diastolic 69–87; PULSE 71–92; RESP 20; TEMP 36.2–36.5; O2SAT 98–100
[2024-06-07] MEDS: chlordiazePOXIDE (*CRX) 25 MG CAPSULE PO ×5 (00:38→23:28)
[2024-06-07 05:50] LABS: Basophils Percent Auto 0.5 % (0.2-1.2); Eosinophils Percent Auto 0.5 % (0-4.4); Hematocrit 42.3 % (42.0-52.0); Immature Granulocyte Absolute 0.01 K/mm3 (0.00-0.031); Immature Granulocyte Percent A 0.2 % (0-0.5); Immature Platelet Fraction Pct 11.3 % (0.9-11.2); Lymphocytes Percent Auto 41.4 % (18.3-44.2); Mean Corpuscular HGB Conc 33.1 g/dl (32-36); Mean Corpuscular Volume 96.8 fl (80-100); Mean Platelet Volume 11.4 fl (7.4-10.4); Monocytes Absolute Auto 0.7 K/mm3 (0.1-0.6); Monocytes Percent Auto 16.1 % (2.6-8.5); Neutrophils Absolute Auto 1.7 K/mm3 (1.3-6.7); Neutrophils Percent Auto 41.3 % (45.5-73.1); Platelet Count Result 99 k/mm3 (150-375); Red Blood Count 4.37 M/mm3 (4.6-6.20); White Blood Count 4.1 K/mm3 (4.5-10.0)
[2024-06-07 06:04] LABS: Alanine Aminotransferase 93 U/L (6-50); Albumin Level 3.7 g/dL (3.5-5.1); Alkaline Phosphatase 78 U/L (38-126); Anion Gap 9 mmol/L (4-12); Aspartate Amino Transferase 104 U/L (17-59); Bilirubin,Total 0.5 mg/dL (0.2-1.3); Blood Urea Nitrogen 10 mg/dL (9-20); Calcium 8.7 mg/dL (8.4-10.2); Carbon Dioxide 24 mmol/L (22-30); Chloride 100 mmol/L (98-107); Estimated CRCL calculation 99 ml/min; Estimated Glomerular Filt Rate > 60; Glucose 107 mg/dL (65-110); Magnesium 1.8 mg/dL (1.6-2.3); Potassium 3.2 mmol/L (3.4-5.0); Sodium 133 mmol/L (137-145)
[2024-06-07] MEDS: NICOTINE (*PBKC) 21 MG PATCH 1 PATCH TRANSDERM (08:34)
[2024-06-07] MEDS: THIAMINE HCL 100 MG TABLET PO (08:34)
[2024-06-07] MEDS: FOLIC ACID 1 MG TABLET PO (08:34)
[2024-06-07] MEDS: SODIUM CHLORIDE 0.9% IV 1,000 ML 75 ML IV CONT ×2 (08:34→20:25)
[2024-06-07] MEDS: APIXABAN 5 MG TABLET PO ×2 (08:34→20:24)
[2024-06-07] MEDS: POTASSIUM CHLORIDE 20 MEQ ER TABLET 40 MEQ PO (11:16)
[2024-06-07] MEDS: HYDROcodone/acetaminophen (*CRX) 5-325 MG TABLET 1 TAB PO ×2 (11:16→15:38)
[2024-06-07] MEDS: ACETAMINOPHEN 325 MG TABLET 650 MG PO (14:29)
[2024-06-07] MEDS: hydrOXYzine HCL 25 MG TABLET PO ×2 (16:38→23:28)
[2024-06-07] MEDS: clonazePAM (*CRX) 0.5 MG TABLET PO (20:24)
[2024-06-08] VITALS (8 sets, daily range): BP systolic 139–145; BP diastolic 70–88; PULSE 70–82; RESP 16–20; TEMP 36.1–36.2; O2SAT 97–100
[2024-06-08] MEDS: ACETAMINOPHEN 325 MG TABLET 650 MG PO (02:56)
[2024-06-08 05:23] LABS: Basophils Percent Auto 0.8 % (0.2-1.2); Hematocrit 37.2 % (42.0-52.0); Hemoglobin 12.5 g/dL (14.0-18.0); Immature Granulocyte Absolute 0.01 K/mm3 (0.00-0.031); Immature Granulocyte Percent A 0.3 % (0-0.5); Lymphocytes Absolute Auto 1.84 K/mm3 (0.9-3.2); Lymphocytes Percent Auto 46.9 % (18.3-44.2); Mean Corpuscular HGB Conc 33.6 g/dl (32-36); Mean Corpuscular Volume 98.2 fl (80-100); Mean Platelet Volume 11.4 fl (7.4-10.4); Monocytes Absolute Auto 0.6 K/mm3 (0.1-0.6); Monocytes Percent Auto 15.6 % (2.6-8.5); Neutrophils Absolute Auto 1.4 K/mm3 (1.3-6.7); Neutrophils Percent Auto 35.4 % (45.5-73.1); Platelet Count Result 96 k/mm3 (150-375); Red Blood Count 3.79 M/mm3 (4.6-6.20); Red Cell Distribution Width 15.1 % (11.5-14.5); White Blood Count 3.9 K/mm3 (4.5-10.0)
[2024-06-08 05:32] LABS: Alanine Aminotransferase 72 U/L (6-50); Albumin Level 3.2 g/dL (3.5-5.1); Alkaline Phosphatase 88 U/L (38-126); Anion Gap 7 mmol/L (4-12); Aspartate Amino Transferase 70 U/L (17-59); Bilirubin,Total 0.2 mg/dL (0.2-1.3); Blood Urea Nitrogen 9 mg/dL (9-20); Calcium 8.6 mg/dL (8.4-10.2); Carbon Dioxide 24 mmol/L (22-30); Chloride 105 mmol/L (98-107); Estimated CRCL calculation 99 ml/min; Estimated Glomerular Filt Rate > 60; Glucose 134 mg/dL (65-110); Potassium 3.6 mmol/L (3.4-5.0); Sodium 136 mmol/L (137-145)
[2024-06-08] MEDS: chlordiazePOXIDE (*CRX) 25 MG CAPSULE PO ×2 (05:58→12:34)
[2024-06-08] MEDS: clonazePAM (*CRX) 0.5 MG TABLET PO ×2 (08:43→21:23)
[2024-06-08] MEDS: NICOTINE (*PBKC) 21 MG PATCH 1 PATCH TRANSDERM (08:43)
[2024-06-08] MEDS: APIXABAN 5 MG TABLET PO ×2 (08:43→21:23)
[2024-06-08] MEDS: THIAMINE HCL 100 MG TABLET PO (08:43)
[2024-06-08] MEDS: FOLIC ACID 1 MG TABLET PO (08:43)
--- NOTE | 2024-06-08 09:16 | PCNFU ---
Nutrition Follow-Up Complete: Inadequate oral intake related to loss of appetite as evidenced by intakes 0-5% since admission Adequate PO intake at least 75% meals and supplements - progressing to goal. Average intakes ~45%, improved. Continue with same goal Goal: Pt current nutrition is Regular diet, Ensure Compact BID for additional 220 kcal and 9 g protein each. Nutrition recommendation: No new nutrition recommendations. Continue with current nutrition care plan and orders. Agree with orders. Last recorded weight is 81 kg. Up from 77.4kg at admission. Bowel Motility: Last BM 06/04/24; pt may benefit from bowel regimen Labs Reviewed: Hgb 12.5, Hct 37.2, Alb 3.2, Cre 0.6, Glu 136 Meds Noted: Eliquis, zofran, folic acid, thiamine Skin: No skin issues Additional Notes: Follow up for poor intake. Pt intakes improved somewhat, still refusing some meals. Weight up +8 lb since admission. Agree with current orders Monitoring intakes, weights, labs, supplement tolerance, plan of care Follow up in 5 days
[2024-06-08] MEDS: HYDROcodone/acetaminophen (*CRX) 5-325 MG TABLET 1 TAB PO (17:52)
[2024-06-09] VITALS: PULSE 71
[2024-06-09 04:00] VITALS: PULSE 69
[2024-06-09 06:00] VITALS: BP 121/79; PULSE 76; RESP 18; TEMP 36.3; O2SAT 99
[2024-06-09 08:00] VITALS: PULSE 68
[2024-06-09] MEDS: NICOTINE (*PBKC) 21 MG PATCH 1 PATCH TRANSDERM (08:18)
[2024-06-09] MEDS: APIXABAN 5 MG TABLET PO (08:19)
[2024-06-09] MEDS: clonazePAM (*CRX) 0.5 MG TABLET PO (08:19)
[2024-06-09] MEDS: FOLIC ACID 1 MG TABLET PO (08:19)
[2024-06-09] MEDS: THIAMINE HCL 100 MG TABLET PO (08:19)
--- NOTE | 2024-06-09 10:10 | PC.NURSE ---
RN spoke with spouse via telephone and gave update on patient
--- NOTE | 2024-06-09 11:57 | PM.DS ---
DS: Admitting Diagnosis Discharge Date 06/09/2024 Admitting Diagnosis Alcohol withdrawal DS: Discharge Diagnosis Discharge Diagnosis (1) Chest pain: Qualifiers: Chest pain type: unspecified Qualified Code(s): R07.9 - Chest pain, unspecified Code(s): R07.9 - Chest pain, unspecified Status: Acute (2) Alcohol withdrawal: Qualifiers: Complication of substance-induced condition: uncomplicated Qualified Code(s): F10.930 - Alcohol use, unspecified with withdrawal, uncomplicated Code(s): F10.939 - Alcohol use, unspecified with withdrawal, unspecified Status: Acute (3) Chronic obstructive pulmonary disease: Code(s): J44.9 - Chronic obstructive pulmonary disease, unspecified Status: Acute (4) Mild dehydration: Code(s): E86.0 - Dehydration Status: Acute (5) Thrombocytopenia: Code(s): D69.6 - Thrombocytopenia, unspecified Status: Acute (6) Nicotine dependence: Code(s): F17.200 - Nicotine dependence, unspecified, uncomplicated Status: Acute DS: Summary Hospital Course Hospital Course: This is a 64-year-old male smoker with longstanding history of alcohol abuse, hypertension, hyperlipidemia, chronic obstructive pulmonary disease, and sleep apnea who presented to the emergency department via EMS from home for evaluation of alcohol withdrawal symptoms and chest pain. The patient provides the following history. He began drinking again last month after being sober for at least 4 months and he consumes admits to drinking at least a 12 pack of beer each day. He saw Dr. Castillo several weeks ago because he wanted quit drinking and he was given a prescription for clonazepam. He has cut back on his drinking and has been taking the clonazepam however he has run out. Yesterday he drank at least a six-pack of beer with his last drink being sometime in the evening. This morning he was feeling anxious and a bit tremulous and though symptoms have progressed as the day has gone on. He also complains of nonradiating heaviness in the mid chest which has been constant without aggravating or alleviating factors. He denies syncope, near syncope, seizure activity, pleuritic pain, palpitations, abdominal pain, epigastric pain, nausea, vomiting, sweats, edema, and calf pain. In the ED: He was afebrile on arrival with blood pressures as high as 152/119. He is in a sinus rhythm with rates in the 80s low 90s. EKG showed sinus rhythm with incomplete right bundle-branch block. Labs were significant for WBC count 4.6, hemoglobin 16.2, platelet 144, sodium 135, chloride 95, BUN 6, creatinine 0.60, lactic acid 2.1, troponin 0.014, ethyl alcohol level less than 10. Urine drug screen was negative UA was positive for 1+ protein and 1+ ketones. CT of the abdomen and pelvis showed hepatic steatosis and improving left-sided pleural effusion. Chest x-ray showed no acute cardiopulmonary disease. He was given lorazepam 2 mg, thiamine 100 mg, and a L normal saline bolus and he is being admitted in this setting for further treatment of alcohol withdrawal and close monitoring given reports of chest pain. Since admission, his Lactic acidosis has resolved. Patient quite anxiousand having mild withdrawal symptoms. Continue Librium 25 mg q.6 hours scheduled. Continue CIWA protocol and p.r.n. Ativan. Heavy discussion about the patient's alcohol use disorder and relapse and educated the patient about his likely demise in the next few years if he continues to abuse alcohol. This was done in an empathetic straightforward manner. The patient is very aware and he wants to quit. Coordination has been consulted for acute rehab but he believes he wants to do this on his own at home. He refused home health care as well. He was switched to clonazepam during the hospital stay for his anxiety and alcohol withdrawal. He will continue to follow-up with PCP with regard to this. Troponins have been normal. Patient more
== END 2024-06-09 12:45 | disposition home or self-care (01) | DRG 775 ==
LOC: ANHED 18:56 → ANHIMU 22:20 → ANH3MED 06-04 14:45
PROVIDERS: Emergency Medicine; General Practice; Physician Assistant; Admitting Provider Internal Medicine; Emergency Provider Physician Assistant; PCP Internal Medicine; Visit Provider Internal Medicine
DX: F10.239 Alcohol dependence with withdrawal, unspecified (principal); E86.0 Dehydration; R07.9 Chest pain, unspecified; D69.6 Thrombocytopenia, unspecified; E78.5 Hyperlipidemia, unspecified; G47.33 Obstructive sleep apnea (adult) (pediatric); M54.50 Low back pain, unspecified; F17.210 Nicotine dependence, cigarettes, uncomplicated; I10 Essential (primary) hypertension; J44.9 Chronic obstructive pulmonary disease, unspecified; K76.0 Fatty (change of) liver, not elsewhere classified; Z20.822 Contact with and (suspected) exposure to COVID-19; Z79.01 Long term (current) use of anticoagulants
CPT/HCPCS: 36415; 70496; 70498; 71045; 71250; 72100; 72220; 74176; 74177; 80053; 80307; 81001; 83605; 83690; 83735; 84484; 85025; 85055; 85610; 85730; 87637; 93005; 96361; 96372; 96374; 96375; 96376; 97110; 97116; 97161; 97165; 97530; 97535; 99285; A9270; G0378; J1650; J1940; J2060; J2405; J3411; J7030; Q9967

== ENCOUNTER 2025-10-28 20:50 | Emergency (ER) | payer SELFPAY ==
--- NOTE | ~2025-10-28 | XR_ITS ---
XR chest 1V portable INDICATION:wheezing, SOB . REFERENCE: None FINDINGS: A single AP of the chest demonstrates normal heart size. The lungs are clear. There is no evidence of pneumothorax or pleural effusion. IMPRESSION: No acute pulmonary findings. Reviewed, dictated and finalized at location S. UTER INSTALLER
--- NOTE | ~2025-10-28 | CT_ITS ---
CT chest abdomen pelvis w con HISTORY: chest pain, abdominal pain . COMPARISON: None. TECHNIQUE: Axial images of the chest, abdomen and pelvis were obtained without and with infusion of 100 Isovue 300. FINDINGS: CT CHEST: The examination demonstrates bilateral lower lobe atelectasis or consolidation with small pleural effusions. No pathologically enlarged hilar or mediastinal lymphadenopathy is seen. Cardiac size and mediastinal configuration are normal in appearance. The pulmonary artery and thoracic aorta are normal in caliber and patency. Osseous structures are intact. The visualized organs of the upper abdomen are unremarkable. IMPRESSION: Bilateral lower lobe atelectasis and/or consolidation with small pleural effusions are noted. No pathologic enhancement is noted. No pathologically enlarged mediastinal lymphadenopathy is noted. CT abdomen and pelvis with contrast: The liver parenchyma is unremarkable. No intrahepatic mass or ductal dilatation is evident. The gallbladder is unremarkable. The pancreas and spleen are normal in appearance. The adrenal glands are symmetric in size. The kidneys demonstrate symmetric uptake of contrast. No cystic mass is evident. There is no solid mass. There is no hydronephrosis. The stomach and bowel loops are unremarkable. The bladder and rectum are normal. No free intraperitoneal fluid or air is evident. There is no significant retroperitoneal lymphadenopathy. The aorta, visceral vessels and renal arteries demonstrate normal caliber and patency. The lower thoracic and lumbar vertebrae are in normal alignment. IMPRESSION: No acute abnormality is noted in the abdomen and pelvis. All CT scans at this facility are performed using low dose modulation techniques as appropriate to perform exam including the following: automated exposure control; use of iterative reconstruction technique; adjustment of the mA and/or kV according to patient size (this includes techniques or standardized protocols for targeted exams where dose is matched to indication/reason for exam) Reviewed, dictated and finalized at location S. TOLOGY ONCOLOGY CONSULTANT IMPRESSION: Bilateral lower lobe atelectasis and/or consolidation with small pleural effusi ons are noted. No pathologic enhancement is noted. No pathologically enlarged mediastinal lymphadenopathy is noted. CT abdomen and pelvis with contrast: The liver parenchyma is unremarkable. No intrahepatic mass or ductal dilatation is evident. The gallbladder is unremarkable. The pancreas and spleen are lani l in appearance. The adrenal glands are symmetric in size. The kidneys demonstrate symmetric uptake of contrast. No cystic mass is evident . There is no solid mass. There is no hydronephrosis. The stomach and bowel loops are unremarkable. The bladder and rectum are normal. No free intraperitoneal fluid or air is evid ent. There is no significant retroperitoneal lymphadenopathy. The aorta, visceral vessels and renal arteries demonstrate normal caliber and p atency. The lower thoracic and lumbar vertebrae are in normal alignment. IMPRESSION: No acute abnormality is noted in the abdomen and pelvis. All CT scans at this facility are performed using low dose modulation techniqu es as appropriate to perform exam including the following: automated exposure c ontrol; use of iterative reconstruction technique; adjustment of the mA and/or kV according to patient size (this includes techniques or standardized protocol s for targeted exams where dose is matched to indication/reason for exam)
[2025-10-28 20:50] VITALS: BP 151/84; PULSE 86; RESP 16; O2SAT 99
--- NOTE | 2025-10-28 21:13 | ED.ABDPAIN ---
HPI - Abdominal Pain General Chief Complaint: Abdominal Pain Stated Complaint: ABD PAIN; RECENT ADMIT FOR ETOH W/D Time Seen by Provider: 10/28/25 20:55 History of Present Illness HPI narrative: Patient is a 65-year-old male who presents to the ER with abdominal pain. He reports he drank alcohol every day for 50 years, but stopped for approximately 15 days. Patient reports his mom ?last week and he started drinking again. He went on to report he has not drank alcohol in 12 days and says I am not going to drink anymore. At time of examination, patient endorses wheezing, shortness of breath, abdominal pain. He reports he went to [facility] yesterday, where they wanted to admit him, but he left against medical advice. Patient denies any suicidal or homicidal ideation. He reports reports he did not take his Eliquis this morning because I just decided to give up. Patient denies any recent fevers, chest pain, or urinary symptoms. His medical chart indicates he has a history of COPD and has been admitted multiple times for alcohol abuse. Patient reports he is on Eliquis due to a clot. Related Data Home Medications ?Medication ?Instructions ?Recorded ?Confirmed ?Last Taken ?Type apixaban 5 mg tablet (Eliquis) 5 mg PO Q12H 06/02/24 06/02/24 Unknown History Allergies Allergy/AdvReac Type Severity Reaction Status Date / Time No Known Allergies Allergy Verified 08/16/23 14:39 Review of Systems Review of Systems: All systems reviewed & are unremarkable except as noted in HPI and below PMFSH Past Medical History Medical History Obstructive sleep apnea Chronic obstructive pulmonary disease Nicotine dependence Alcohol abuse Hyperlipidemia Hypertension Surgical History Surgical History History of orthopedic surgery Bilateral shoulder arthroscopy. Bilateral knee arthroscopy. Wrist surgery. Family History Family History Father Diverticulitis Father from complications Social History Social History Social History: Surrogate medical decision maker: Jennifer Gardner, spouse. Code status: Full code. Smoking packs per day: 2 Smoking cigarettes per day: 40.0 Years smoked: 50 Smoking pack-years: 100.00 Smoking status: Current every day smoker Tobacco type: cigarettes Alcohol intake: current Drinks per week: 90 Alcohol use details: Drinks at least 10 to 12 beers a day. Substance use: never Substance use type: former substance user Lack of Transportation: No Lack of Food: Sometimes True Current Housing: I Have Housing Concerned About Future Housing: No Difficulty Paying Gas/Electric Bills: YES Difficulty Paying for Meds: YES Currently Unemployed: No Education: High School Diploma/GED Difficulty w/ Childcare or Family Care: No Additional living arrangements comments: Lives with spouse in [place]. 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 Spiritual care concerns: No Exam Narrative: GENERAL: Ill appearing, obese, non-toxic, in no acute distress. HEAD: Normocephalic, atraumatic. PERRLA, slight yellowing of sclera NECK: Supple. No adenopathy, no masses. RESPIRATORY: Airway patent, respirations mildly labored. + wheezing both lobes CARDIOVASCULAR: Regular rate and rhythm without murmurs, rubs, or gallops. Peripheral pulses 2+ and equal bilaterally. ABDOMINAL: Soft, nontender, + distended. Normoactive BS. MUSCULOSKELETAL: Moves all extremities. Strength/ROM intact without gross deformities. SKIN: Warm, dry, normal color. No rashes. NEURO: A&O X3. Speech clear. Cranial nerves II-XII intact. No ataxic movements. PSYCHIATRIC: Tearful. Course Vital Signs Vital signs: Vital Signs Pulse Rate 86 10/28/25 20:50 Respiratory Rate 16 10/28/25 20:50 Blood Pressure 151/84 H 10/28/25 20:50 Pulse Oximetry 99 10/28/25 20:50 Oxygen Delivery Room Air 10/28/25 20:50 Pulse Rate 88 10/28/25 22:15 Respiratory Rate 18 10/28/25 22:15 Blood Pressure 145/66 H 10/28/25 22:15 Pulse Oximetry 98 10/28/25 22:15 Oxygen Delivery Room Air 10/28/25 20:50 MDM MDM Narrative Medical decision making narrative: Patient is a 65-year-old male who presents to the ER with abdominal pain. He reports he drank alcohol every day for 50 years, but stopped for approximately 15 days. Patient reports his mom ?last week and he started drinking again. He went on to report he has not drank alcohol in 12 days and says I am not going to drink anymore. At time of examination, patient endorses wheezing, shortness of breath, abdominal pain. He reports he went to [facility] yesterday, where they wanted to admit him, but he left against medical advice. Patient denies any suicidal or homicidal ideation. He reports reports he did not take his Eliquis this morning because I just decided to give up. Patient denies any recent fevers, chest pain, or urinary symptoms. His medical chart indicates he has a history of COPD and he has been admitted multiple times for alcohol abuse. Patient reports he is on Eliquis due to a clot. Patient reports his primary care provider has provided a referral for him to go to a rehabilitation program in [place]. He reports he was hoping EMS with take him to [place] so he could start his program tonight. Labs Ordered: CBC, CMP, D-dimer, ethanol, PTT, INR, lactic acid, lipase, UA, UDS, proBNP Imaging Ordered: CT chest/abdomen/pelvis scan, chest x-ray Medications Ordered: Results: Patient's CT scan indicates Bilateral lower lobe atelectasis and/or consolidation with small pleural effusions are noted. No pathologic enhancement is noted. No pathologically enlarged mediastinal lymphadenopathy is noted. No acute abnormality is noted in the abdomen and pelvis. Risks: CIWA: 3 CIWA-Ar for Alcohol Withdrawal from [facility] on 10/29/2025 All calculations should be rechecked by clinician prior to use RESULT SUMMARY: 3 points Patients with scores <= typically do not require medication for withdrawal. INPUTS: Nausea/vomiting ?> 0 = No nausea and no vomiting Tremor ?> 1 = Not visible, but can be felt fingertip to fingertip Paroxysmal sweats ?> 0 = No sweat visible Anxiety ?> 1 = Mildly anxious Agitation ?> 1 = Somewhat more activity than normal activity Tactile disturbances ?> 0 = None Auditory disturbances ?> 0 = Not present Visual disturbances ?> 0 = Not present Headache/fullness in head ?> 0 = Not Present Orientation/clouding of sensorium ?> 0 = Oriented, can do serial additions Diagnosis: Elevated liver enzymes, alcohol abuse * patient endorses a recent history liver failure. Patient Education/Shared MDM: Patient continues to be alert and oriented x4. He denies any pain at time of reexamination. Patient continues to reports he wants to go to [place] for rehabilitation care. Results of lab work and imaging shared with patient. It was explained the were no emergent conditions requiring patient to be hospitalized at this time. Patient strongly advised to maintain hydration status and take his regularly schedule medications upon discharge and proceed to the rehabilitation center of his choice tomorrow. He will not be discharged home with any new prescriptions but will be given a dose of Valium here in the ER to help relieve his anxiety (pt request). Strict return precautions provided. Patient verbalized understanding and is in agreement with plan. Vital signs stable at time of discharge. All questions answered. Differential Diagnosis Differential Diagnosis: Liver cirrhosis, alcohol intoxication, alcohol withdrawal, urinary tract infection Lab Data MDM Lab Attestation statement: I personally reviewed the patient's lab results. 10/28/25 21:00 10/28/25 21:00 Labs: Lab Results 10/28/25 10/28/25 Range/Units 21:00 22:52 WBC 7.4 (4.5-10.0) K/mm3 RBC 4.27 L (4.6-6.20) M/mm3 Hgb 15.1 (14.0-18.0) g/dL Hct 45.3 (42.0-52.0) % MCV 106.1 H (80-100) fl MCH 35.4 H (26-34) pg MCHC 33.3 (32-36) g/dl RDW 13.3 (11.5-14.5) % Plt Count 188 D (150-375) k/mm3 MPV 10.9 H (7.4-10.4) fl Immature Gran % (Auto) 0.4 (0-0.5) % Neut % (Auto) 40.0 L (45.5-73.1) % Lymph % (Auto) 42.9 (18.3-44.2) % Grand % (Auto) 16.0 H (2.6-8.5) % Eos % (Auto) 0.4 (0-4.4) % Baso % (Auto) 0.3 (0.2-1.2) % Lymph # (Auto) 3.16 (0.9-3.2) K/mm3 Grand # (Auto) 1.2 H (0.1-0.6) K/mm3 Eos # (Auto) 0.0 (0-0.3) K/mm3 Baso # (Auto) 0.0 (0.0-0.1) K/mm3 Abs Immat Gran (auto) 0.03 (0.00-0.031) K/mm3 Absolute Neuts (auto) 2.9 (1.3-6.7) K/mm3 Absolute Nucleated RBC 0.000 (0.0-0.012) K/mm3 Nucleated RBC % 0.0 (0.0-0.2) % PT 16.6 H (11.1-14.7) Seconds INR 1.3 APTT 33.1 (22.3-36.8) Seconds D-Dimer 0.45 (<0.48) ug/mL Sodium 140 (137-145) mmol/L Potassium 3.5 (3.4-5.0) mmol/L Chloride 103 (98-107) mmol/L Carbon Dioxide 30 (22-30) mmol/L Anion Gap 7 (4-12) mmol/L BUN 18 (9-20) mg/dL Creatinine 0.79 (0.7-1.3) mg/dL Estim Creat Clear Calc 96 ml/min Estimated GFR > 60 (59 - ) Glucose 101 (65-110) mg/dL Lactic Acid 1.2 (0.7-2.0) mmol/L Calcium 9.7 (8.4-10.2) mg/dL Total Bilirubin 0.7 (0.2-1.3) mg/dL AST 188 H (17-59) U/L ALT 252 H (6-50) U/L Alkaline Phosphatase 104 (38-126) U/L NT-Pro-B Natriuret Pep 183 H (19.9-100) pg/mL Total Protein 7.6 (6.3-8.2) g/dL Albumin 4.0 (3.5-5.1) g/dL Lipase 344 H (23-300) U/L Urine Color Yellow (Yellow) Urine Appearance Clear (Clear) Urine pH 5.5 (5.0-9.0) Ur Specific Slater 1.041 H (1.001-1.035) Urine Protein Negative (Negative) mg/dL Urine Glucose (UA) Negative (Negative) mg/dL Urine Ketones Negative (Negative) mg/dL Ur Blood (Man) Negative (Negative) Urine Nitrate Negative (Negative) Urine Bilirubin Negative (Negative) Urine Urobilinogen 1.0 (<2.0) mg/dL Leukocyte Esterase Rfl Negative (Negative) LAUREL/UL Urine Opiates Screen Negative (Negative) Urine Methadone Screen Negative (Negative) Ur Barbiturates Screen Negative (Negative) Ur Phencyclidine Scrn Negative (Negative) Ur Amphetamine Screen Negative (Negative) U Benzodiazepines Scrn Positive A (Negative) Urine Cocaine Screen Negative (Negative) U Cannabinoids Screen Negative (Negative) Ethyl Alcohol < 10 (<10) mg/dL Imaging Data Attestation: I personally reviewed and interpreted this imaging study as follows: Radiologist's impression: ITS Impressions Chest X-Ray 10/28/25 21:50 IMPRESSION: No acute pulmonary findings. Chest/Abdomen/Pelvis CT 10/28/25 22:02 IMPRESSION: Bilateral lower lobe atelectasis and/or consolidation with small pleural effusions are noted. No pathologic enhancement is noted. No pathologically enlarged mediastinal lymphadenopathy is noted. CT abdomen and pelvis with contrast: The liver parenchyma is unremarkable. No intrahepatic mass or ductal dilatation is evident. The gallbladder is unremarkable. The pancreas and spleen are normal in appearance. The adrenal glands are symmetric in size. The kidneys demonstrate symmetric uptake of contrast. No cystic mass is evident. There is no solid mass. There is no hydronephrosis. The stomach and bowel loops are unremarkable. The bladder and rectum are normal. No free intraperitoneal fluid or air is evident. There is no significant retroperitoneal lymphadenopathy. The aorta, visceral vessels and renal arteries demonstrate normal caliber and patency. The lower thoracic and lumbar vertebrae are in normal alignment. IMPRESSION: No acute abnormality is noted in the abdomen and pelvis. All CT scans at this facility are performed using low dose modulation techniques as appropriate to perform exam including the following: automated exposure control; use of iterative reconstruction technique; adjustment of the mA and/or kV according to patient size (this includes techniques or standardized protocols for targeted exams where dose is matched to indication/reason for exam) Discharge Plan Discharge Clinical Impression: Alcohol abuse, Elevated LFTs, Anxiety Patient Disposition: Home Condition: Guarded Prognosis Instructions: Antibiotic Form, Alcohol Dependence (ED) Additional Instructions: Your work up was very reassuring here in the ER! Please return to the ER with any worsening symptoms. Follow-up with your primary care provider as soon as possible for further evaluation. As discussed with your PCP, please proceed to the Rehabilitation Center of your choice tomorrow. Take all medications as prescribed, including regularly scheduled medications. Patient Language: Turkmen Prescriptions: No Action Eliquis 5 mg Tablet 5 mg PO Q12H clonazepam 0.5 mg Tablet 0.5 mg PO Q12HR Qty: 30 0RF thiamine HCl (vitamin B1) [Vitamin B-1] 100 mg Tablet 100 mg PO QAM Qty: 30 0RF Follow-up/Referrals: Jonathan,Kam Handy MD [Primary Care Provider] Time of Disposition: 23:44
[2025-10-28 21:14] LABS: Hematocrit 45.3 % (42.0-52.0); Hemoglobin 15.1 g/dL (14.0-18.0); Immature Granulocyte Percent A 0.4 % (0-0.5); Lymphocytes Absolute Auto 3.16 K/mm3 (0.9-3.2); Mean Corpuscular HGB Conc 33.3 g/dl (32-36); Mean Corpuscular Hemoglobin 35.4 pg (26-34); Mean Corpuscular Volume 106.1 fl (80-100); Nucleated Red Blood Cells Absolute Auto 0.000 K/mm3 (0.0-0.012); Nucleated Red Blood Cells Perc 0.0 % (0.0-0.2); Platelet Count Result 188 k/mm3 (150-375); Red Blood Count 4.27 M/mm3 (4.6-6.20); White Blood Count 7.4 K/mm3 (4.5-10.0)
--- NOTE | 2025-10-28 21:15 | ECG_ITS ---
Test Date: 2025-10-28 21:24:36 Measurements Intervals [place] Rate: 77 P: 35 GA: 125 QRS: 33 QRSD: 97 T: 49 QT: 405 QTc: 461 Interpretive Statements SINUS RHYTHM INCOMPLETE RIGHT BUNDLE BRANCH BLOCK NONSPECIFIC ST & T-WAVE ABNORMALITY- DIFFUSE LEADS BASELINE ARTIFACT- I, II, III, AVR, AVL, AVF, V1-V6 BORDERLINE ECG Compared to ECG 06/02/2024 20:40:07 NO SIGNIFICANT CHANGE Electronically Signed On 10-29-2025 06:23:53 JOINTER OPERATOR by Alireza Hill D.O.
[2025-10-28 21:22] LABS: Alanine Aminotransferase 252 U/L (6-50); Albumin Level 4.0 g/dL (3.5-5.1); Alkaline Phosphatase 104 U/L (38-126); Anion Gap 7 mmol/L (4-12); Aspartate Amino Transferase 188 U/L (17-59); Bilirubin,Total 0.7 mg/dL (0.2-1.3); Blood Urea Nitrogen 18 mg/dL (9-20); Calcium 9.7 mg/dL (8.4-10.2); Carbon Dioxide 30 mmol/L (22-30); Chloride 103 mmol/L (98-107); Estimated CRCL calculation 96 ml/min; Estimated Glomerular Filt Rate > 60; Glucose 101 mg/dL (65-110); Lipase 344 U/L (23-300); Potassium 3.5 mmol/L (3.4-5.0); Sodium 140 mmol/L (137-145); Total Protein 7.6 g/dL (6.3-8.2)
[2025-10-28 21:24] VITALS: PULSE 78; RESP 17
[2025-10-28] MEDS: IPRATROPIUM 0.5 MG/ALBUTEROL SULFATE 2.5 MG (BASE) AMPUL.NEB 3 ML INHALATION (21:24)
[2025-10-28 21:27] LABS: INR 1.3; Prothrombin Time 16.6 Seconds (11.1-14.7)
[2025-10-28 21:28] LABS: Partial Thromboplastin Time 33.1 Seconds (22.3-36.8)
[2025-10-28 21:30] VITALS: PULSE 84; RESP 15
[2025-10-28] MEDS: FOLIC ACID 1 MG/0.2 ML INJ IV PUSH (21:31)
[2025-10-28] MEDS: THIAMINE HCL 200 MG/2 ML VIAL 100 MG IV PUSH (21:31)
[2025-10-28] MEDS: DEXTROSE 5%/0.45% SOD CHL 1,000 ML 125 ML IV CONT (21:32)
[2025-10-28 21:52] LABS: NT Pro B Type Natriuretic Pept 183 pg/mL (19.9-100)
[2025-10-28 22:15] VITALS: BP 145/66; PULSE 88; RESP 18; O2SAT 98
--- NOTE | 2025-10-28 22:28 | PC.NURSE ---
pt tried to give a urine sample. pt given the option for straight catheter. pt asked if we can give him another try.
[2025-10-28 22:58] LABS: Add Urine Microscopic? NO; Appearance Urine Clear (Clear); Glucose Urine UA Negative (Negative); Leukocyte Esterase Ur Negative LEU/UL (Negative); Nitrate Urine Negative (Negative); Specific Grav Ur 1.041 (1.001-1.035)
[2025-10-28 23:18] LABS: Cannabinoid Screen Urine Negative (Negative)
[2025-10-28] MEDS: diazePAM (*CRX) 10 MG TABLET PO (23:56)
--- NOTE | 2025-10-29 00:19 | PC.NURSE ---
This RN spoke with pts significant other and updated about pt being discharged.
[2025-10-29 00:23] VITALS: BP 142/63; PULSE 85; RESP 20; TEMP 36.5; O2SAT 99
[2025-10-29 00:49] VITALS: BP 142/63; PULSE 85; RESP 20; TEMP 36.5; O2SAT 99
== END 2025-10-29 00:54 | disposition home or self-care (01) ==
PROVIDERS: Emergency Provider Registered Nurse; PCP Internal Medicine
DX: F10.10 Alcohol abuse, uncomplicated (principal); Y90.0 Blood alcohol level of less than 20 mg/100 ml; R74.01 Elevation of levels of liver transaminase levels; F41.9 Anxiety disorder, unspecified; J44.9 Chronic obstructive pulmonary disease, unspecified; G47.33 Obstructive sleep apnea (adult) (pediatric); E78.5 Hyperlipidemia, unspecified; I10 Essential (primary) hypertension; F17.210 Nicotine dependence, cigarettes, uncomplicated; I45.10 Unspecified right bundle-branch block; R94.31 Abnormal electrocardiogram [ECG] [EKG]
CPT/HCPCS: 36415; 71045; 71260; 74177; 80053; 80307; 81003; 82077; 83605; 83690; 83880; 85025; 85380; 85610; 85730; 93005; 94640; 96361; 96374; 96375; 99284; A9270; J3411; Q9967